=== PATIENT | male | born 1955 | race African-American/Black ===

== ENCOUNTER 2017-05-17 15:29 | Inpatient (IN) | payer OTHER ==
[2017-05-17] MEDS ORDERED: NS 1,000 ML IV SCH (16:45)
[2017-05-17] MEDS: HYDROmorphONE/DILAUDID 1 MG/ML INJ IVP PRN (17:24)
[2017-05-17] MEDS ORDERED: NS 1,000 ML IV ONE (17:36)
[2017-05-17] MEDS ORDERED: ERTAPENEM 1 GM in NS 100 ML IV SCH (18:00)
--- NOTE | 2017-05-17 18:15 | GHP ---
[f rep st] HISTORY AND PHYSICAL DATE OF ADMISSION: 05/17/2017 CHIEF COMPLAINT: Rectal pain. HISTORY OF PRESENT ILLNESS: This is a 62-year-old male with a history of CLL. His last treatment wa s about 2 years ago. His white blood cell count usually stays around 45,000. He has had 4 days of i ncreasing perirectal pain and swelling. He has had chills, but no fever. He has not had a bowel mov ement for about a week. He has pain on urination. His scrotum is swelling as well. He saw his onco logist today, who sent him here. He denies any chest pain or shortness of breath. REVIEW OF SYSTEMS: A 10-point review of systems was obtained. Other than what was stated, was negat liza. PAST MEDICAL HISTORY: 1. CLL, last treated 2014. He sees Dr. Gross. 2. Hypertension. MEDICATIONS: Reviewed. SOCIAL HISTORY: No smoking or alcohol. FAMILY HISTORY: Reviewed and noncontributory. PHYSICAL EXAM: VITAL SIGNS: Afebrile, blood pressure is 108/67, heart rate 97, oxygen saturation 91 % on room air. GENERAL: The patient is well developed, no apparent distress. HEENT: Nonicteric sc lerae. Extraocular movements intact. Moist mucous membranes. NECK: Supple. No thyromegaly. LUNG S: Good effort. Clear to auscultation bilaterally. CARDIOVASCULAR: Regular rate and rhythm. No m urmurs or gallops. ABDOMEN: Positive bowel sounds, soft, nontender, slightly distended. RECTAL: Pe rirectal area shows significant swelling, especially in the perineum. There is a little bit of drain age as well. Scrotum is also swollen. EXTREMITIES: No clubbing, cyanosis, or edema. SKIN: Withou t rash. Dry, intact. NEUROLOGIC: Moving all 4 extremities equally. PSYCH: Normal mood and affect . LABS: White blood cell count 69,000, where normally is 45,000. He does have neutrophils of 13,000 w ith absolute neutrophil count. Sodium is 137, potassium 2.7, BUN 21, creatinine 1.7, glucose 157. ASSESSMENT: This is a 62-year-old male presenting with perirectal abscess. 1. Perirectal abscess. I discussed the case with Surgery, and we will keep him n.p.o. I have start ed IV Invanz for antibiotics. He most likely will go to surgery. 2. Hypokalemia and acute renal failure. This is probably due to decreased p.o. intake, along with h ydrochlorothiazide. Will replace his potassium. Check a magnesium, give IV fluids and follow. 3. History of chronic lymphocytic leukemia. 4. History of hypertension. Hold hydrochlorothiazide. 5. /[id number]/MODL
[2017-05-17] MEDS ORDERED: BUPIVACAINE 0.5% 30 ML SDV ONE (19:11)
--- NOTE | 2017-05-17 19:24 | PDGENHP ---
History & Physical Chief Complaint: RECTAL PAIN History of Present Illness: 62-YEAR-OLD MALE WITH CLL ON NO CHEMOTHERAPY PRESENTS WITH 4 DAYS OF RECTAL PAIN IN HIS RIGHT BUTTOCK AND [place] [id number] BUT HE HAS CHRONICALLY ELEVATED FROM HIS CLL. HE CURRENTLY HAS NO FEVER BUT IS VERY TENDER IN HIS RIGHT PERIRECTAL AREA. RISKS AND OPTIONS BEEN FULLY DISCUSSED AND HE WILL PROBABLY NEED AN I AND D Pertinent Past, Social, Family History: PAST HISTORY: CLL/NO SURGERIES. REVIEW OF SYSTEMS NEGATIVE ON 10 POINT REVIEW AND HE SPECIFICALLY DOES NOT SMOKE. FAMILY HISTORY: NONCONTRIBUTORY. ALLERGIES: NONE. MEDICATIONS: NONE Relevant Physical Exam: GENERAL: HEALTHY APPEARING BUT UNCOMFORTABLE 62-YEAR- OLD MALE. CHEST CLEAR. COR REGULAR RHYTHM. ABDOMEN SOFT NONTENDER. EXTREMITIES ARE BENIGN WITH FULL PULSES FULL RANGE OF MOTION. RECTAL EXAM REVEALS A SWELLING TENDERNESS ERYTHEMA AND DRAINAGE FROM THE RIGHT PERIRECTAL AREA. NEURO EXAM IS PHYSIOLOGIC Cardiorespiratory Assessment: IMPRESSION: PERIRECTAL ABSCESS/RISKS AND OPTIONS FULLY DISCUSSED AND HE WISHED TO PROCEED WITH SURGERY. PLAN IS I AND D OF PERIRECTAL ABSCESS AND EXAM UNDER ANESTHESIA
--- NOTE | 2017-05-17 19:41 | PDANEPAE ---
ANE History of Present Illness here for I and D perirectal abscess ANE Past Medical History - Cardiovascular History Hx Hypertension: No Hx Arrhythmias: No Hx Chest Pain: No Hx Coronary Artery / Peripheral Vascular Disease: No Hx CHF / Valvular Disease: No Hx Palpitations: No - Pulmonary History Hx COPD: No Hx Asthma/Reactive Airway Disease: No Hx Recent Upper Respiratory Infection: No Hx Oxygen in Use at Home: No Hx Sleep Apnea: No - Endocrine History Hx Diabetes: No - Renal History Renal History Comment: arf - Cancer History Hx Cancer: Yes Cancer History Comment: CLL - Chronic Pain History Chronic Pain: No ANE Review of Systems Review of systems is: negative Review of Systems: - Exercise capacity Exercise capacity: >=4 METS ANE Patient History - Allergies Allergies/Adverse Reactions: (seasonal allergies) Allergy (Uncoded 05/17/17 16:32) - Home Medications Home medications: home medication list seen and reviewed Home Medications: Hydrochlorothiazide [HCTZ (*)] 25 mg PO DAILY 05/17/17 [Last Taken 05/16/17] Loratadine [Claritin 10 mg] 10 mg PO DAILY PRN 05/17/17 [Last Taken Unknown] Motrin (*) 800 mg PO DAILY PRN 05/17/17 [Last Taken 05/17/17] Potassium Chloride [Klor-Con M10] 10 meq PO DAILY 05/17/17 [Last Taken 05/16/17] - NPO status NPO Status: no food or drink >8 hours - Anes Hx Anes Hx: no prior problems - Smoking Hx Smoking Status: Unknown if ever smoked ANE Labs/Vital Signs - Vital Signs Height: 193.04 cm Weight: 117.934 kg ANE Physical Exam - Airway Neck exam: FROM Mallampati Score: Class 1 - Pulmonary Pulmonary: no respiratory distress - Cardiovascular Cardiovascular: regular rate and rhythym - ASA Status ASA Status: II ANE Anesthesia Plan Anesthesia Plan: GA w LMA
[2017-05-17] MEDS ORDERED: fentaNYL 100 MCG/2 ML INJ ONE (19:49)
[2017-05-17] MEDS ORDERED: PROPOFOL/EMULSION 500 MG/50 ML BOTTLE IV ONE (19:51)
[2017-05-17] MEDS ORDERED: HYDROmorphONE/DILAUDID 2 MG/ML INJ ONE (19:57)
[2017-05-17] MEDS ORDERED: ALBUTEROL 3 ML DEYVIAL IH PRN (20:20)
[2017-05-17] MEDS ORDERED: NS 500 ML IV PRN (20:20)
[2017-05-17] MEDS ORDERED: ONDANSETRON 4 MG/2 ML VIAL IVP PRN (20:20)
[2017-05-17] MEDS ORDERED: PROMETHAZINE HCL 25 MG/ML INJ IVP PRN (20:20)
[2017-05-17] MEDS ORDERED: fentaNYL 100 MCG/2 ML INJ IVP PRN (20:20)
[2017-05-17] MEDS ORDERED: NALOXONE HCL 0.4 MG/ML INJ IVP PRN ×2 (20:20→21:42)
[2017-05-17] MEDS ORDERED: HYDROmorphONE/DILAUDID 1 MG/ML INJ IVP PRN (20:20)
[2017-05-17] MEDS ORDERED: THROMBIN (BOVINE) 20,000 UNIT SPRAY TP ONE (20:42)
[2017-05-17] MEDS ORDERED: ceFAZolin 1 GM VIAL ONE (20:44)
--- NOTE | 2017-05-17 21:33 | SOAPPROG ---
SOAP Progress Note Assessment/Plan: Assessment: PT WITH BAD PERIRECTAL INFECTION, POSSIBLY INVOLVING SCROTUM RISKS AND OPTIONS FULLY DISCUSSED NONDIABETIC BUT WITH CML BUT NO CHEMO Plan:OR I &D 05/17/17 21:30 Objective: 05/16/17 05/17/17 05/18/17 05:59 05:59 05:59 Intake Total 1000 Balance 1000 ICD10 Worksheet Patient Problems: Problems Problem Status Onset Perirectal abscess Acute - ICD10 Problem Qualifiers (1) Perirectal abscess
--- NOTE | 2017-05-17 21:36 | POSTOPPROG ---
Post Op Note Date of Operation: 05/17/17 Surgeon: Ta Weems Anesthesiologist: CARRIE Anesthesia: GET(General Endotracheal) Pre-op Diagnosis: PERIRECTAL ABSCESS Post-op Diagnosis: FORNIERRE'S GANGRENE Indication: PAIN, INFECTION Procedure: EUA, RADICAL DEBRIDEMENT OF RT BUTTOCK AND SCROTUM WITH SKELOTONIZATION OF Findings: NECROTIZING INFECTION IN RT BUTTOCK EXTENDING INTO RT HEMISCROTUMTO THE PUB Inf/Abcess present in the surg proc area at time of surgery?: Yes Depth: Deep Incisional (Fascial) EBL: Minimal Complications: 0 Specimen(s): NECROTIC TISSUE OF PERINEUM
[2017-05-17] MEDS ORDERED: HYDROmorphONE/DILAUDID 6 MG/30 ML PCA IV PRN (21:42)
[2017-05-17] MEDS ORDERED: NON-FORMULARY NEW DRUG (Loratadine [Claritin 10 Mg] 10 MG) PO PRN (21:44)
[2017-05-17] MEDS ORDERED: CETIRIZINE 10 MG TAB PO PRN (21:53)
[2017-05-17] MEDS ORDERED: CLINDAMYCIN 600 MG/DEXTROSE 50 ML IV SCH (22:00)
[2017-05-17] MEDS: POTASSIUM Cl (KCl) 100 ML IV SCH (22:32)
[2017-05-17] MEDS: VANCOMYCIN 1.5 GM in D5W 250 ML IV SCH (23:25)
[2017-05-18] MEDS ORDERED: PIPERACILLIN/TAZO 3.375 GM/DEX 50 ML IV SCH
[2017-05-18] MEDS: PIPERACILLIN/TAZO 3.375 GM/DEX 50 ML IV SCH ×2 (00:59→06:18)
[2017-05-18] MEDS: POTASSIUM Cl (KCl) 100 ML IV SCH ×3 (01:54→05:14)
[2017-05-18] MEDS ORDERED: ALBUMIN 5% 1,000 ML IV ONE (03:00)
[2017-05-18 05:46] LABS: ADD MORPH? NO; ADD SCAN? YES; ATYPICAL LYMPHOCYTE FLAG 0 (0-99); FRAGMENT RBC FLAG 0 (0-99); HEMATOCRIT 35.3 % (40.0-51.0); HEMOGLOBIN 12.2 g/dL (13.7-17.5); LIPEMIA HEMOLYSIS FLAG 90 (0-99); MEAN CELL HEMOGLOBIN 35.6 pg (27.9-34.1); MEAN CELL HEMOGLOBIN CONCENTR. 34.6 g/dL (32.4-36.7); MEAN CELL VOLUME 102.9 fL (81.5-99.8); MEAN PLATELET VOLUME 11.4 fL (8.7-11.7); PLATELET CLUMPS FLAG 10 (0-99); PLATELET COUNT 106 10^3/uL (150-400); RED BLOOD CELL COUNT 3.43 10^6/uL (4.40-6.38); RED CELL DISTRIBUTION WIDTH 13.2 % (11.5-15.2)
[2017-05-18 05:48] LABS: LEFT SHIFT FLG 130 (0-99)
[2017-05-18 05:57] LABS: ANION GAP 9 mEq/L (8-16); CALCIUM 7.4 mg/dL (8.5-10.4); CARBON DIOXIDE 29 mEq/l (22-31); CHLORIDE 100 mEq/L (97-110); CREATININE 1.2 mg/dL (0.7-1.3); GLOMERULAR FILTRATION RATE > 60; GLUCOSE 152 mg/dL (70-100); MAGNESIUM 1.9 mg/dL (1.6-2.3); POTASSIUM 2.8 mEq/L (3.5-5.2); SODIUM 138 mEq/L (134-144)
[2017-05-18 06:07] LABS: ADD DIFF? YES
[2017-05-18 06:12] LABS: MACROCYTES 1+; PLATELET ESTIMATE DECREASED (ADEQ); TOXIC VACUOLIZATION PRESENT
[2017-05-18] MEDS ORDERED: PROTOCOL POTASSIUM 1 DOSE MISC PRN (07:50)
[2017-05-18] MEDS ORDERED: POTASSIUM CL 10 MEQ TAB PO ONE ×2 (07:51→21:57)
[2017-05-18] MEDS ORDERED: BUPIVACAINE 0.5% 30 ML SDV ONE ×2 (07:53→11:46)
[2017-05-18] MEDS ORDERED: HYDROCHLOROTHIAZIDE 25 MG TAB PO SCH (09:00)
--- NOTE | 2017-05-18 10:27 | PDANEPAE ---
ANE History of Present Illness Patient presents for I&D of a pj-rectal abscess ANE Past Medical History - Cardiovascular History Hx Hypertension: No Hx Arrhythmias: No Hx Chest Pain: No Hx Coronary Artery / Peripheral Vascular Disease: No Hx CHF / Valvular Disease: No Hx Palpitations: No - Pulmonary History Hx COPD: No Hx Asthma/Reactive Airway Disease: No Hx Recent Upper Respiratory Infection: No Hx Oxygen in Use at Home: No Hx Sleep Apnea: No - Endocrine History Hx Diabetes: No - Renal History Renal History Comment: arf - Cancer History Hx Cancer: Yes Cancer History Comment: CLL - Chronic Pain History Chronic Pain: No ANE Review of Systems Review of Systems: ANE Patient History - Allergies Allergies/Adverse Reactions: (seasonal allergies) Allergy (Uncoded 05/17/17 16:32) - Home Medications Home medications: home medication list seen and reviewed Home Medications: Hydrochlorothiazide [HCTZ (*)] 25 mg PO DAILY 05/17/17 [Last Taken 05/16/17] Loratadine [Claritin 10 mg] 10 mg PO DAILY PRN 05/17/17 [Last Taken Unknown] Motrin (*) 800 mg PO DAILY PRN 05/17/17 [Last Taken 05/17/17] Potassium Chloride [Klor-Con M10] 10 meq PO DAILY 05/17/17 [Last Taken 05/16/17] - NPO status NPO Status: no food or drink >8 hours - Anes Hx Anes Hx: no prior problems - Smoking Hx Smoking Status: Unknown if ever smoked ANE Labs/Vital Signs - Labs Result Diagrams: 05/18/17 05:00 05/18/17 05:00 - Vital Signs Blood Pressure: 86/71 Heart Rate: 80 Respiratory Rate: 17 O2 Sat (%): 96 Height: 193.04 cm Weight: 117.934 kg ANE Physical Exam - Airway Neck exam: FROM Mallampati Score: Class 1 Mouth exam: normal dental/mouth exam - Pulmonary Pulmonary: no respiratory distress - Cardiovascular Cardiovascular: regular rate and rhythym - ASA Status ASA Status: III ANE Anesthesia Plan Anesthesia Plan: GA w LMA (RBA discussed)
[2017-05-18] MEDS ORDERED: ALBUMIN 5% 250 ML BOTTLE IV ONE (10:31)
[2017-05-18] MEDS ORDERED: PROPOFOL 200 MG/20 ML VIAL ONE ×2 (10:32→11:35)
[2017-05-18] MEDS ORDERED: fentaNYL 100 MCG/2 ML INJ ONE ×2 (10:32→11:35)
[2017-05-18] MEDS ORDERED: LIDOCAINE 2% 5 ML SDV ONE (10:33)
[2017-05-18] MEDS ORDERED: POTASSIUM Cl (KCl) 10 MEQ in NS 50 ML IV ONE (10:45)
--- NOTE | 2017-05-18 10:53 | GCON ---
[f rep st] CONSULTATION INFECTIOUS DISEASE CONSULTATION DATE OF CONSULTATION: 05/18/2017 REFERRING PHYSICIAN: Joceline More MD REASON FOR CONSULTATION: Kandi gangrene. CHIEF COMPLAINT: Scrotal and right buttock pain. HISTORY OF PRESENT ILLNESS: This is a 62-year-old male with past medical history si gnificant for CLL, last treated [place] [address] Gross. He states that, about 5 days ago, he started to feel unwell suddenly with myalgias. He did not recall any fevers or shaking chills over the past 4-5 days, but progressively felt more unwell each day. On , he had pain involving the tailb one region but over the next successive days, he had increasing pain and swelling involving his right side of the scrotum and right buttock region. He was having some difficulty with urination over the last several days, and has not moved his bowels since 1 week now. He has felt like he needed to mov e it, but he just could not pass any stool. When he went in to see his oncologist yesterday, his [facility] te blood cell count was 69,000. He was sent to the ER. His temperature was 38.1. He was seen by Suzanne gerardo, who took him to the OR. Brief operative note was reviewed and operative findings suggested Fo urnier gangrene. He underwent a radical debridement of the right buttock and scrotum. Cultures were taken, and so far, polymicrobial Gram stain with gram-positive cocci in clusters, gram-positive cocc i in chains, gram-negative rods, and gram-positive rods seen. Cultures are pending. Blood cultures x2 sets are also pending. He was given Invanz prior to surgery but then placed on vancomycin and Zos yn thereafter. He states that his pain initially was 8/10 or 9/10 prior to surgery, and today is mor e of 1/10 or 2/10. He is currently n.p.o. for possible repeat washout this morning. Infectious Dise ase is now consulted for further evaluation and opinion regarding above. REVIEW OF SYSTEMS: GENERAL: Denied any fevers, shaking chills. No headaches. EYES: No change in vision. ENT: No sore throat, difficulty swallowing, ear pain, or ear drainage. CARDIOVASCULAR: De nies any chest pain or rapid heartbeat. RESPIRATORY: Denies any shortness of breath, cough, or sput um production. ABDOMEN: No nausea, vomiting, or pain. He has not moved his bowels in 1 week. PEG TOURINARY: He was having intermittent problems with urination, felt like he needed to urinate but wa s unable to actually pass any urine. When he did pass urine, he stated it was dark but without any b urning sensation, there was no blood in the urine as well, and he has not had any penile discharge. He also denies any penile sores or wounds. MUSCULOSKELETAL: Feels like he has body aches mostly in the lower extremities. Denies any joint pains or joint swelling. SKIN: Denies any open wounds or r ashes. Rest of 10-point review of systems essentially negative except for above. PAST MEDICAL HISTORY: Significant for CLL, last treated [place] [address] Gross; hypertension. PAST SURGICAL HISTORY: None. ALLERGIES: No known drug allergies. SOCIAL HISTORY: He smokes cigars about 4 times a month. He drinks alcohol socially. Denies any ill icit drugs or marijuana. 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 He lives with his and his daughter, who are w ell. He has not had any outside travel internationally recently. He does ride a motorcycle and last time he rode it for a prolonged period of time was back in February, when he went to [place]. Otherwi se, he has mostly been in his car driving around or sitting at his desk related to work. FAMILY HISTORY: Reviewed and found to be noncontributory. MEDICATIONS: As per SEP. PHYSICAL EXAMINATION: VITAL SIGNS: Temperature is 36.7, pulse is 80, respiratory rate is 17, blood pressure 86/71, saturations are 96% on 2 L O2 by the nasal cannula. GENERAL: Patient is resting com fortably in bed. No acute respiratory distress. He is in the intensive care unit. Awake alert, and oriented x3. HEENT. Head is normocephalic, atraumatic. Eyes: There is no conjunctival injection. No petechiae noted. Pupils are reactive to light bilaterally. Oropharynx is clear. There is no p osterior erythema or thrush. CARDIOVASCULAR: S1, S2. Regular rate, rhythm. No murmurs appreciated . RESPIRATORY: Clear to auscultate bilaterally. No rhonchi or rales appreciated. ABDOMEN: Positi ve bowel sounds in all 4 quadrants. Slightly distended. Nontender in the abdominal part. In the lo wer pelvis, or suprapubic region, he has some tenderness especially toward the right side. SCROTUM: Perineum region was not well examined as he has operative dressings in place. The limited examinati on showed that he has some induration, especially involving the right scrotum. It is tender with any slight manipulation of the . LOWER EXTREMITIES: No lower extremity edema. MUSCULOSKELET AL: No joint pain on palpation of the joints. SKIN: No other obvious other rashes or open wounds, other than stated above. LABORATORY DATA: White blood cell count is 32.9, platelets are 106, hemoglobin is 12.2, hematocrit 3 5.3, neutrophils 13, bands 14%. Toxic and Dohle bodies present. Chemistry: Sodium 138, potassium 2.8, chloride is 100, bicarb is 29, BUN is 19, creatinine is 1.2 (down from 1.7). LFTs on admission were within the normal range except for total bilirubin which was slightly elevated at 1.6. Microbiology: Blood cultures x2 sets are pending. Operative cultures are also pending. Gram stai n as stated in the HPI. ASSESSMENT: Kandi gangrene. PLAN: Patient status post extensive debridement yesterday by Surgery; appreciate their evaluation an d care. I would continue with broad-spectrum antimicrobials for now with vancomycin and Zosyn. I am going to increase Zosyn dosing to 4.5 q.6h until cultures are pending, and then can tailor back down if no pseudomonas is isolated. Will order a vancomycin trough for the morning prior to the 4th dose . Care was coordinated with the pharmacy team and nursing staff. The plan of care was discussed in detail with the patient, including the nature of the infection, treatment plans, and course of therap y. I thank you very much for providing this opportunity to care for your patient in consultation. /[id number]/MODL
[2017-05-18] MEDS ORDERED: LR 1,000 ML IV ONE (11:09)
[2017-05-18] MEDS ORDERED: CALCIUM CHLORIDE 1 GM/10 ML INJ ONE (11:25)
[2017-05-18] MEDS ORDERED: THROMBIN (BOVINE) 20,000 UNIT SPRAY TP ONE (11:46)
[2017-05-18] MEDS ORDERED: OXYCODONE/APAP 5/325 TAB PO PRN (12:03)
[2017-05-18] MEDS ORDERED: LR 500 ML IV PRN (12:03)
[2017-05-18] MEDS ORDERED: ONDANSETRON 4 MG/2 ML VIAL IVP PRN (12:03)
[2017-05-18] MEDS ORDERED: HYDROmorphONE/DILAUDID 1 MG/ML INJ IVP PRN (12:03)
[2017-05-18] MEDS ORDERED: NALOXONE HCL 0.4 MG/ML INJ IVP PRN (12:03)
[2017-05-18] MEDS ORDERED: fentaNYL 100 MCG/2 ML INJ IVP PRN (12:03)
[2017-05-18] MEDS ORDERED: ONDANSETRON 4 MG/2 ML VIAL ONE (12:15)
[2017-05-18] MEDS ORDERED: DEXAMETHASONE 4 MG/ML VIAL ONE (12:15)
[2017-05-18] MEDS ORDERED: PHENYLEPHRINE HCL 100 MCG/ML SYR ONE (12:15)
--- NOTE | 2017-05-18 12:26 | POSTOPPROG ---
Post Op Note Date of Operation: 05/18/17 Surgeon: Ta Weems Chairman President And Chief Executive Officer: Felicita Groves Anesthesiologist: Prashanth Urban Anesthesia: GET(General Endotracheal) Pre-op Diagnosis: perirectal abscess, Kandi's gangrene, CLL Post-op Diagnosis: same Indication: 62 Y M s/p I&D yesterday, brought back to OR today for assessment and I&D. Procedure: I&D of perirectal abscess and Kandi's gangrene, R spermatocelectomy Findings: some posterior necrosis, testicles viable Inf/Abcess present in the surg proc area at time of surgery?: Yes Depth: Deep Incisional (Fascial) EBL: 50-100 Complications: none Drains: Tatyana Specimen(s): spermatocele to pathology
--- NOTE | 2017-05-18 12:30 | SOAPPROG ---
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 POD#0&1. Initial infection and necrotic tissue was extensive--tracks towards scrotum and R testicle completely exposed. Tissue quite clean and viable on second look today in OR. Did require some debridement, mostly posteriorly near rectum. Incontinence could be an issue. Will need to observe. Plan to bring back to OR on for 3rd look, dressing change/possible partial closure. Wound is very close to rectum and rectal wall. Not ruling out the possibility of needing a diverting colostomy for healing at some point. Appreciate IM and ID input. 05/18/17 12:26 Objective: Vital Signs Temp Pulse Resp BP Pulse Ox 36.7 C 80 17 86/71 L 96 05/18/17 10:40 05/18/17 10:40 05/18/17 10:40 05/18/17 10:40 05/18/17 10:40 Microbiology 05/17/17 19:26 Gram Stain - Final Buttock - Tissue 05/17/17 20:18 Gram Stain - Final Other - Eswab Laboratory Results 05/18/17 05:00 05/18/17 05:00 05/17/17 05/18/17 05/19/17 05:59 05:59 05:59 Intake Total 1543 Output Total 8709 Balance 5495 ICD10 Worksheet Patient Problems: Problems Problem Status Onset Perirectal abscess Acute
[2017-05-18] MEDS ORDERED: diphenhydrAMINE 25 MG CAP PO SCH ×2 (12:45→14:00)
[2017-05-18] MEDS ORDERED: IMMUNE GLOBULIN 20 GM/200 ML VIAL IV SCH (12:45)
[2017-05-18] MEDS ORDERED: ACETAMINOPHEN 325 MG TAB PO SCH ×2 (12:45→14:00)
[2017-05-18] MEDS: VANCOMYCIN 1.5 GM in D5W 250 ML IV SCH ×2 (13:45→22:07)
[2017-05-18] MEDS: PIPERACILLIN/TAZO 4.5 GM/DEX 100 ML IV SCH ×2 (14:46→17:31)
[2017-05-18] MEDS ORDERED: IMMUNE GLOBULIN 10 GM/100 ML VIAL IV ONE (15:00)
[2017-05-18] MEDS ORDERED: IMMUNE GLOBULIN 20 GM/200 ML VIAL IV ONE ×2 (15:00)
--- NOTE | 2017-05-18 15:52 | ASMTCMCOM ---
CM Note CM Note Notes: Patient is POD # 0 + 1 I&D perirectal abscess. He has a history of CLL but is not receiving chemo at this time. No PT/OT ordered; patient lives indepedently with his . He is scheduled to back to the OR in two days for a dressing change and possible closure. He may need a diverting colostomy. Discharge needs TBD. CM will follow. Date Signed: 05/18/2017 03:52 PM Electronically Signed By:Rosalia Francisco RN
--- NOTE | 2017-05-18 15:55 | GCON ---
[f rep st] CONSULTATION PULMONARY/CRITICAL CARE CONSULTATION DATE OF CONSULTATION: 05/18/2017 REFERRING PHYSICIAN: Ta Weems MD REASON FOR REFERRAL: Evaluation and management of anemia, hypokalemia, and hypotension. HISTORY OF PRESENT ILLNESS: The patient is a 62-year-old male with a history of CLL, not on treatmen t for years, who was in his usual state of good health when about 5 days ago he started to feel unwel l with some myalgias as well as some soreness around his tailbone/buttocks. That increased and began to involve his scrotum. He started to have difficulty with urination and moving his bowels. He esperanza t to see his oncologist and was febrile. He referred to the emergency department, where he was evalu ated by Dr. Weems and taken urgently to the operating room, where he was found to have Kandi gangr alexander with extensive debridement of a large area of his buttocks and scrotum. This was done last night , and the patient was taken back to the operating room today, where Dr. Weems reports there was minim al amount of residual infection, with tissues looking quite viable overall. The plan is for repeat s urgery in 2-3 days to do a final wound closure. The patient reports that his pain control is good. He has no nausea or vomiting and starting to take some p.o. PAST MEDICAL HISTORY: 1. CLL, last treated in 2014. 2. Hypertension. MEDICATIONS: At the time of admission include hydrochlorothiazide, potassium, and loratadine. ALLERGIES: None. SOCIAL HISTORY: Patient drinks occasionally and smokes cigars occasionally. 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 FAMILY HISTORY: Unremarkable. REVIEW OF SYSTEMS: A 10-point review of systems adds nothing to the history of present illness. PHYSICAL EXAMINATION: GENERAL: The patient is awake, alert, in no acute distress. VITAL SIGNS: Bl ood pressure is 85/71 with a heart rate of 83. His temperature was 38.2 at mid day, and is now 37.4. His oxygen saturations are 98% on 2 L. HEENT: Normocephalic and atraumatic. No icterus. NECK: No JVD. Trachea is midline. CHEST: Clear to auscultation. CARDIAC: Regular rate and rhythm witho ut murmur. ABDOMEN: Soft, nontender. Bowel sounds are present. He has some suprapubic tenderness. He has a dressed wound around the groin and buttocks with a JAVED drain that is in place. EXTREMITIES : No clubbing, cyanosis, or edema. NEURO: The patient is awake and alert. He has good motor stren gth in all extremities. LABORATORY: Potassium is 2.8, glucose is 152. White blood count is 33.0, hemoglobin is 12.2. He olmedo s 14% bands. Platelet count was 106. Wound Gram stain is positive for 4+ gram-positive cocci, 3+ gr am-negative rods, and 1+ gram-positive rods. ASSESSMENT: 1. Kandi gangrene. This has been debrided twice in last 24 hours, with marked improvement in the appearance on the 2nd debridement. The patient is currently being treated with Zosyn and vancomycin . Cultures are pending. 2. Chronic lymphocytic leukemia. The patient has a chronically elevated white blood count. He has been seen by Dr. Johnson, who will give him intravenous immunoglobulin to try to help with his immun e response to the infection. 3. Hypokalemia. This is being corrected with intravenous potassium. 4. Hypertension. This is likely due to large volume fluid shifts from the patient's infection. His blood pressure is somewhat low, but stable. He has fairly good urine output. RECOMMENDATIONS: 1. Continue IV fluids. Boluses will be given as needed for hypotension and reduced urine output. 2. Replace potassium and follow. 3. Continue antibiotics as per ID. 4. IVIG as per Dr. Johnson. /[id number]/MODL
--- NOTE | 2017-05-18 17:08 | HOSPPROG ---
Hospitalist Progress Note Assessment/Plan: # perirectal abscess- status post excision today intraoperatively- patient with persistent pain however no systemic symptoms Telemetry(personally reviewed and interpreted) sinus rhythm - blood pressure stable postoperative - continue empiric antibiotics - continue pain meds - NPO after midnight for debridement in a.m. # CLL- WBC 69 -> 32 this am - oncology following Oxygen saturations 98% on 3 L - IVIG today - recheck in am # Leukocytosis - as above # Hypokalemia - repleting aggressively on protocol # proph - lovenox per surgery # diet - regular - the NPO after midnight # dispo - > 2MN as requires surgical intervention for perirectal abscess I have discussed case with Dr. Johnson - will give IVIG today and monitor counts inpatient Subjective: feels well no CP Objective: Vital Signs Temp Pulse Resp BP Pulse Ox 36.6 C 69 21 H 88/57 L 98 05/18/17 16:15 05/18/17 16:45 05/18/17 16:45 05/18/17 16:45 05/18/17 16:45 Microbiology 05/17/17 19:26 Gram Stain - Final Buttock - Tissue 05/17/17 20:18 Gram Stain - Final Other - Eswab Laboratory Results 05/18/17 05:00 05/18/17 05:00 05/17/17 05/18/17 05/19/17 05:59 05:59 05:59 Intake Total 6971 925 Output Total 1480 125 Balance 5491 800 - Physical Exam Constitutional: appears nourished Eyes: anicteric sclera Ears, Nose, Mouth, Throat: moist mucous membranes Cardiovascular: regular rate and rhythym Respiratory: no respiratory distress Gastrointestinal: normoactive bowel sounds Genitourinary: no bladder fullness Skin: warm Musculoskeletal: No asymmetric calves Neurologic: AAOx3 Psychiatric: interacting appropriately Lymph, Heme, Immunologic: no cervical LAD ICD10 Worksheet Patient Problems: Problems Problem Status Onset Perirectal abscess Acute
[2017-05-18] MEDS: D5W 1/2 NS W/ 20 KCl/L 1,000 ML IV SCH (17:27)
[2017-05-18 20:41] LABS: POTASSIUM 3.4 mEq/L (3.5-5.2)
[2017-05-19] MEDS: PIPERACILLIN/TAZO 4.5 GM/DEX 100 ML IV SCH ×4 (00:04→18:00)
[2017-05-19 06:25] LABS: ADD MORPH? NO; ATYPICAL LYMPHOCYTE FLAG 0 (0-99); FRAGMENT RBC FLAG 0 (0-99); LEFT SHIFT FLG 50 (0-99); LIPEMIA HEMOLYSIS FLAG 80 (0-99); MEAN CELL VOLUME 105.6 fL (81.5-99.8); RED CELL DISTRIBUTION WIDTH 13.2 % (11.5-15.2)
[2017-05-19] MEDS: HYDROmorphONE/DILAUDID 1 MG/ML INJ IVP PRN (06:32)
[2017-05-19 06:34] LABS: HEMATOCRIT 28.4 % (40.0-51.0); HEMOGLOBIN 9.3 g/dL (13.7-17.5); MEAN CELL HEMOGLOBIN 34.6 pg (27.9-34.1); MEAN CELL HEMOGLOBIN CONCENTR. 32.7 g/dL (32.4-36.7); MEAN PLATELET VOLUME 11.7 fL (8.7-11.7); PLATELET CLUMPS FLAG 20 (0-99); PLATELET COUNT 158 10^3/uL (150-400); RED BLOOD CELL COUNT 2.69 10^6/uL (4.40-6.38)
[2017-05-19 06:40] LABS: ADD DIFF? YES; ADD SCAN? NO
[2017-05-19 06:52] LABS: ALANINE AMINOTRANSFERASE 27 IU/L (21-72); ALBUMIN 2.3 g/dL (3.5-5.0); ALKALINE PHOSPHATASE 63 IU/L (38-126); ANION GAP 8 mEq/L (8-16); ASPARTATE AMINOTRANSFERASE 23 IU/L (17-59); BILIRUBIN,TOTAL 0.5 mg/dL (0.1-1.4); CALCIUM 8.3 mg/dL (8.5-10.4); CARBON DIOXIDE 29 mEq/l (22-31); CHLORIDE 99 mEq/L (97-110); CREATININE 1.1 mg/dL (0.7-1.3); GLOMERULAR FILTRATION RATE > 60; GLUCOSE 229 mg/dL (70-100); POTASSIUM 3.6 mEq/L (3.5-5.2); SODIUM 136 mEq/L (134-144); TOTAL PROTEIN 4.5 g/dL (6.3-8.2)
[2017-05-19 07:34] LABS: PLATELET ESTIMATE ADEQUATE (ADEQ)
[2017-05-19 07:38] LABS: MACROCYTES 2+
[2017-05-19 07:39] LABS: SMUDGE CELLS 1+; TOXIC GRANULATION PRESENT
[2017-05-19] MEDS ORDERED: POTASSIUM CL 10 MEQ TAB PO ONE ×2 (07:48→19:37)
--- NOTE | 2017-05-19 09:58 | GCON ---
[f rep st] CONSULTATION INPATIENT HEMATOLOGY CONSULTATION DATE OF CONSULTATION: 05/19/2017 REFERRING PHYSICIAN: Olive Carter MD OUTPATIENT ONCOLOGIST: Dr. Sanjiv Gross. REASON FOR CONSULTATION: Perirectal abscess in a patient with chronic lymphocytic leukemia. 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 He was treated in 2010 with FCR and remained in remission until 2014 when he r equired treatment with bendamustine and rituximab. This again induced a complete remission. Over past several months, his white blood cell count has been rising, though he has not had any new symp toms or manifestations of disease, and Dr. Gross has been watching him expectantly. Several days prior to admission, he developed fever, malaise, and rectal pain. He was seen in our cl inic and was found to have a perirectal abscess. He was admitted to the hospital and underwent emerg ent drainage and debridement as there was some gangrenous tissue in the perineum. He was taken back again yesterday to the operating room for additional debridement. He is on broad-spectrum antibiotic s. He says he is feeling much better, and his vital signs have been stable. He also received a dose of IVIG yesterday, 50 g, which is approximately 0.4 g/kg. He has not required IVIG before. Immunog lobulin levels were sent on admission and are currently pending. PAST MEDICAL HISTORY: 1. Chronic lymphocytic leukemia as described above. 2. Hypertension. 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 ALLERGIES: No known drug allergies. FAMILY HISTORY: Noncontributory. SOCIAL HISTORY: Nonsmoker, nondrinker. Lives with his . REVIEW OF SYSTEMS: Aside from pertinent positives in HPI, 14-point review of systems negative. PHYSICAL EXAMINATION: VITAL SIGNS: Temperature is 36.5, blood pressure 104/65, heart rate 64, oxyge n saturation 100% on 2 L. GENERAL: He was well-appearing and in no acute distress. HEENT: His scl erae were anicteric. Oropharynx clear. NECK: Supple without lymphadenopathy. LUNGS: Clear to aus cultation bilaterally. CARDIAC: Regular rate and rhythm. No murmurs, gallops, or rubs. ABDOMEN: Normoactive bowel sounds. Nontender. Nondistended. RECTAL: Examination was deferred. EXTREMITIES : 1+ edema. SKIN: No petechiae or purpura. NEUROLOGIC: He is alert and oriented x3. LABORATORY DATA: White count 61.6, hemoglobin 9.3, platelets 158. Differential was 17% neutrophils, 4% bands, 77% lymphocytes with an absolute lymphocyte count of 47,000. Sodium 136, potassium 3.6, c hloride 99, bicarb 29, BUN 20, creatinine 1.1. LFTs were normal. Albumin 2.3. IMPRESSION: This is a 62-year-old man with a history of chronic lymphocytic leukemia who presented w ith a perirectal abscess. This has been drained. He is on appropriate antibiotics. 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 I will defer to Dr. Gross whether he wishes to continue this in e outpatient setting. Patients are typically continued on at least 6-12 months of monthly [facility] to prevent further infections. His chronic lymphocytic leukemia does not require treatmen t now, but he may take that up with Dr. Gross in the future. We would likely defer any further the rapy until his infection is completely resolved given that any such therapy would likely be immunosup pressive as well. Thank you for this consultation. We will continue to follow Mr. [facility] with you [facility]. /[id number]/MODL
--- NOTE | 2017-05-19 10:07 | SOAPPROG ---
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 POD#1&2. To OR tomorrow for wound check, washout, possible further I&D, and possible partial closure. Wound vac likely not feasible due to location. Some concern regarding future fecal incontinence due to proximity of wounds to rectum and sphincter muscles. Need for temporary diverting colostomy not completely ruled out, but will try to manage wounds and heal without it for now. These concerns discussed with patient today. Continue tay catheter. S: Doing well. Pain is much better compared to admit. O: alert, nad oob in chair nontoxic appearing no wob abd soft wounds with adriana and serosanguinous drainage. not fully viewed as patient sitting in chair. Dr. Weems to [facility] tomorrow. 05/19/17 10:03 Objective: Vital Signs Temp Pulse Resp BP Pulse Ox 36.5 C 64 17 104/65 100 05/19/17 06:00 05/19/17 08:00 05/19/17 08:00 05/19/17 08:00 05/19/17 08:00 Microbiology 05/17/17 20:18 Gram Stain - Final Other - Eswab 05/17/17 19:26 Gram Stain - Final Buttock - Tissue Laboratory Results 05/19/17 06:15 05/19/17 06:15 05/18/17 05/19/17 05/20/17 05:59 05:59 05:59 Intake Total 7878 9610 Output Total 8214 8437 Balance 0396 4210 ICD10 Worksheet Patient Problems: Problems Problem Status Onset Perirectal abscess Acute
[2017-05-19 11:25] LABS: POTASSIUM 3.6 mEq/L (3.5-5.2)
--- NOTE | 2017-05-19 11:46 | PCMIDPN ---
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 GPCs in clusters seen on Gram stain but no Staph aureus has been isolated to date. Will continue vancomycin and Zosyn pending maturity of cultures. If no MRSA isolated, plan to discontinue vancomycin. If no Pseudomonas or Enterococcus isolated, may be able to modify antibiotic therapy for mixed coverage without anti pseudomonal or enterococcal activity such as ertapenem. Will continue at current vancomycin dose with trough of 10 since no MRSA isolated and this should be adequate for skin and soft tissue infection. Await immunoglobulin levels in the setting of CLL. Plans for repeat evaluation under anesthesia tomorrow by surgical service. 05/19/17 11:43 05/19/17 11:50 Subjective: Overall patient feels better with some residual pain in right buttock with sitting. Objective: Vital Signs Temp Pulse Resp BP Pulse Ox 36.5 C 74 16 115/50 L 93 05/19/17 10:20 05/19/17 10:20 05/19/17 10:20 05/19/17 10:20 05/19/17 10:20 Microbiology 05/17/17 19:26 Gram Stain - Final Buttock - Tissue 05/17/17 20:18 Gram Stain - Final Other - Eswab Laboratory Results 05/19/17 06:15 05/19/17 10:45 05/18/17 05/19/17 05/20/17 05:59 05:59 05:59 Intake Total 6971 4670 Output Total 1480 2625 Balance 5491 2045 Vancomycin # 2 Zosyn # 2 Operative cultures with 2+ GPCs in clusters, 2+ GPCs in chains, 4+ Gram- negative rods, and 1+ Gram-positive rods; 4+ E coli on culture to date Laboratory Tests 05/18/17 05/19/17 05:00 11:09 Vancomycin Trough 10.8 IgG Pending IgA Pending IgM Pending - Physical Exam General Appearance: alert, no apparent distress, non-toxic EENT: pharynx normal, No scleral icterus, No conjunctival petechiae Respiratory: lungs clear, No respiratory distress Cardiac/Chest: regular rate, rhythm, systolic murmur (2/6 throughout) Abdomen: non-tender, No distended Male Genitalia: other (Dressed postoperatively with scrotal tenderness to palpation; mild tenderness over upper right buttock) ICD10 Worksheet Patient Problems: Problems Problem Status Onset Perirectal abscess Acute
[2017-05-19] MEDS: VANCOMYCIN 1.5 GM in D5W 250 ML IV SCH ×2 (12:01→22:09)
[2017-05-19] MEDS: OXYCODONE/APAP 5/325 TAB PO PRN (14:07)
--- NOTE | 2017-05-19 15:12 | HOSPPROG ---
Hospitalist Progress Note Assessment/Plan: # Fourniparas's gangrene- status post excision intraoperatively 05/18- patient pain improved since OR yesterday- however still intense attempting to stand Telemetry (personally reviewed and interpreted) sinus rhythm while in ICU Wound Cx - Ecoli and Proteus - continue empiric antibiotics - continue pain meds - NPO after midnight for debridement in a.m. # CLL- WBC 69 -> 32 -> 65 this am - oncology following Oxygen saturations 93% on RA - IVIG yesterday - recheck in am # Leukocytosis - as above # Hypokalemia - repleting aggressively on protocol- 3.6 this am # proph - lovenox per surgery # diet - regular - the NPO after midnight # dispo - > 2MN as requires surgical intervention for perirectal abscess I have discussed case with RN - pt taking adequate PO today will hold IVF Subjective: pain intense when standing or ambulating Objective: Vital Signs Temp Pulse Resp BP Pulse Ox 36.5 C 74 16 115/50 L 93 05/19/17 10:20 05/19/17 10:20 05/19/17 10:20 05/19/17 10:20 05/19/17 10:20 Microbiology 05/17/17 20:18 Gram Stain - Final Other - Eswab 05/17/17 19:26 Gram Stain - Final Buttock - Tissue Laboratory Results 05/19/17 06:15 05/19/17 10:45 05/18/17 05/19/17 05/20/17 05:59 05:59 05:59 Intake Total 6971 4670 800 Output Total 1480 2625 Balance 5491 2045 800 - Physical Exam Constitutional: appears nourished Eyes: anicteric sclera Ears, Nose, Mouth, Throat: moist mucous membranes Cardiovascular: regular rate and rhythym Respiratory: no respiratory distress, no rales or rhonchi Gastrointestinal: normoactive bowel sounds Genitourinary: no bladder fullness Skin: warm Musculoskeletal: No asymmetric calves Neurologic: AAOx3 Psychiatric: interacting appropriately, not anxious Lymph, Heme, Immunologic: no cervical LAD ICD10 Worksheet Patient Problems: Problems Problem Status Onset Perirectal abscess Acute
--- NOTE | 2017-05-19 16:49 | PDINTPN ---
Florist Progress Note Assessment/Plan: Assessment: Kandi's Gangrene: Clinically doing very well. On Vanco/Zosyn. Hypokalemia: Improved with replacement Hypotension: IMproved CLL: S/P IVIG Plan: Continue antibiotics. Follow K+. Transfer to floor. 05/19/17 16:48 Subjective: Feels good, no pain, strength improved. Objective: Vital Signs Temp Pulse Resp BP Pulse Ox 36.7 C 78 16 114/64 91 L 05/19/17 15:17 05/19/17 15:17 05/19/17 15:17 05/19/17 15:17 05/19/17 15:17 Microbiology 05/17/17 19:26 Gram Stain - Final Buttock - Tissue 05/17/17 20:18 Gram Stain - Final Other - Eswab Laboratory Results 05/19/17 06:15 05/19/17 10:45 05/18/17 05/19/17 05/20/17 05:59 05:59 05:59 Intake Total 6971 4670 800 Output Total 1480 2625 Balance 5491 2045 800 Physical Exam - Physical Exam General Appearance: alert, no apparent distress EENT: normal ENT inspection Neck: normal inspection Respiratory: lungs clear, normal breath sounds Cardiac/Chest: regular rate, rhythm, No edema Abdomen: normal bowel sounds, non-tender, soft, other (dressing/drain lower abdomen) Skin: normal color, warm/dry Extremities: normal inspection Neuro/Psych: alert, normal mood/affect, oriented x 3 ICD10 Worksheet Patient Problems: Problems Problem Status Onset Perirectal abscess Acute
[2017-05-19 18:25] LABS: POTASSIUM 3.3 mEq/L (3.5-5.2)
[2017-05-19 19:00] LABS: IMMUNOGLOBULIN A 26 mg/dL (61 - 356); IMMUNOGLOBULIN G 333 mg/dL (767 - 1590); IMMUNOGLOBULIN M 21 mg/dL (37 - 286)
[2017-05-20] MEDS: D5W 1/2 NS W/ 20 KCl/L 1,000 ML IV SCH ×3 (00:29→23:08)
[2017-05-20] MEDS: PIPERACILLIN/TAZO 4.5 GM/DEX 100 ML IV SCH ×5 (00:29→23:09)
[2017-05-20 04:32] LABS: HEMATOCRIT 26.3 % (40.0-51.0); HEMOGLOBIN 8.5 g/dL (13.7-17.5); MEAN CELL HEMOGLOBIN 34.7 pg (27.9-34.1); MEAN CELL HEMOGLOBIN CONCENTR. 32.3 g/dL (32.4-36.7); MEAN CELL VOLUME 107.3 fL (81.5-99.8); RED BLOOD CELL COUNT 2.45 10^6/uL (4.40-6.38); RED CELL DISTRIBUTION WIDTH 13.4 % (11.5-15.2)
[2017-05-20 04:42] LABS: POTASSIUM 3.3 mEq/L (3.5-5.2)
[2017-05-20] MEDS ORDERED: POTASSIUM CL 10 MEQ TAB PO ONE ×2 (07:43→20:15)
[2017-05-20] MEDS: OXYCODONE/APAP 5/325 TAB PO PRN (08:30)
--- NOTE | 2017-05-20 09:48 | SOAPPROG ---
SOAP Progress Note Assessment/Plan: Assessment: 1. CLL, 11q-. Prior Rx with FCR and BR 2. Hypogammagloublinemia 3. Perirectal abscess Clinically improving. s/p 1 dose of IVIG 0.4 g/kg on 05/18. Plan: - continue post-op care - will likely continue IVIG q4 weeks as outpatient to prevent further infection - likely needs Rx of CLL - will defer to outpatient setting, once his wound has healed. 05/20/17 09:47 05/20/17 09:47 Subjective: feels better. dizzy when standing up. no BM yet. Objective: exam unchanged Vital Signs Temp Pulse Resp BP Pulse Ox 36.8 C 65 20 123/73 H 93 05/20/17 08:45 05/20/17 08:45 05/20/17 08:45 05/20/17 08:45 05/20/17 08:45 Microbiology 05/17/17 20:18 Gram Stain - Final Other - Eswab 05/17/17 19:26 Gram Stain - Final Buttock - Tissue Laboratory Results 05/20/17 04:12 05/20/17 04:12 05/19/17 05/20/17 05/21/17 05:59 05:59 05:59 Intake Total 0947 1740 Output Total 3781 1608 960 Balance 2049 637 -600 ICD10 Worksheet Patient Problems: Problems Problem Status Onset Perirectal abscess Acute
[2017-05-20] MEDS: VANCOMYCIN 1.5 GM in D5W 250 ML IV SCH (11:07)
[2017-05-20] MEDS ORDERED: BUPIVACAINE 0.5% 30 ML SDV ONE ×2 (11:54→14:29)
[2017-05-20] MEDS ORDERED: LR 1,000 ML IV ONE (13:33)
--- NOTE | 2017-05-20 14:35 | PDANEPAE ---
ANE History of Present Illness 62 YO MALE WITH Kandi's gangrene for I&D ANE Past Medical History - Cardiovascular History Hx Hypertension: Yes Hx Arrhythmias: No Hx Chest Pain: No Hx Coronary Artery / Peripheral Vascular Disease: No Hx CHF / Valvular Disease: No Hx Palpitations: No - Pulmonary History Hx COPD: No Hx Asthma/Reactive Airway Disease: No Hx Recent Upper Respiratory Infection: No Hx Oxygen in Use at Home: No Hx Sleep Apnea: No Sleep Apnea Screening Result - Last Documented: Positive - Endocrine History Hx Diabetes: No Hypothyroid: No - Renal History Renal History Comment: arf - Liver History Hx Hepatic Disorders: No - Cancer History Hx Cancer: Yes Cancer History Comment: CLL, s/p chemo in 2013. - GI History GERD: no - Chronic Pain History Chronic Pain: No ANE Review of Systems Review of systems is: negative Review of Systems: - Systems Constitutional: Reports: fever ANE Patient History - Allergies Allergies/Adverse Reactions: (seasonal allergies) Allergy (Uncoded 05/17/17 16:32) - Home Medications Home medications: home medication list seen and reviewed Home Medications: Hydrochlorothiazide [HCTZ (*)] 25 mg PO DAILY 05/17/17 [Last Taken 05/16/17] Loratadine [Claritin 10 mg] 10 mg PO DAILY PRN 05/17/17 [Last Taken Unknown] Motrin (*) 800 mg PO DAILY PRN 05/17/17 [Last Taken 05/17/17] Potassium Chloride [Klor-Con M10] 10 meq PO DAILY 05/17/17 [Last Taken 05/16/17] - NPO status NPO Since - Liquids (Date): 05/19/17 NPO Since - Liquids (Time): 00:00 NPO Since - Solids (Date): 05/19/17 NPO Since - Solids (Time): 13:00 - Anes Hx Anes Hx: no prior problems - Smoking Hx Smoking Status: Unknown if ever smoked Marijuana use: No - Family Anes Hx Family Anes Hx: neg - N/A ANE Labs/Vital Signs - Labs Result Diagrams: 05/20/17 04:12 05/20/17 04:12 - Vital Signs Blood Pressure: 121/67 Heart Rate: 59 Respiratory Rate: 16 O2 Sat (%): 97 Height: 193.04 cm Weight: 117.934 kg ANE Physical Exam - Airway Neck exam: FROM Mallampati Score: Class 2 Mouth exam: normal dental/mouth exam - Pulmonary Pulmonary: clear to auscultation - Cardiovascular Cardiovascular: regular rate and rhythym - ASA Status ASA Status: III ANE Anesthesia Plan Anesthesia Plan: GA w LMA
[2017-05-20] MEDS ORDERED: HYDROmorphONE/DILAUDID 2 MG/ML INJ ONE (14:46)
[2017-05-20] MEDS ORDERED: PROPOFOL 200 MG/20 ML VIAL ONE (14:46)
[2017-05-20] MEDS ORDERED: ALBUTEROL 3 ML DEYVIAL IH PRN (15:54)
[2017-05-20] MEDS ORDERED: NALOXONE HCL 0.4 MG/ML INJ IVP PRN (15:54)
[2017-05-20] MEDS ORDERED: HYDROmorphONE/DILAUDID 1 MG/ML INJ IVP PRN (15:54)
[2017-05-20] MEDS ORDERED: PROMETHAZINE HCL 25 MG/ML INJ IVP PRN (15:54)
[2017-05-20] MEDS ORDERED: OXYCODONE/APAP 5/325 TAB PO PRN (15:54)
[2017-05-20] MEDS ORDERED: LR 500 ML IV PRN (15:54)
--- NOTE | 2017-05-20 16:11 | ASMTCMCOM ---
CM Note CM Note Notes: Spoke with RAJWINDER Umanzor from [facility]. ([phone]) . She would like to be informed of dc plan. CM to follow as needs to be determined. Date Signed: 05/20/2017 04:11 PM Electronically Signed By:Fabiola Juarez RN
--- NOTE | 2017-05-20 16:19 | HOSPPROG ---
Hospitalist Progress Note Assessment/Plan: # Aguilarniparas's gangrene- status post excision intraoperatively 05/18- patient pain improved since OR yesterday- however still intense attempting to stand Telemetry (personally reviewed and interpreted) sinus rhythm while in ICU Wound Cx - Ecoli and Proteus - continue empiric antibiotics - continue pain meds - NPO for additional debridement today # CLL- WBC 69 -> 32 -> 54 this am - oncology following Oxygen saturations 93% on RA - IVIG given 05/18 - recheck in am # Leukocytosis - as above # Hypokalemia - repleting aggressively on protocol- 3.3 this am # proph - lovenox per surgery # diet - NPO after midnight # dispo - > 2MN as requires surgical intervention for perirectal abscess I have discussed case with RN - cont IVF while NPO Subjective: pain controlled while laying in bed Objective: Vital Signs Temp Pulse Resp BP Pulse Ox 36.6 C 59 L 16 121/67 H 97 05/20/17 13:18 05/20/17 14:35 05/20/17 14:35 05/20/17 14:35 05/20/17 14:35 Microbiology 05/17/17 19:26 Gram Stain - Final Buttock - Tissue 05/17/17 20:18 Gram Stain - Final Other - Eswab Laboratory Results 05/20/17 04:12 05/20/17 04:12 05/19/17 05/20/17 05/21/17 05:59 05:59 05:59 Intake Total 4670 2819 Output Total 2625 2150 600 Balance 2045 669 -600 - Physical Exam Constitutional: appears nourished Eyes: anicteric sclera Ears, Nose, Mouth, Throat: moist mucous membranes Cardiovascular: regular rate and rhythym Respiratory: no respiratory distress, no rales or rhonchi Gastrointestinal: normoactive bowel sounds Genitourinary: no bladder fullness Skin: warm Musculoskeletal: No asymmetric calves Neurologic: AAOx3 Psychiatric: interacting appropriately Lymph, Heme, Immunologic: no cervical LAD ICD10 Worksheet Patient Problems: Problems Problem Status Onset Perirectal abscess Acute
--- NOTE | 2017-05-20 17:52 | POSTOPPROG ---
Post Op Note Date of Operation: 05/20/17 Surgeon: Ta Weems Anesthesiologist: Mai Anesthesia: GET(General Endotracheal) Pre-op Diagnosis: Necrotizing perineal infection Post-op Diagnosis: Same plus rectal perforation Indication: Dressing change Procedure: Wound debridement and partial closure of perineum/exam under anesthesia and Findings: Posterior rectal perforation will above the dentate line/clean wound Inf/Abcess present in the surg proc area at time of surgery?: Yes Depth: Deep Incisional (Fascial) EBL: Minimal Complications: None Specimen(s): Necrotic skin
--- NOTE | 2017-05-20 18:57 | PCMIDPN ---
Assessment/Plan: Assessment/Plan: * Necrotizing perineal infection with underlying CLL status post debridement x2 : Repeat debridement earlier today with rectal perforation also noted. Culture showing polymicrobial enteric aurelio. No isolation of Staphylococcus aureus or resistant gram-positive aurelio. Therefore, will discontinue vancomycin. Continue Zosyn pending identification of additional gram-negative maggie although this may be able to be narrowed over next 24-48 hours (for example cefazolin plus Flagyl). * Hypogammaglobulinemia associated with underlying CLL: Status post IVIG replacement on 05/18/2017. 05/20/17 18:54 05/20/17 18:55 05/20/17 18:57 Subjective: Patient status post repeat debridement earlier today with finding of rectal perforation present. Partial perineal skin closure performed. Objective: Vital Signs Temp Pulse Resp BP Pulse Ox 36.9 C 69 18 108/65 98 05/20/17 16:50 05/20/17 18:39 05/20/17 18:39 05/20/17 18:39 05/20/17 18:39 Microbiology 05/17/17 19:26 Gram Stain - Final Buttock - Tissue 05/17/17 20:18 Gram Stain - Final Other - Eswab Laboratory Results 05/20/17 04:12 05/20/17 04:12 05/19/17 05/20/17 05/21/17 05:59 05:59 05:59 Intake Total 4670 2819 2082 Output Total 2625 2150 1020 Balance 2045 669 1062 Vancomycin # 3 Zosyn # 3 Operative cultures with growth of E coli, Proteus, and 3rd lactose fermenting gram-negative maggie Blood cultures x2 no growth Laboratory Tests 05/18/17 05/19/17 05:00 11:09 Vancomycin Trough 10.8 IgG 333 L IgA 26 L IgM 21 L - Physical Exam General Appearance: alert, no apparent distress, non-toxic EENT: No scleral icterus, No thrush, No conjunctival petechiae Cardiac/Chest: regular rate, rhythm Abdomen: non-tender, No distended Rectal: other (Dressed postoperatively) ICD10 Worksheet Patient Problems: Problems Problem Status Onset Perirectal abscess Acute
[2017-05-20 20:05] LABS: POTASSIUM 3.7 mEq/L (3.5-5.2)
[2017-05-21] MEDS: oxyCODONE IR 5 MG TAB PO PRN ×3 (02:50→15:55)
[2017-05-21 05:08] LABS: HEMATOCRIT 26.8 % (40.0-51.0); HEMOGLOBIN 8.8 g/dL (13.7-17.5); MEAN CELL HEMOGLOBIN 35.5 pg (27.9-34.1); MEAN CELL HEMOGLOBIN CONCENTR. 32.8 g/dL (32.4-36.7); MEAN CELL VOLUME 108.1 fL (81.5-99.8); RED BLOOD CELL COUNT 2.48 10^6/uL (4.40-6.38); RED CELL DISTRIBUTION WIDTH 13.7 % (11.5-15.2)
[2017-05-21] MEDS: PIPERACILLIN/TAZO 4.5 GM/DEX 100 ML IV SCH ×2 (05:08→12:16)
[2017-05-21 05:21] LABS: POTASSIUM 3.7 mEq/L (3.5-5.2)
[2017-05-21] MEDS ORDERED: POTASSIUM CL 10 MEQ TAB PO ONE (07:44)
[2017-05-21] MEDS: HYDROmorphone HCL/NS/PF 0.4 MG/2 ML SYR IVP PRN ×2 (11:10→11:19)
[2017-05-21] MEDS ORDERED: HYDROmorphone HCL/NS/PF 0.4 MG/2 ML SYR IVP PRN (11:25)
[2017-05-21] MEDS: HYDROmorphONE/DILAUDID 1 MG/ML INJ IVP PRN (11:33)
[2017-05-21] MEDS: LORazepam 2 MG/ML INJ IVP PRN (12:02)
--- NOTE | 2017-05-21 12:22 | PCMIDPN ---
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 Large open wound noted today with very little surrounding induration. WBC not interpretable with underlying CLL but last fever 05/18. E coli and proteus predominate pathogens but suspect anaerobes as well as infection likely originated pj-rectally. --dc zosyn no PsA or more resistant GNR ID'd --start ceftriaxone + flagyl --Dr Weems discussed potential need for temporary colostomy # Hypogammaglobulinemia associated with underlying CLL: Status post IVIG replacement on 05/18/2017 Meds Zosyn 4.5 gm IV q6, # 3 Subjective: patient with some pain undergoing dressing changes no side effect to antibiotics Objective: Vital Signs Temp Pulse Resp BP Pulse Ox 36.9 C 61 19 119/82 H 92 05/21/17 12:12 05/21/17 12:12 05/21/17 12:12 05/21/17 12:12 05/21/17 12:12 Microbiology 05/17/17 20:18 Gram Stain - Final Other - Eswab 05/17/17 19:26 Gram Stain - Final Buttock - Tissue Laboratory Results 05/21/17 04:36 05/21/17 04:36 05/20/17 05/21/17 05/22/17 05:59 05:59 05:59 Intake Total 2819 4022 Output Total 2150 3520 Balance 669 502 General: Pleasant male lying flat in bed no distress Resp: Breathing easy HEENT MMM : tay, large open wound R scrotum, testicle visible w/i wound, small amount necrotic debris but generally base of wound clean without purulence. R scrotal sac surprisingly soft with minimal induration - Time Spent With Patient Time Spent with Patient: greater than 25 minutes (care coordinated with Dr. Weems, Wound care team. Discussed antibiotic changes with patient's at bedside.) Time Spent with Patient: Greater than 25 minutes spent on this patients care, greater than 50% of time spent counseling, educating, and coordinating care regarding the above mentioned plan. ICD10 Worksheet Patient Problems: Problems Problem Status Onset Perirectal abscess Acute
[2017-05-21] MEDS: cefTRIAXone 2 GM in D5W 50 ML IV SCH (13:40)
--- NOTE | 2017-05-21 14:45 | WOCRNPDOC ---
WOCRN Advanced Assessment Note - Skin Integrity Problem, Advanced Assess Perianal Surgical Wound/Incision Dressing Type: ABD Pad, Packing, Other Other Dressing Type: mesh underwear Dressing Description: Intact, Shadowed Closure Description: Sutures Exudate Amount: Moderate Exudate Color: Reddish/Yellow Exudate Characteristic(s): Serosanguinous Integumentary Issue Intervention: Dressing Changed Pj Wound Tissue: Intact Pj Wound Swelling: Mild Wound Bed Color: [place], Red Wound Edges: Well Defined Site Odor: None Skin Integrity Problem Comment: Patient premedicated with PRN dilaudid and turned to his left side with assist from PATSY Manuel and BUSINESS AREA MANAGER Albert. Existing packing moistened with NS to reduce adherance to wound bed but patient still in significant pain with removal. Patient with extensive surgical debridement of perirectal abcess with opening tracking from pj-rectum to right scrotum, held together near the perineum with a small island of sutures. Per Dr. Weems' description, this wound is one large opening that was stitched in one location to keep it from gaping. As such, this wound was impossible to measure. Wounds flushed with NS and gauze. Patient given extra dose of dilauded in addition to ativan by PATSY Manuel before packing. The wound bed was packed as three distinct areas with 5cm cutimed sorbact. The first area of packing was the segment nearest the rectum. The wound bed was packed fully but not tightly. A tail of packing was left outside the wound bed. The segment of the incision anterior to the perineum was packed in similar fashion. Lastly, the patient was rolled to his back and the right scrotum was also packed in a similar manner. The entire area was covered in ABDs and mesh underwear were used to hold the ABDs in place. Patient tolerated the procedure but was clearly uncomfortable and will need medication prior to dressing changes going forward. Wound care will round again on Wednesday.
--- NOTE | 2017-05-21 15:24 | SOAPPROG ---
SOAP Progress Note Assessment/Plan: Assessment: 62-year-old male status post wound debridement, incision and drainage of perineal infection. Patient last taken to the operating room on 05/20. Patient has posterior rectal perforation above the dentate line. Tolerating clear liquid diet, pain well controlled throughout the day the significant pain upon dressing changes. Physical exam Alert Chest CTA bilaterally Deep peroneal wounds examined with wound care during dressing change, no signs of active infection, small amount of bloody discharge. Plan: Continue clear diet Continue dressing changes and wound care, next dressing change Wednesday with the wound will be continued to be packed Still may need further surgery, diverting colostomy 05/21/17 15:22 Objective: Vital Signs Temp Pulse Resp BP Pulse Ox 36.9 C 61 12 119/82 H 92 05/21/17 12:12 05/21/17 12:12 05/21/17 14:09 05/21/17 12:12 05/21/17 12:12 Microbiology 05/17/17 20:18 Gram Stain - Final Other - Eswab 05/17/17 19:26 Gram Stain - Final Buttock - Tissue Laboratory Results 05/21/17 04:36 05/21/17 04:36 05/20/17 05/21/17 05/22/17 05:59 05:59 05:59 Intake Total 2819 4022 50 Output Total 0840 3520 Balance 669 502 50 ICD10 Worksheet Patient Problems: Problems Problem Status Onset Perirectal abscess Acute
--- NOTE | 2017-05-21 18:30 | HOSPPROG ---
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, status post replacement therapy PLANS: -continue current antibiotics -continue current wound management -pain management -DVT prophylaxis as ordered SUBJECTIVE: States he still has fair bit of pain today particularly after his wound dressing change Otherwise no symptoms of fever, no nausea, no shortness of breath OBJECTIVE Vitals reviewed: Stable without fever Exam: alert oriented skin warm dry color ok resps not labored lungs clear BSs heart regular abd soft nondistended nontender, bowel sounds present limbs warm, no edema iv site ok Objective: Vital Signs Temp Pulse Resp BP Pulse Ox 36.7 C 59 L 16 132/79 H 95 05/21/17 16:00 05/21/17 16:00 05/21/17 16:00 05/21/17 16:00 05/21/17 16:00 Microbiology 05/17/17 20:18 Gram Stain - Final Other - Eswab 05/17/17 19:26 Gram Stain - Final Buttock - Tissue Laboratory Results 05/21/17 04:36 05/21/17 04:36 05/20/17 05/21/17 05/22/17 06:59 06:59 06:59 Intake Total 8579 4022 1450 Output Total 5845 2930 700 Balance 669 781 793 ICD10 Worksheet Patient Problems: Problems Problem Status Onset Perirectal abscess Acute
[2017-05-21 19:27] LABS: POTASSIUM 4.1 mEq/L (3.5-5.2)
[2017-05-22] MEDS: ACETAMINOPHEN 325 MG TAB PO PRN ×3 (04:59→22:40)
[2017-05-22] MEDS: oxyCODONE IR 5 MG TAB PO PRN ×3 (05:08→22:12)
[2017-05-22 05:36] LABS: ALANINE AMINOTRANSFERASE 35 IU/L (21-72); ALBUMIN 2.1 g/dL (3.5-5.0); ALKALINE PHOSPHATASE 60 IU/L (38-126); ANION GAP 9 mEq/L (8-16); ASPARTATE AMINOTRANSFERASE 22 IU/L (17-59); BILIRUBIN,TOTAL 0.5 mg/dL (0.1-1.4); CALCIUM 8.3 mg/dL (8.5-10.4); CARBON DIOXIDE 30 mEq/l (22-31); CHLORIDE 102 mEq/L (97-110); GLOMERULAR FILTRATION RATE > 60; GLUCOSE 152 mg/dL (70-100); POTASSIUM 3.3 mEq/L (3.5-5.2); SODIUM 141 mEq/L (134-144); TOTAL PROTEIN 4.7 g/dL (6.3-8.2)
[2017-05-22] MEDS ORDERED: POTASSIUM CL 10 MEQ TAB PO ONE ×2 (08:15→21:39)
--- NOTE | 2017-05-22 08:34 | SOAPPROG ---
SOAP Progress Note Assessment/Plan: Assessment: 1. Kandi's gangrene: Open wounds. on Ceftiaxone and metronidazole. He grew out e. coli and proteus. He wnats to get up today. 2. CLL: not requiring intervention 3. Hypogammaglobulinemia: secondary to the CLL: IVIG given may need to repeat soon given hypermetabolic state. repeat ig levels. Plan: 05/22/17 08:33 05/22/17 08:41 Subjective: Christopher is 62 yo CLL patient of mine admitted with Kandi's gangrene. He is improving but has pain due to the open wounds. He is improving. Objective: Vital Signs Temp Pulse Resp BP Pulse Ox 37.2 C 57 L 16 131/83 H 95 05/22/17 07:42 05/22/17 07:42 05/22/17 07:42 05/22/17 07:42 05/22/17 07:42 Microbiology 05/17/17 20:18 Gram Stain - Final Other - Eswab 05/17/17 19:26 Gram Stain - Final Buttock - Tissue Laboratory Results 05/21/17 04:36 05/22/17 04:48 05/21/17 05/22/17 05/23/17 05:59 05:59 05:59 Intake Total 4022 1450 Output Total 3520 1800 Balance 502 -350 Lungs clear CVS: regular Abdmen: benign. ICD10 Worksheet Patient Problems: Problems Problem Status Onset Perirectal abscess Acute
--- NOTE | 2017-05-22 08:44 | SOAPPROG ---
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 OR on 05/17, 05/18, 05/20. Bedside dressing change on 05/21. Has developed rectal perforation. Doing well considering large problem and wounds. Appreciate IM,ID, oncology input and care. Dressing change planned with wound care tomorrow. VTE ppx c lovenox. D/c tay. Discussed cathartics with Dr. Gandhi--hesitant to stimulate much. Will add colace today. Clear liquid diet. S: Says the pain meds he was given early this am helped a lot. O: alert, nad nontoxic appearing no wob abd soft plan to fully view wound tomorrow 05/22/17 08:39 Objective: Vital Signs Temp Pulse Resp BP Pulse Ox 37.2 C 57 L 16 131/83 H 95 05/22/17 07:42 05/22/17 07:42 05/22/17 07:42 05/22/17 07:42 05/22/17 07:42 Microbiology 05/17/17 20:18 Gram Stain - Final Other - Eswab 05/17/17 19:26 Gram Stain - Final Buttock - Tissue Laboratory Results 05/21/17 04:36 05/22/17 04:48 05/21/17 05/22/17 05/23/17 05:59 05:59 05:59 Intake Total 4022 1450 Output Total 3520 1800 Balance 502 -350 ICD10 Worksheet Patient Problems: Problems Problem Status Onset Perirectal abscess Acute
[2017-05-22] MEDS: cefTRIAXone 2 GM in D5W 50 ML IV SCH (08:52)
[2017-05-22] MEDS: DOCUSATE SODIUM 100 MG CAP PO SCH ×2 (08:52→20:17)
[2017-05-22] MEDS: ENOXAPARIN 40 MG/0.4 ML SYR SC SCH (08:52)
--- NOTE | 2017-05-22 10:09 | HOSPPROG ---
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 After that he is able to walk without much difficulty or discomfort Eating well no nausea No chills or sweats No dyspnea did have a bowel movement today which was not very painful OBJECTIVE Vitals reviewed: T max 38.7 this am otherwise stable Exam: alert oriented skin warm dry color ok resps not labored lungs clear BSs heart regular abd soft nondistended nontender, bowel sounds present limbs warm, no edema iv site ok Laboratory data: Potassium a little bit low today, otherwise chemistry stable Cultures with no new growth Objective: Vital Signs Temp Pulse Resp BP Pulse Ox 37.2 C 57 L 16 131/83 H 95 05/22/17 07:42 05/22/17 07:42 05/22/17 07:42 05/22/17 07:42 05/22/17 07:42 Microbiology 05/17/17 20:18 Gram Stain - Final Other - Eswab 05/17/17 19:26 Gram Stain - Final Buttock - Tissue Laboratory Results 05/21/17 04:36 05/22/17 04:48 05/21/17 05/22/17 05/23/17 06:59 06:59 06:59 Intake Total 4022 1450 Output Total 6481 1800 900 Balance 709 -773 -080 ICD10 Worksheet Patient Problems: Problems Problem Status Onset Perirectal abscess Acute
[2017-05-22] MEDS: HYDROmorphONE/DILAUDID 1 MG/ML INJ IVP PRN ×4 (11:39→17:57)
[2017-05-22] MEDS: LORazepam 2 MG/ML INJ IVP PRN ×2 (12:02→17:57)
--- NOTE | 2017-05-22 14:12 | PCMIDPN ---
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 E coli and proteus predominate pathogens but suspect anaerobes as well as infection likely originated pj-rectally. --continue ceftriaxone + flagyl --hopeful to be present for dressing change Wednesday # fever this a.m. with stable genital exam & 1 loose stool: continue to monitor # Hypogammaglobulinemia associated with underlying CLL: Status post IVIG replacement on 05/18/2017 antibiotics, # 4 Ceftriaxone 2 g IV daily # 2 Metronidazole 500 mg IV Q 8 # 1 Microbiology 05/17 blood cultures (2) NGTD 05/17 surgical cultures: 2 species of E coli and Proteus (RJ to ceftriaxone < 1 for both organisms) Subjective: patient is a little sleep s/p dressing re-do pj-rectally after BM Objective: Vital Signs Temp Pulse Resp BP Pulse Ox 36.9 C 58 L 18 138/82 H 99 05/22/17 13:40 05/22/17 13:40 05/22/17 13:40 05/22/17 13:40 05/22/17 13:40 Microbiology 05/17/17 20:18 Gram Stain - Final Other - Eswab 05/17/17 19:26 Gram Stain - Final Buttock - Tissue Laboratory Results 05/21/17 04:36 05/22/17 04:48 05/21/17 05/22/17 05/23/17 05:59 05:59 05:59 Intake Total 4022 1450 Output Total 3520 1800 900 Balance 502 -350 -900 - Physical Exam General Appearance: alert, no apparent distress Respiratory: lungs clear, No accessory muscle use Cardiac/Chest: regular rate, rhythm Male Genitalia: scrotal edema (mild), other (packing in place right jen-scrotum , minimal surrounding enduration) Skin: No rash Neuro/Psych: alert (a little sleep s/p pain med regiment for dressing change), normal mood/affect, oriented x 3 ICD10 Worksheet Patient Problems: Problems Problem Status Onset Perirectal abscess Acute
[2017-05-22 19:39] LABS: POTASSIUM 3.3 mEq/L (3.5-5.2)
[2017-05-23 05:40] LABS: ADD MORPH? NO; ATYPICAL LYMPHOCYTE FLAG 0 (0-99); FRAGMENT RBC FLAG 0 (0-99); HEMATOCRIT 28.9 % (40.0-51.0); HEMOGLOBIN 9.7 g/dL (13.7-17.5); LEFT SHIFT FLG 10 (0-99); LIPEMIA HEMOLYSIS FLAG 80 (0-99); MEAN CELL HEMOGLOBIN 35.5 pg (27.9-34.1); MEAN CELL HEMOGLOBIN CONCENTR. 33.6 g/dL (32.4-36.7); MEAN CELL VOLUME 105.9 fL (81.5-99.8); MEAN PLATELET VOLUME 11.2 fL (8.7-11.7); PLATELET CLUMPS FLAG 0 (0-99); PLATELET COUNT 143 10^3/uL (150-400); RED BLOOD CELL COUNT 2.73 10^6/uL (4.40-6.38); RED CELL DISTRIBUTION WIDTH 13.3 % (11.5-15.2)
[2017-05-23 05:51] LABS: ADD DIFF? YES; ADD SCAN? NO; ANION GAP 7 mEq/L (8-16); CALCIUM 8.6 mg/dL (8.5-10.4); CARBON DIOXIDE 30 mEq/l (22-31); CHLORIDE 104 mEq/L (97-110); CREATININE 0.9 mg/dL (0.7-1.3); GLOMERULAR FILTRATION RATE > 60; GLUCOSE 129 mg/dL (70-100); POTASSIUM 3.5 mEq/L (3.5-5.2); SODIUM 141 mEq/L (134-144)
[2017-05-23] MEDS: HYDROmorphONE/DILAUDID 1 MG/ML INJ IVP PRN ×4 (06:05→21:56)
[2017-05-23 06:53] LABS: MACROCYTES 1+; PLATELET ESTIMATE DECREASED (ADEQ); POLYCHROMASIA 1+
--- NOTE | 2017-05-23 07:05 | SOAPPROG ---
SOAP Progress Note Assessment/Plan: Assessment: 1. Kandi's gangrene: Open wounds. on Ceftiaxone and metronidazole. He grew out e. coli and proteus. He got up and walked ok. He is doing ok. It'll be a long road to recovery. If there is fistula from the rectum will he need to have a diverting colostomy? 2. CLL: not requiring intervention 3. Hypogammaglobulinemia: Secondary to the CLL: IVIG given may need to repeat soon given hypermetabolic state. Repeat ig levels are pending. We'll continue this as an OP Plan: 05/22/17 08:33 05/22/17 08:41 05/23/17 08:27 05/23/17 08:29 Subjective: Christopher is 62 yo CLL patient of mine admitted with Kandi's gangrene. He is improving but has pain due to the open wounds. He is improving but he has a long way to go Objective: Vital Signs Temp Pulse Resp BP Pulse Ox 37.3 C 56 L 16 135/75 H 98 05/23/17 03:36 05/23/17 03:36 05/23/17 03:36 05/23/17 03:36 05/23/17 03:36 Microbiology 05/17/17 19:26 Gram Stain - Final Buttock - Tissue 05/17/17 20:18 Gram Stain - Final Other - Eswab Laboratory Results 05/23/17 05:30 05/23/17 05:30 05/22/17 05/23/17 05/24/17 05:59 05:59 05:59 Intake Total 1450 0 Output Total 1800 2550 Balance -350 -2550 ICD10 Worksheet Patient Problems: Problems Problem Status Onset Perirectal abscess Acute
[2017-05-23] MEDS ORDERED: POTASSIUM CL 10 MEQ TAB PO ONE ×2 (07:57→20:05)
--- NOTE | 2017-05-23 08:50 | SOAPPROG ---
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 OR on 05/17, 05/18, 05/20. Has developed rectal perforation. +BM x 2 yesterday. Query incompetent anal sphincter/fecal incontinence. Discussed diverting colostomy with patient, ID, and oncology. Will d/w Dr. Weems as well. Added onto surgery schedule for tomorrow, 05/24, but will need to d/w Dr. Weems. NPO p midnight and hold lovenox to reserve ability to go to OR. S: BM x 2. After first BM he wasn't aware he was passing stool. O: alert, nad nontoxic appearing no wob abd soft wound: 05/23/17 08:58 Objective: Vital Signs Temp Pulse Resp BP Pulse Ox 37.3 C 56 L 16 135/75 H 98 05/23/17 03:36 05/23/17 03:36 05/23/17 03:36 05/23/17 03:36 05/23/17 03:36 Microbiology 05/17/17 19:26 Gram Stain - Final Buttock - Tissue 05/17/17 20:18 Gram Stain - Final Other - Eswab Laboratory Results 05/23/17 05:30 05/23/17 05:30 05/22/17 05/23/17 05/24/17 05:59 05:59 05:59 Intake Total 1450 0 Output Total 1800 2550 Balance -350 -2550 ICD10 Worksheet Patient Problems: Problems Problem Status Onset Perirectal abscess Acute
--- NOTE | 2017-05-23 09:03 | PCMIDPN ---
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 E coli and proteus predominate pathogens but suspect anaerobes as well as infection likely originated pj-rectally. Exam today shows some significant ongoing induration perirectally with obvious fecal contamination of the wound. --continue ceftriaxone + flagyl --likely return to the OR tomorrow for further debridement and diverting colostomy # fever 05/22 4am, just low-grade fever at 37.9 since; fevers may reflect ongoing need for debridement # Hypogammaglobulinemia associated with underlying CLL: Status post IVIG replacement on 05/18/2017 antibiotics, # 5 Ceftriaxone 2 g IV daily # 3 Metronidazole 500 mg IV Q 8 #2 Microbiology 05/17 blood cultures (2) NGTD 05/17 surgical cultures: 2 species of E coli and Proteus (RJ to ceftriaxone < 1 for all organisms) 05/23/17 15:26 Subjective: Patient reports that he is doing fair. 2 loose stools yesterday Objective: Vital Signs Temp Pulse Resp BP Pulse Ox 37.3 C 56 L 16 135/75 H 98 05/23/17 03:36 05/23/17 03:36 05/23/17 03:36 05/23/17 03:36 05/23/17 03:36 Microbiology 05/17/17 19:26 Gram Stain - Final Buttock - Tissue 05/17/17 20:18 Gram Stain - Final Other - Eswab Laboratory Results 05/23/17 05:30 05/23/17 05:30 05/22/17 05/23/17 05/24/17 05:59 05:59 05:59 Intake Total 1450 0 Output Total 1800 2550 Balance -350 -2550 - Physical Exam General Appearance: alert, apparent distress (mild due to pain) EENT: No scleral icterus Respiratory: No accessory muscle use Neck: No supple Male Genitalia: tay, other (Right hemiscrotum with large wound with some necrotic material left lateral wound, some mild induration persists, no obvious purulence) Rectal: other (Large open wound right medial buttock tracking to the perineum, laterally induration. Wound was soiled with stool initially.) Skin: No rash Neuro/Psych: alert, normal mood/affect, oriented x 3 - Time Spent With Patient Time Spent with Patient: greater than 35 minutes (Care was coordinated with wound care team and surgical team. Reviewed with patient need for further debridement and diverting colostomy for wound healing.) Time Spent with Patient: Greater than 35 minutes spent on this patients care, greater than 50% of time spent counseling, educating, and coordinating care regarding the above mentioned plan. ICD10 Worksheet Patient Problems: Problems Problem Status Onset Perirectal abscess Acute
[2017-05-23] MEDS: LORazepam 2 MG/ML INJ IVP PRN ×2 (09:12→16:17)
[2017-05-23] MEDS: cefTRIAXone 2 GM in D5W 50 ML IV SCH (09:40)
[2017-05-23] MEDS: ENOXAPARIN 40 MG/0.4 ML SYR SC SCH (09:42)
[2017-05-23] MEDS: DOCUSATE SODIUM 100 MG CAP PO SCH ×2 (09:53→22:04)
--- NOTE | 2017-05-23 10:20 | WOCRNPDOC ---
WOCRN Advanced Assessment Note - Skin Integrity Problem, Advanced Assess Perianal Surgical Wound/Incision Dressing Type: ABD Pad, Yamila Dressing Description: Soiled Exudate Amount: Minimal Exudate Color: Brown, Reddish/Yellow Exudate Characteristic(s): Fecal, Serosanguinous Integumentary Issue Intervention: Dressing Applied Katia Wound Tissue: Swollen, Indurated Katia Wound Swelling: Moderate Wound Bed Color: Red, Yellow Wound Bed Constitution: Red/[place] - Non Granular Tissue, Adhered Slough Skin Integrity Problem Comment: Assessed wound this morning w/ Dr. Jacob and ARNOLD Perez at the bedside. Extensive perirectal wound that tracks from R intergluteal cleft up to R scrotum, w/ narrow sutured island holding the wound partially closed on R intergluteal cleft. Wound on scrotum unpacked first; adhered slough on surface, no necrosis evident deeper in wound and no purulence observed. Periwound tissues are indurated and swollen, w/ some appreciable warmth. This wound was flushed w/ NS, then re-packed w/ NS and Yamila. Patient then turned on his L side to assess wound opening in R intergluteal cleft. Loose , mucous-filled stool observed on outer aspect of the existing dressing, but no stool apparent on gauze removed from deeper aspect of wound. Wound flushed w/ copious NS, no purulence or necrosis evident. Periwound tissue appears more indurated over this aspect of the wound, and warmth is more appreciable here than over the scrotum. Wound re-packed w/ NS and Yamila, and both sites covered w / ABDs and stretch briefs. No attempt to pack wound continuously through; instead anterior and posterior aspects were packed separately. associate store director Dawn present and assisting, given instructions about how to re-pack and cleanse wound should patient stool again. Per Felicita Groves, patient will possibly go to OR tomorrow for diverting colostomy and wash-out of wound. Wound care will check back in after procedure to determine ongoing wound/ostomy needs.
[2017-05-23] MEDS: ACETAMINOPHEN 325 MG TAB PO PRN (16:05)
--- NOTE | 2017-05-23 17:26 | HOSPPROG ---
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, with rectal perforation present posteriorly above the dentate line -there has been some fever last 2 days and at dressing change today there is apparently fecal soilage in the wound bed probably due to the rectal perforation ; for this reason he is being assessed for probable diverting colostomy which would probably be done tomorrow -CLL with expected associated leukocytosis and anemia -hypogammaglobulinemia related to his CLL, status post replacement therapy PLANS: -continue current antibiotics -continue current wound management -probable diverting colostomy tomorrow or Wednesday -pain management -DVT prophylaxis as ordered I reviewed the patient's situation with him in detail. He had a number of questions about his wound, the proposed surgery that is being reviewed, and the healing after his surgery. I reviewed all this with him in detail again and answered his questions to his satisfaction at this time. SUBJECTIVE: He is satisfied with pain control so far Eating well no nausea No chills or sweats No dyspnea did have a bowel movement today which was not very painful OBJECTIVE Vitals reviewed: T max37.9 this am otherwise stable Exam: alert oriented skin warm dry color ok resps not labored lungs clear BSs heart regular abd soft nondistended nontender, bowel sounds present limbs warm, no edema iv site ok Objective: Vital Signs Temp Pulse Resp BP Pulse Ox 39.0 C H 71 18 145/70 H 97 05/23/17 15:55 05/23/17 15:55 05/23/17 15:55 05/23/17 15:55 05/23/17 15:55 Microbiology 05/17/17 19:26 Gram Stain - Final Buttock - Tissue 05/17/17 20:18 Gram Stain - Final Other - Eswab Laboratory Results 05/23/17 05:30 05/23/17 05:30 05/22/17 05/23/17 05/24/17 06:59 06:59 06:59 Intake Total 1450 0 Output Total 1800 2550 450 Balance -350 -7500 450 ICD10 Worksheet Patient Problems: Problems Problem Status Onset Perirectal abscess Acute
[2017-05-23 17:44] LABS: POTASSIUM 3.2 mEq/L (3.5-5.2)
[2017-05-24] MEDS: HYDROmorphONE/DILAUDID 1 MG/ML INJ IVP PRN ×5 (04:27→23:44)
[2017-05-24] MEDS: LORazepam 2 MG/ML INJ IVP PRN ×2 (04:27→23:43)
[2017-05-24 05:56] LABS: % IMMATURE GRANULYOCYTES 0.3 % (0.0-1.1); ABSOLUTE IMMATURE GRANULOCYTES 0.16 10^3/uL (0.00-0.10); ABSOLUTE NRBC COUNT 0.02 10^3/uL (0-0.01); ADD DIFF? NO; ADD MORPH? NO; ADD SCAN? YES; ATYPICAL LYMPHOCYTE FLAG 0 (0-99); FRAGMENT RBC FLAG 0 (0-99); HEMATOCRIT 28.3 % (40.0-51.0); HEMOGLOBIN 9.1 g/dL (13.7-17.5); LEFT SHIFT FLG 10 (0-99); LIPEMIA HEMOLYSIS FLAG 80 (0-99); MEAN CELL HEMOGLOBIN 34.5 pg (27.9-34.1); MEAN CELL HEMOGLOBIN CONCENTR. 32.2 g/dL (32.4-36.7); MEAN CELL VOLUME 107.2 fL (81.5-99.8); MEAN PLATELET VOLUME 11.7 fL (8.7-11.7); PLATELET CLUMPS FLAG 0 (0-99); PLATELET COUNT 156 10^3/uL (150-400); RED BLOOD CELL COUNT 2.64 10^6/uL (4.40-6.38); RED CELL DISTRIBUTION WIDTH 13.4 % (11.5-15.2)
[2017-05-24 06:06] LABS: POTASSIUM 3.6 mEq/L (3.5-5.2)
[2017-05-24 06:38] LABS: SCAN POSITIVE
[2017-05-24 06:45] LABS: MACROCYTES 1+; PLATELET ESTIMATE ADEQUATE (ADEQ); SMUDGE CELLS 2+
[2017-05-24] MEDS ORDERED: POTASSIUM CL 10 MEQ TAB PO ONE ×3 (07:12→23:00)
[2017-05-24] MEDS: cefTRIAXone 2 GM in D5W 50 ML IV SCH (08:25)
[2017-05-24] MEDS: DOCUSATE SODIUM 100 MG CAP PO SCH ×2 (08:26→22:16)
--- NOTE | 2017-05-24 09:06 | PCMIDPN ---
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 E coli and proteus predominate pathogens but suspect anaerobes as well as infection likely originated pj-rectally. Dressings were not removed today. Right hemiscrotum exam is stable. Continued fever likely reflects need for further debridement. --continue ceftriaxone + flagyl, no antibiotic changes --likely return to the OR today for further debridement and diverting colostomy # continued fever: See above # Hypogammaglobulinemia associated with underlying CLL: Status post IVIG replacement on 05/18/2017 antibiotics, # 6 Ceftriaxone 2 g IV daily # 4 Metronidazole 500 mg IV Q 8 #3 Microbiology 05/17 blood cultures (2) NGTD 05/17 surgical cultures: 2 species of E coli and Proteus (RJ to ceftriaxone < 1 for all organisms) Subjective: Scrotal and perineal pain stable today. Pain patient slept well last night. No BMs. Objective: Vital Signs Temp Pulse Resp BP Pulse Ox 37.1 C 63 16 132/82 H 97 05/24/17 08:07 05/24/17 08:07 05/24/17 08:07 05/24/17 08:07 05/24/17 08:07 Laboratory Results 05/24/17 05:28 05/24/17 05:28 05/23/17 05/24/17 05/25/17 05:59 05:59 05:59 Intake Total 0 2950 Output Total 2550 1725 Balance -2550 1225 - Physical Exam General Appearance: alert, no apparent distress EENT: No scleral icterus Respiratory: No accessory muscle use Extremities: No pedal edema Male Genitalia: other (Right jen scrotal with packing in place. Mild to moderate Induration of the scrotum extending to the immediate suprapubic region , stable) Skin: No rash Neuro/Psych: alert, normal mood/affect, oriented x 3 ICD10 Worksheet Patient Problems: Problems Problem Status Onset Perirectal abscess Acute
--- NOTE | 2017-05-24 11:19 | HOSPPROG ---
Hospitalist Progress Note Assessment/Plan: Mr Farley is a 62 y/o male w a history of CLL. He presented to the ER with rectal pain. Today is my first encounter with the patient, chart reviewed. Reviewed his care with Dr Atkinson *Necrotizing perineal infections (Kandi's gangrene)with underlying CLL s/p debridement x 2 OR today for debridement and diverting colostomy Ceftriaxone #4 and Metronidazole #3 likely perirectal is the source *fever BC no growth *CLL with leukocytosis and anemia *Hypogammaglobulinemia associated with underlying CLL: Status post IVIG replacement on 05/18/2017 *DVT prophylaxis: held due to surgery today *Plan : or today/ will ask wound care to see him in the next few days to help him w the colostomy Subjective: White isn't c/o any pain. Objective: Vital Signs Temp Pulse Resp BP Pulse Ox 37.1 C 63 16 132/82 H 97 05/24/17 08:07 05/24/17 08:07 05/24/17 08:07 05/24/17 08:07 05/24/17 08:07 Laboratory Results 05/24/17 05:28 05/24/17 05:28 05/23/17 05/24/17 05/25/17 05:59 05:59 05:59 Intake Total 0 2950 Output Total 2550 1725 Balance -2550 1225 - Physical Exam Constitutional: no apparent distress, appears nourished Eyes: PERRL Ears, Nose, Mouth, Throat: hearing normal Cardiovascular: regular rate and rhythym Respiratory: no respiratory distress Gastrointestinal: normoactive bowel sounds Skin: warm Musculoskeletal: no muscle tenderness Neurologic: AAOx3 Psychiatric: interacting appropriately, other (somewhat withdrawn/ sig other says he is concerned about colostomy) ICD10 Worksheet Patient Problems: Problems Problem Status Onset Perirectal abscess Acute
--- NOTE | 2017-05-24 11:22 | SOAPPROG ---
SOAP Progress Note Assessment/Plan: Assessment: 1. Kandi's gangrene: Open wounds. on Ceftiaxone and metronidazole. He grew out e. coli and proteus. He is having pain mostly when transitioning from laying down to sitting or standing. He will be going to the OR this afternoon at about 1PM. 2. CLL: not requiring intervention 3. Hypogammaglobulinemia: Secondary to the CLL: IVIG given may need to repeat soon given hypermetabolic state. Repeat ig levels are pending. He may need to be redosed later this week. Plan: To OR today ID input appreciated Will check Ig levels and redose when appropriate Subjective: Pain with position transitions. Objective: Vital Signs Temp Pulse Resp BP Pulse Ox 37.1 C 63 16 132/82 H 97 05/24/17 08:07 05/24/17 08:07 05/24/17 08:07 05/24/17 08:07 05/24/17 08:07 Laboratory Results 05/24/17 05:28 05/24/17 05:28 05/22/17 05/23/17 05/24/17 23:59 23:59 23:59 Intake Total 0 2500 450 Output Total 3300 1750 325 Balance -3300 750 125 Physical Exam - Physical Exam General Appearance: alert, mild distress Respiratory: lungs clear Cardiac/Chest: regular rate, rhythm Abdomen: normal bowel sounds, soft Extremities: No swelling Neuro/Psych: oriented x 3 ICD10 Worksheet Patient Problems: Problems Problem Status Onset Perirectal abscess Acute
[2017-05-24] MEDS ORDERED: BUPIVACAINE 0.5% 30 ML SDV ONE (12:59)
[2017-05-24] MEDS ORDERED: POLYMYXIN B SULFATE 500,000 UNIT/10 ML SYR IRR ONE (12:59)
[2017-05-24] MEDS ORDERED: LR 1,000 ML IV ONE (13:04)
--- NOTE | 2017-05-24 13:27 | PDANEPAE ---
ANE History of Present Illness 62 year old male for colostomy. ANE Past Medical History - Cardiovascular History Hx Hypertension: Yes Hx Arrhythmias: No Hx Chest Pain: No Hx Coronary Artery / Peripheral Vascular Disease: No Hx CHF / Valvular Disease: No Hx Palpitations: No - Pulmonary History Hx COPD: No Hx Asthma/Reactive Airway Disease: No Hx Recent Upper Respiratory Infection: No Hx Oxygen in Use at Home: No Hx Sleep Apnea: No Sleep Apnea Screening Result - Last Documented: Positive - Endocrine History Hx Diabetes: No Hypothyroid: No - Renal History Renal History Comment: arf - Liver History Hx Hepatic Disorders: No - Cancer History Hx Cancer: Yes Cancer History Comment: CLL, s/p chemo in 2013. - GI History GERD: no - Chronic Pain History Chronic Pain: No ANE Review of Systems Review of systems is: negative Review of Systems: - Exercise capacity Exercise capacity: >=4 METS ANE Patient History - Allergies Allergies/Adverse Reactions: (seasonal allergies) Allergy (Uncoded 05/17/17 16:32) - Home Medications Home medications: home medication list seen and reviewed Home Medications: Hydrochlorothiazide [HCTZ (*)] 25 mg PO DAILY 05/17/17 [Last Taken 05/16/17] Loratadine [Claritin 10 mg] 10 mg PO DAILY PRN 05/17/17 [Last Taken Unknown] Motrin (*) 800 mg PO DAILY PRN 05/17/17 [Last Taken 05/17/17] Potassium Chloride [Klor-Con M10] 10 meq PO DAILY 05/17/17 [Last Taken 05/16/17] - NPO status NPO Status: no food or drink >8 hours NPO Since - Liquids (Date): 05/24/17 NPO Since - Liquids (Time): 01:00 NPO Since - Solids (Date): 05/24/17 NPO Since - Solids (Time): 13:00 - Anes Hx Anes Hx: no prior problems - Smoking Hx Smoking Status: Never smoked Marijuana use: No - Alcohol Use Alcohol Use: None - Family Anes Hx Family Anes Hx: neg - N/A ANE Labs/Vital Signs - Labs Result Diagrams: 05/24/17 05:28 05/24/17 05:28 - Vital Signs Vital Signs: reviewed preoperatively; see RN documention for details Blood Pressure: 132/82 Heart Rate: 63 Respiratory Rate: 16 O2 Sat (%): 97 Height: 193.04 cm Weight: 117.934 kg ANE Physical Exam - Airway Neck exam: FROM Mallampati Score: Class 2 Mouth exam: normal dental/mouth exam - Pulmonary Pulmonary: no respiratory distress - Cardiovascular Cardiovascular: regular rate and rhythym - ASA Status ASA Status: III ANE Anesthesia Plan Anesthesia Plan: general endotracheal anesthesia Total IV Anesthesia: No
[2017-05-24] MEDS ORDERED: MIDAZOLAM 2 MG/2 ML VIAL IVP ONE (13:33)
[2017-05-24] MEDS ORDERED: PROPOFOL/EMULSION 500 MG/50 ML BOTTLE IV ONE (13:47)
[2017-05-24] MEDS ORDERED: LIDOCAINE 2% 5 ML SDV ONE (13:50)
[2017-05-24] MEDS ORDERED: ROCURONIUM 50 MG/5 ML VIAL ONE ×3 (13:50→15:33)
[2017-05-24] MEDS ORDERED: fentaNYL 100 MCG/2 ML INJ ONE ×2 (13:55→15:44)
[2017-05-24] MEDS ORDERED: LR 500 ML IV PRN (15:30)
[2017-05-24] MEDS ORDERED: NALOXONE HCL 0.4 MG/ML INJ IVP PRN (15:30)
[2017-05-24] MEDS ORDERED: HYDROmorphONE/DILAUDID 1 MG/ML INJ IVP PRN (15:30)
[2017-05-24] MEDS ORDERED: fentaNYL 100 MCG/2 ML INJ IVP PRN (15:30)
[2017-05-24] MEDS ORDERED: ONDANSETRON 4 MG/2 ML VIAL IVP PRN (15:30)
[2017-05-24] MEDS ORDERED: SUGAMMADEX SODIUM 200 MG/2 ML VIAL IVP ONE ×2 (15:48→16:35)
[2017-05-24] MEDS ORDERED: ONDANSETRON 4 MG/2 ML VIAL ONE (15:48)
[2017-05-24 18:40] LABS: POTASSIUM 3.7 mEq/L (3.5-5.2)
--- NOTE | 2017-05-24 19:40 | POSTOPPROG ---
Post Op Note Date of Operation: 05/24/17 Surgeon: Ta Weems Anesthesiologist: Fabrizio Anesthesia: GET(General Endotracheal) Pre-op Diagnosis: Perirectal abscess Post-op Diagnosis: Sign Indication: Wound care Procedure: End sigmoid colostomy with David's pouch/I and D and debridement of pj Findings: Good granulation tissue in the perineal wound but an undrained a pocket the Inf/Abcess present in the surg proc area at time of surgery?: Yes Depth: Deep Incisional (Fascial) EBL: Minimal Complications: None
--- NOTE | 2017-05-24 21:24 | POSTANESTH ---
Post Anesthetic Evaluation Cardiovascular Status: Normal, Stable, Similar to Pre-Op Cond Respiratory Status: Normal, Stable, Similar to Pre-op Cond. Level of Consciousness/Mental Status: Can Participate in Eval, Alert and Oriented Pain Control: Adequate, Prn Tx Ordered Nausea/Vomiting Control: Adequate, Prn Tx Ordered Complications Possibly Related to Anesthesia: None Noted
[2017-05-24] MEDS: TEMAZEPAM 15 MG CAP PO PRN (22:16)
[2017-05-24] MEDS: oxyCODONE IR 5 MG TAB PO PRN (22:17)
[2017-05-24] MEDS: ACETAMINOPHEN 325 MG TAB PO PRN (23:40)
[2017-05-25] MEDS: oxyCODONE IR 5 MG TAB PO PRN ×2 (05:14→19:55)
[2017-05-25 05:20] LABS: ADD MORPH? NO; ATYPICAL LYMPHOCYTE FLAG 0 (0-99); FRAGMENT RBC FLAG 0 (0-99); HEMATOCRIT 31.4 % (40.0-51.0); LEFT SHIFT FLG 10 (0-99); LIPEMIA HEMOLYSIS FLAG 80 (0-99); MEAN CELL HEMOGLOBIN 35.2 pg (27.9-34.1); MEAN CELL HEMOGLOBIN CONCENTR. 31.8 g/dL (32.4-36.7); MEAN CELL VOLUME 110.6 fL (81.5-99.8); MEAN PLATELET VOLUME 11.3 fL (8.7-11.7); PLATELET CLUMPS FLAG 10 (0-99); PLATELET COUNT 175 10^3/uL (150-400); RED BLOOD CELL COUNT 2.84 10^6/uL (4.40-6.38); RED CELL DISTRIBUTION WIDTH 13.3 % (11.5-15.2)
[2017-05-25 05:27] LABS: ADD DIFF? YES; ADD SCAN? NO
[2017-05-25 05:36] LABS: ALANINE AMINOTRANSFERASE 30 IU/L (21-72); ALBUMIN 2.5 g/dL (3.5-5.0); ALKALINE PHOSPHATASE 58 IU/L (38-126); ANION GAP 10 mEq/L (8-16); ASPARTATE AMINOTRANSFERASE 25 IU/L (17-59); BILIRUBIN,TOTAL 0.5 mg/dL (0.1-1.4); CALCIUM 8.6 mg/dL (8.5-10.4); CARBON DIOXIDE 29 mEq/l (22-31); CHLORIDE 106 mEq/L (97-110); CREATININE 1.2 mg/dL (0.7-1.3); GLOMERULAR FILTRATION RATE > 60; GLUCOSE 125 mg/dL (70-100); POTASSIUM 4.1 mEq/L (3.5-5.2); SODIUM 145 mEq/L (134-144); TOTAL PROTEIN 4.6 g/dL (6.3-8.2)
[2017-05-25 06:24] LABS: MACROCYTES 1+; PLATELET ESTIMATE ADEQUATE (ADEQ); POLYCHROMASIA 1+
[2017-05-25 06:25] LABS: SMUDGE CELLS 1+
[2017-05-25] MEDS: cefTRIAXone 2 GM in D5W 50 ML IV SCH (10:10)
[2017-05-25] MEDS: DOCUSATE SODIUM 100 MG CAP PO SCH ×2 (10:10→19:54)
[2017-05-25] MEDS: HYDROmorphONE/DILAUDID 1 MG/ML INJ IVP PRN (10:24)
[2017-05-25] MEDS: LORazepam 2 MG/ML INJ IVP PRN (10:25)
--- NOTE | 2017-05-25 11:22 | WOCRNPDOC ---
WOCRN Advanced Assessment Note - Skin Integrity Problem, Advanced Assess Scrotum Surgical Wound/Incision Dressing Type: Abdominal Pads, Yamila Dressing Description: Intact, Shadowed Exudate Amount: Minimal Exudate Characteristic(s): Serosanguinous Integumentary Issue Intervention: Dressing Changed Wound Bed Constitution: Smooth Tissue, Tunneling (12 oclock 6 cm, 6 oclock 8 cm ) Site Measurement - Head-to-Toe Length X Width X Depth (cm): 6.2x2.2x8 Skin Integrity Problem Comment: Wound that extends through entire scrotum to perinium. Flushed with ns. Area tender for dressing change, however with 2 mg of Dilaudid and 1 mg of Ativan on board the patient was dropping his sats and falling asleep within a minute of stopping removing the packing. Area was repacked with kerlix moistened with ns and ABD. Plan to pack with Hydrofera blue tomorrow to attempt to change dressing less frequently. Ekta GARNER, Felicita Rome RN, Felicita BARRETT and Dr. Manrique all in room for dressing change and care. Oxygen increased to 4 L to maintain SpO2 in the 90's. Perianal Surgical Wound/Incision Dressing Type: ABD Pad, Yamila Dressing Description: Intact, Shadowed Exudate Amount: Moderate Exudate Characteristic(s): Sanguinous Integumentary Issue Intervention: Dressing Changed Wound Bed Constitution: Smooth Tissue, Tunneling, Undermining Wound Edges: Attached Skin Integrity Problem Comment: Very difficult wound to visualize due to patient 's inability to assist with body positioning as he was highly medicated. Estimate length to be 14 cm. There are several pockets that run from wound egdges into various different parts, both at 9 and 3 oclock. 9 oclock pocket is approximatly 8 cm deep. Wound with testes exposed. Flushed with ns. Area tender for dressing change, however with 2 mg of Dilaudid and 1 mg of Ativan on board the patient was dropping his sats and falling asleep within a minute of stopping removing the packing. Area was repacked with kerlix moistened with ns and ABD. Plan to pack with Hydrofera blue tomorrow. Ekta GARNER, Felicita Rome RN, Felicita BARRETT and Dr. Manrique all in room for dressing change and care. Oxygen increased to 4 L to maintain SpO2 in the 90's.
--- NOTE | 2017-05-25 11:22 | HOSPPROG ---
Hospitalist Progress Note Assessment/Plan: Mr Farley is a 62 y/o male w a history of CLL. He presented to the ER with rectal pain. 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 Objective: Vital Signs Temp Pulse Resp BP Pulse Ox 36.9 C 70 16 113/65 99 05/25/17 07:33 05/25/17 07:33 05/25/17 07:33 05/25/17 07:33 05/25/17 07:33 Microbiology 05/17/17 19:26 Gram Stain - Final Buttock - Tissue Anaerobic Culture - Final Escherichia Coli Proteus Mirabilis 05/17/17 20:18 Gram Stain - Final Other - Eswab Anaerobic Culture - Final Escherichia Coli Proteus Mirabilis Escherichia Coli#2 Laboratory Results 05/25/17 05:00 05/25/17 05:00 05/24/17 05/25/17 05/26/17 05:59 05:59 05:59 Intake Total 2950 1750 750 Output Total 1725 2800 925 Balance 1225 -1050 -175 - Physical Exam Constitutional: no apparent distress Eyes: PERRL Ears, Nose, Mouth, Throat: hearing normal Cardiovascular: regular rate and rhythym Respiratory: no respiratory distress Gastrointestinal: normoactive bowel sounds, other (colostomy site pink, no stool , minimal bloody drainage) Skin: warm Neurologic: AAOx3 Psychiatric: interacting appropriately, other (somewhat withdrawn) ICD10 Worksheet Patient Problems: Problems Problem Status Onset Perirectal abscess Acute
--- NOTE | 2017-05-25 12:24 | SOAPPROG ---
SOAP Progress Note Assessment/Plan: Assessment: 1. Kandi's gangrene: Open wounds. on Ceftiaxone and metronidazole. He grew out e. coli and proteus. His pain is better today. He is resting comfortably. Surgery with Dr. Ta Weems on 24 MAY 2017 for additional debridement and diverting colostomy formation. 2. CLL: not requiring intervention 3. Hypogammaglobulinemia: Secondary to the CLL: IVIG given may need to repeat soon given hypermetabolic state. Repeat ig levels are pending. He may need to be redosed later this week. Plan: Post op care per Dr. Weems Appreciate ID input Pending Ig levels and redose when appropriate Subjective: More comfortable today. Objective: Vital Signs Temp Pulse Resp BP Pulse Ox 36.9 C 70 16 113/65 99 05/25/17 07:33 05/25/17 07:33 05/25/17 07:33 05/25/17 07:33 05/25/17 07:33 Microbiology 05/17/17 19:26 Gram Stain - Final Buttock - Tissue Anaerobic Culture - Final Escherichia Coli Proteus Mirabilis 05/17/17 20:18 Gram Stain - Final Other - Eswab Anaerobic Culture - Final Escherichia Coli Proteus Mirabilis Escherichia Coli#2 Laboratory Results 05/25/17 05:00 05/25/17 05:00 05/23/17 05/24/17 05/25/17 23:59 23:59 23:59 Intake Total 2500 1550 1400 Output Total 1750 2225 1825 Balance 166 -471 -995 Physical Exam - Physical Exam General Appearance: other (napping but easily rousable. asking appropriate questions.) Respiratory: lungs clear Cardiac/Chest: regular rate, rhythm Abdomen: other (I can hear a few bowel sounds) ICD10 Worksheet Patient Problems: Problems Problem Status Onset Perirectal abscess Acute
--- NOTE | 2017-05-25 12:25 | PCMIDPN ---
Assessment/Plan: Assessment/Plan: 1. Polymicrobial necrotizing perineal/scrotal infection : -Patient with underlying CLL - s/p debridement x 4 and diverting colostomy - Currently on Ceftriaxone and Flagyl - Wounds examined in coordinations with wound care team, surgery 2. Hypogammaglobulinemia: -s/p IVIG Meds Ceftriaxone 2g daily-05/21/17 Flagyl 500mg q8- 05/21/17 s/p vanco, zosyn Subjective: afebrile. pain with dressing today.denies sob, cough, abd pain. Objective: Vital Signs Temp Pulse Resp BP Pulse Ox 36.9 C 70 16 113/65 99 05/25/17 07:33 05/25/17 07:33 05/25/17 07:33 05/25/17 07:33 05/25/17 07:33 Microbiology 05/17/17 19:26 Gram Stain - Final Buttock - Tissue Anaerobic Culture - Final Escherichia Coli Proteus Mirabilis 05/17/17 20:18 Gram Stain - Final Other - Eswab Anaerobic Culture - Final Escherichia Coli Proteus Mirabilis Escherichia Coli#2 Laboratory Results 05/25/17 05:00 05/25/17 05:00 05/24/17 05/25/17 05/26/17 05:59 05:59 05:59 Intake Total 2950 1750 750 Output Total 1725 2800 925 Balance 1225 -1050 -175 - Physical Exam General Appearance: alert, no apparent distress Respiratory: lungs clear Cardiac/Chest: regular rate, rhythm Extremities: No swelling Abdomen: normal bowel sounds, non-tender, soft, No distended Male Genitalia: other ICD10 Worksheet Patient Problems: Problems Problem Status Onset Perirectal abscess Acute
[2017-05-25] MEDS ORDERED: ENOXAPARIN 40 MG/0.4 ML SYR SC ONE (15:00)
[2017-05-25 16:44] LABS: IMMUNOGLOBULIN A 30 mg/dL (61 - 356); IMMUNOGLOBULIN G 700 mg/dL (767 - 1590); IMMUNOGLOBULIN M 35 mg/dL (37 - 286)
--- NOTE | 2017-05-25 16:50 | SOAPPROG ---
SOAP Progress Note Assessment/Plan: Assessment/Plan: 62 Y M c CLL s/p I&D or perirectal abscess with Kandi's gangrene and rectal perforation. OR on 05/17, 05/18, 05/20, 05/24 for debridement. Also diverting colostomy on 05/24. Seen earlier today with wound care and ID. Wounds were clean. Ostomy was pink. Discussed using HFB at next dressing change--may be better tolerated. Also, Dr. Weems considering eventual wound vac placement in the OR at some point, but this could be very technically challenging due to location and rectal perforation. S: Comfortable this morning. Dressing change was painful despite premedication. Still, pt nodding off and dropping sats in between difficult portions of dressing change so wouldn't recommend increased dosages. O: alert, nad nontoxic appearing no wob abd soft wound: serosanguinous drainage. no odor. surrounding tissue softer. 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 +early granulation. 05/25/17 16:46 Objective: Vital Signs Temp Pulse Resp BP Pulse Ox 36.9 C 70 16 113/65 99 05/25/17 07:33 05/25/17 07:33 05/25/17 07:33 05/25/17 07:33 05/25/17 07:33 Microbiology 05/17/17 19:26 Gram Stain - Final Buttock - Tissue Anaerobic Culture - Final Escherichia Coli Proteus Mirabilis 05/17/17 20:18 Gram Stain - Final Other - Eswab Anaerobic Culture - Final Escherichia Coli Proteus Mirabilis Escherichia Coli#2 Laboratory Results 05/25/17 05:00 05/25/17 05:00 05/24/17 05/25/17 05/26/17 05:59 05:59 05:59 Intake Total 2950 1750 750 Output Total 1723 3200 92 Balance 2437 -6410 -966 ICD10 Worksheet Patient Problems: Problems Problem Status Onset Perirectal abscess Acute
--- NOTE | 2017-05-25 17:12 | ASMTCMCOM ---
CM Note CM Note Notes: Patient to surgery today. Because of patients wounds he made to go to an LTAC. Its perhaps too early yet to know if he will quality for SNF. Case management will follow. Date Signed: 05/25/2017 05:11 PM Electronically Signed By:NILESH Sullivan
--- NOTE | 2017-05-25 17:13 | ASMTCASEMG ---
Date Signed: 05/25/2017 05:12 PM Electronically Signed By:NILESH Sullivan
[2017-05-25 19:05] LABS: POTASSIUM 3.4 mEq/L (3.5-5.2)
--- NOTE | 2017-05-25 20:38 | GOP ---
[f rep st] OPERATIVE REPORT DATE OF OPERATION: 05/24/2017 SURGEON: Ta Weems MD PREOPERATIVE DIAGNOSIS: Kandi gangrene in possible posterior rectal perforation. POSTOPERATIVE DIAGNOSIS: Kandi gangrene in possible posterior rectal perforation. PROCEDURE PERFORMED: Diverting end colostomy with David's pouch. FINDINGS: Patient was found have a mobile sigmoid colon, which easily could be brought up to the surface. DESCRIPTION OF PROCEDURE: The patient taken to the operating room where he received satisfactory general endotracheal anesthesia by Dr. Dinh. He was placed in supine position, prepped and draped in the usual sterile fashion. An oblique left lower quadrant incision was made and carried through the subcutaneous tissue. The fascia was incised. The rectus muscle was split in the direction of their fibers. The posterior sheath was incised. Peritoneum was entered. The sigmoid colon was then identified, freed up and a loop was brought up into the wound. The proximal colon was then divided with a OFE stapler. Mesentery was partially split with 3-0 Vicryl ties. The distal end was marked with some 3-0 Prolene sutures, and was then returned into the abdomen just below the fascial level. The proximal end was sutured to the fascia with interrupted 3-0 Vicryl sutures, circumferentially. The skin incision was turned into an oval with excising some additional skin. The ostomy was then opened and matured with 4-0 chromic sutures securing it back to the skin edges. Hemostasis was assured. The ostomy appeared to be quite patent and smooth with no twists or kinks. Appliance was applied. He tolerated the procedure well. The wound was infiltrated with 0.5% Marcaine. There were no complications, taken to the recovery room in good condition. /[id number]/MODL MTDD
--- NOTE | 2017-05-25 20:43 | GOP ---
[f rep st] OPERATIVE REPORT DATE OF OPERATION: 05/24/2017 SURGEON: Ta Weems MD PREOPERATIVE DIAGNOSIS: Kandi gangrene. POSTOPERATIVE DIAGNOSIS: Kandi gangrene, plus perirectal abscess. PROCEDURE PERFORMED: Wound exploration, debridement, an I and D of perirectal abscess. FINDINGS: Patient was found to have good granulation tissue through the main portions of the previous open wound. There was some necrotic tissue at the base of the penis, which was debrided. There was a pocket in the perirectal space containing purulent material which was opened up. DESCRIPTION OF PROCEDURE: The patient was taken to the operating room. Under general endotracheal anesthesia by Dr. Dinh, he was placed in the low stirrup position, prepped and draped in usual sterile fashion. The previous old packing was removed. The wound was then prepped and draped and copiously irrigated with neomycin, bacitracin solution. Any necrotic areas visualized were then sharply debrided back to good bleeding healing tissue. Lower in the wound near the perirectal space, dissection extended down. Abscess pocket was encountered containing a pocket of purulent material. This was drained and then copiously irrigated. The wound at that point was then infiltrated with 0.5 % Marcaine and then packed with 3 inch Yamila soaked in Betadine. There were no complications. He tolerated the procedure well. He was taken to the recovery room in good condition. /[id number]/MODL MTDD
[2017-05-25] MEDS: ACETAMINOPHEN 325 MG TAB PO PRN (21:00)
[2017-05-25] MEDS ORDERED: POTASSIUM CL 10 MEQ TAB PO ONE (21:07)
[2017-05-26] MEDS: ONDANSETRON 4 MG/2 ML VIAL IVP PRN (05:27)
[2017-05-26 05:35] LABS: ADD MORPH? NO; ATYPICAL LYMPHOCYTE FLAG 0 (0-99); FRAGMENT RBC FLAG 0 (0-99); HEMATOCRIT 28.8 % (40.0-51.0); HEMOGLOBIN 8.9 g/dL (13.7-17.5); LEFT SHIFT FLG 20 (0-99); LIPEMIA HEMOLYSIS FLAG 80 (0-99); MEAN CELL HEMOGLOBIN 33.6 pg (27.9-34.1); MEAN CELL HEMOGLOBIN CONCENTR. 30.9 g/dL (32.4-36.7); MEAN CELL VOLUME 108.7 fL (81.5-99.8); MEAN PLATELET VOLUME 11.7 fL (8.7-11.7); PLATELET CLUMPS FLAG 20 (0-99); PLATELET COUNT 206 10^3/uL (150-400); RED BLOOD CELL COUNT 2.65 10^6/uL (4.40-6.38); RED CELL DISTRIBUTION WIDTH 13.7 % (11.5-15.2)
[2017-05-26 05:46] LABS: ADD DIFF? YES
[2017-05-26 05:47] LABS: ADD SCAN? NO
[2017-05-26 05:55] LABS: ANION GAP 9 mEq/L (8-16); CALCIUM 8.7 mg/dL (8.5-10.4); CARBON DIOXIDE 31 mEq/l (22-31); CHLORIDE 106 mEq/L (97-110); CREATININE 1.1 mg/dL (0.7-1.3); GLOMERULAR FILTRATION RATE > 60; GLUCOSE 142 mg/dL (70-100); POTASSIUM 3.6 mEq/L (3.5-5.2); SODIUM 146 mEq/L (134-144)
[2017-05-26] MEDS: ONDANSETRON DISINTEGRATING 4 MG TAB PO PRN (06:20)
[2017-05-26 06:51] LABS: PLATELET ESTIMATE ADEQUATE (ADEQ); SMUDGE CELLS 1+
[2017-05-26 06:52] LABS: MACROCYTES 1+
[2017-05-26 06:53] LABS: POLYCHROMASIA 1+
[2017-05-26] MEDS ORDERED: oxyCODONE IR 5 MG TAB PO PRN (07:37)
[2017-05-26] MEDS ORDERED: HYDROmorphONE/DILAUDID 6 MG/30 ML PCA IV PRN (07:37)
[2017-05-26] MEDS ORDERED: POTASSIUM CL 10 MEQ TAB PO ONE (07:55)
[2017-05-26] MEDS: DOCUSATE SODIUM 100 MG CAP PO SCH ×2 (08:38→20:18)
[2017-05-26] MEDS: ENOXAPARIN 40 MG/0.4 ML SYR SC SCH (08:38)
[2017-05-26] MEDS: cefTRIAXone 2 GM in D5W 50 ML IV SCH (08:38)
--- NOTE | 2017-05-26 10:13 | PCMIDPN ---
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 Currently covering with ceftriaxone and Flagyl. Report from wound Care indicates that the wound is slowly healing. Patient has an operating diverting colostomy. Patient states that he is doing somewhat better. He looks a bit diaphoretic however in the bed today. Plan: 1. Continue both ceftriaxone and Flagyl. 2. Continue wound care. 3. Follow clinical course. 05/26/17 18:13 05/26/17 18:14 Subjective: Patient is resting in his hospital bed. He is mildly diaphoretic. Denies any other subjective fevers or chills. He is just about to get up for some physical therapy. Objective: Ceftriaxone # 6 Flagyl # 5 Vital Signs Temp Pulse Resp BP Pulse Ox 36.9 C 80 18 138/84 H 89 L 05/26/17 07:58 05/26/17 07:58 05/26/17 07:58 05/26/17 07:58 05/26/17 07:58 Laboratory Results 05/26/17 05:07 05/26/17 05:07 05/25/17 05/26/17 05/27/17 05:59 05:59 05:59 Intake Total 1750 4185 Output Total 2800 4125 30 Balance -1050 60 -30 - Physical Exam General Appearance: WD/WN, alert, no apparent distress, toxic (Mildly) Respiratory: lungs clear, normal breath sounds Cardiac/Chest: regular rate, rhythm, No tachycardia Skin: normal color, warm/dry, No rash Neuro/Psych: alert, normal mood/affect, oriented x 3 ICD10 Worksheet Patient Problems: Problems Problem Status Onset Perirectal abscess Acute
[2017-05-26] MEDS: LORazepam 2 MG/ML INJ IVP PRN (10:36)
[2017-05-26] MEDS: HYDROmorphONE/DILAUDID 1 MG/ML INJ IVP PRN (10:36)
--- NOTE | 2017-05-26 11:56 | WOCRNPDOC ---
WOCRN Advanced Assessment Note - Skin Integrity Problem, Advanced Assess Perianal Surgical Wound/Incision Dressing Type: Abdominal Pads, Kerlix Dressing Description: Intact, Shadowed Exudate Amount: Moderate Exudate Characteristic(s): Serosanguinous Integumentary Issue Intervention: Dressing Changed Katia Wound Tissue: Painful/Tender Wound Bed Constitution: Granulation Tissue, Smooth Tissue, Tunneling, Undermining Wound Edges: Attached Site Odor: Slight, Musky Skin Integrity Problem Comment: Removed packing and was able to position patient better for wound care (in lithotomy). Removed kerlix and then flushed with ns. Placed one piece of hydrofera blue classic cut into a spiral and moistened with ns into large tunnel at 12 oclock (that connects with scrotum) and then a second full piece folded over into the remainder of the wound. These were secured by Hy Tape and covered with ABD. Mar RN in room, Frandy SENIOR CUSTOMER SERVICE REPRESENTATIVE, Delia SENIOR CUSTOMER SERVICE REPRESENTATIVE, Felicita RN, Felicita RUIZ all in room for care. Scrotum Surgical Wound/Incision Dressing Type: Kerlix Dressing Description: Intact, Shadowed Exudate Amount: Minimal Exudate Characteristic(s): Serosanguinous Katia Wound Tissue: Swollen Wound Bed Constitution: Smooth Tissue, Tunneling, Undermining Skin Integrity Problem Comment: Removed kerlix and then flushed with ns. Large tunnel at 12 oclock packed lightly with basia Ag+ and 1/4 inch algidex packing. Will attempt to place 1/2 of a hydrofera blue tunneling dressing into tract tomorrow. Placed one piece of hydrofera blue classic moistened cut into a spiral and moistened with ns into the wound. It was secured by Hy Tape and covered with ABD. Underwear was reapplied.
--- NOTE | 2017-05-26 14:21 | SOAPPROG ---
SOAP Progress Note Assessment/Plan: Assessment: 1. Kandi's gangrene: Open wounds. on Ceftiaxone and metronidazole. He grew out e. coli and proteus. His pain is better today. He is resting comfortably. Surgery with Dr. Ta Weems on 24 MAY 2017 for additional debridement and diverting colostomy formation. 2. CLL: not requiring intervention 3. Hypogammaglobulinemia: Secondary to the CLL: IgG from 24 MAY 2017 was adequate at 700. I'll recheck on 31 MAY 2017 Plan: Post op care per Dr. Weems Appreciate ID input Check IgG on 31 MAY 2017 Subjective: No new complaints Objective: Vital Signs Temp Pulse Resp BP Pulse Ox 36.5 C 75 18 114/76 97 05/26/17 12:35 05/26/17 12:35 05/26/17 12:35 05/26/17 12:35 05/26/17 12:35 Laboratory Results 05/26/17 05:07 05/26/17 05:07 05/24/17 05/25/17 05/26/17 23:59 23:59 23:59 Intake Total 1550 2835 2500 Output Total 2225 4025 1380 Balance -675 -1190 1120 Physical Exam - Physical Exam General Appearance: alert Neuro/Psych: oriented x 3 ICD10 Worksheet Patient Problems: Problems Problem Status Onset Perirectal abscess Acute
--- NOTE | 2017-05-26 15:13 | HOSPPROG ---
Hospitalist Progress Note Assessment/Plan: Mr Farley is a 62 y/o male w a history of CLL. He presented to the ER with rectal pain. 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 Script given to for a hospital bed. Subjective: White is c/o being bloated. pain is well managed w [facility] [employer]. Objective: Vital Signs Temp Pulse Resp BP Pulse Ox 36.5 C 82 19 122/74 H 97 05/26/17 14:50 05/26/17 14:50 05/26/17 14:50 05/26/17 14:50 05/26/17 14:50 Laboratory Results 05/26/17 05:07 05/26/17 05:07 05/25/17 05/26/17 05/27/17 05:59 05:59 05:59 Intake Total 1750 4185 500 Output Total 2800 4125 380 Balance -1050 60 120 - Physical Exam Constitutional: uncomfortable Eyes: PERRL Ears, Nose, Mouth, Throat: hearing normal Cardiovascular: regular rate and rhythym Respiratory: no respiratory distress Gastrointestinal: normoactive bowel sounds, distension, other (colostomy with loose stool) Skin: warm Musculoskeletal: generalized weakness Neurologic: AAOx3 Psychiatric: interacting appropriately ICD10 Worksheet Patient Problems: Problems Problem Status Onset Perirectal abscess Acute
--- NOTE | 2017-05-26 16:00 | ASMTCMCOM ---
CM Note CM Note Notes: Pt is POD #1. DC needs not clear yet. Discussed w/RN and reviewed chart. Pt has involved wound care which requires several people at this time. OT recommending HHC vs SNF, awaiting PT recommendation. Met w/pt who said he lives at home w/ and daughter. CM w/f and plan for dc needs as they become more clear; will certainly need wound care follow up whether at home or in facility. Date Signed: 05/26/2017 03:59 PM Electronically Signed By:Rosy Box RN
[2017-05-26] MEDS ORDERED: BACLOFEN 10 MG TAB PO PRN (16:41)
[2017-05-26] MEDS ORDERED: METOCLOPRAMIDE 10 MG/2 ML VIAL IVP ONE (16:46)
[2017-05-27 05:34] LABS: ADD MORPH? NO; ADD SCAN? YES; ATYPICAL LYMPHOCYTE FLAG 0 (0-99); FRAGMENT RBC FLAG 0 (0-99); HEMATOCRIT 25.8 % (40.0-51.0); HEMOGLOBIN 7.9 g/dL (13.7-17.5); LEFT SHIFT FLG 10 (0-99); LIPEMIA HEMOLYSIS FLAG 80 (0-99); MEAN CELL HEMOGLOBIN 33.6 pg (27.9-34.1); MEAN CELL HEMOGLOBIN CONCENTR. 30.6 g/dL (32.4-36.7); MEAN CELL VOLUME 109.8 fL (81.5-99.8); MEAN PLATELET VOLUME 11.8 fL (8.7-11.7); PLATELET CLUMPS FLAG 30 (0-99); PLATELET COUNT 221 10^3/uL (150-400); RED BLOOD CELL COUNT 2.35 10^6/uL (4.40-6.38); RED CELL DISTRIBUTION WIDTH 13.9 % (11.5-15.2)
[2017-05-27 05:40] LABS: POTASSIUM 3.6 mEq/L (3.5-5.2)
[2017-05-27 06:06] LABS: ADD DIFF? YES; SCAN POSITIVE
[2017-05-27 07:15] LABS: PLATELET ESTIMATE ADEQUATE (ADEQ)
[2017-05-27 07:16] LABS: SMUDGE CELLS 1+
[2017-05-27 07:18] LABS: MACROCYTES 1+; POLYCHROMASIA 1+
[2017-05-27] MEDS ORDERED: POTASSIUM CL 10 MEQ TAB PO ONE ×2 (08:22→21:19)
[2017-05-27] MEDS: DOCUSATE SODIUM 100 MG CAP PO SCH ×2 (09:27→20:19)
[2017-05-27] MEDS: cefTRIAXone 2 GM in D5W 50 ML IV SCH (09:29)
[2017-05-27] MEDS: ENOXAPARIN 40 MG/0.4 ML SYR SC SCH (09:37)
[2017-05-27] MEDS: HYDROmorphONE/DILAUDID 1 MG/ML INJ IVP PRN ×2 (09:42→10:16)
--- NOTE | 2017-05-27 11:41 | WOCRNPDOC ---
[facility] Advanced Assessment Note - Skin Integrity Problem, Advanced Assess Scrotum Surgical Wound/Incision Dressing Type: ABD Pad, Hydrofera Blue, Packing (1/4 inch algidex in tunnel at 12 oclock) Dressing Description: Intact, Shadowed Exudate Amount: Scant Exudate Characteristic(s): Serosanguinous Integumentary Issue Intervention: Dressing Changed Katia Wound Tissue: Swollen Katia Wound Swelling: Moderate Wound Bed Color: [place], White Wound Bed Constitution: Smooth Tissue Wound Edges: Attached Site Odor: None Skin Integrity Problem Comment: Patient premedicated with 2 mg Dilaudid and he tolerated the entire scrotal dressing change adequately. Removed packing from 12 oclock tunnel and noted that much of HFB that was touching wound bed had changed to white, so it too was removed. Flushed area with ns and then repacked 12 oclock wound with 1/2 of a hydrofera blue tunnleing dressing cut lengthwise. This was placed into wound dry and then moistened from the outside. The remainder of the dressing was a hydrofera blue classic cut into a spiral and then packed into wound after it was moistened with ns. Tomorrow if patient does not go to the OR for a vac placement, patient may benefit from 0.5 mg of Ativan. 1 mg of Ativan may no longer be necessary. Wound care will round again tomorrow. - Colostomy Assessment, Advanced Left Lower Abdomen Colostomy Stoma Colostomy Appliance Intact: No (possibly leaking at 3 oclock) Colostomy Appliance Currently in Use: Two Piece Flat, 2 3/4 (is a little small ) Stoma Color: Red Stoma Turgor: Moist Stoma Shape: Oval Stoma Height: Protruding Mucocutaneus Junction: Intact Colostomy Effluent: Fecal, Pasty Colostomy Details: End, David's Pouch Peristomal Skin: Intact Colostomy Comment/Treatment Details: Initial education began with ostomy change at bedside. Patient reluctant to look at stoma. Wound RN talked him through the pouch change and how to close and open a pouch. 2 3/4 appliance from supply room is slightly too small and larger 3 inch one piece appliances from [employer] will be sent down. Day one ostomy education material will be initated today. Patient will also be started on [employer] secure start program. Also [facility] order will be initiated.
--- NOTE | 2017-05-27 14:26 | HOSPPROG ---
Hospitalist Progress Note Assessment/Plan: # Kandi's gangrene- status post OR x 3 now with diverting colostomy with Hartmans pouch- patient pain with ambulation improved Wound Cx - Ecoli and Proteus - cont cetriaxone day #7 and metronidazole day# 6 - continue prn pain meds # CLL- WBC 61 this am - pt with hypogammaglobulinemia - IVIG given 05/18- last level 700 Oxygen saturations 93% on RA - recheck immunoglobulins 05/31 - recheck CBC in am # Leukocytosis - as above # Hypokalemia - repleting aggressively on protocol- 3.6 this am # proph - lovenox # diet - tolerating PO # dispo - > 2MN as requires ongoing care for Kandi I have discussed case with RN - will wean oxygen as suspect decreased sats 2/2 abd pain Subjective: pain iproved - denies SOB Objective: Vital Signs Temp Pulse Resp BP Pulse Ox 36.7 C 76 20 111/74 95 05/27/17 12:00 05/27/17 12:00 05/27/17 12:00 05/27/17 12:00 05/27/17 12:00 Laboratory Results 05/27/17 05:10 05/27/17 05:10 05/26/17 05/27/17 05/28/17 05:59 05:59 05:59 Intake Total 4185 3280.8 Output Total 4125 2630 Balance 60 650.8 - Physical Exam Constitutional: appears nourished Eyes: anicteric sclera Ears, Nose, Mouth, Throat: moist mucous membranes Cardiovascular: regular rate and rhythym Respiratory: no respiratory distress, no rales or rhonchi Gastrointestinal: normoactive bowel sounds, soft, non-tender abdomen Genitourinary: no bladder fullness Skin: warm Musculoskeletal: No asymmetric calves Neurologic: AAOx3 Psychiatric: interacting appropriately, not anxious Lymph, Heme, Immunologic: no cervical LAD ICD10 Worksheet Patient Problems: Problems Problem Status Onset Perirectal abscess Acute
--- NOTE | 2017-05-27 15:39 | ASMTCMCOM ---
CM Note CM Note Notes: Pt will likely remain inpt for at least one more week. Tentative plan is to get stem cell transplant after DC. It is u nclear if pt will keep PICC line at DC. C/M will follow for DC needs. Date Signed: 05/27/2017 03:39 PM Electronically Signed By:Kristy Adair LCSW
[2017-05-27] MEDS: OXYCODONE/APAP 5/325 TAB PO PRN (15:40)
--- NOTE | 2017-05-27 15:41 | ASMTCMCOM ---
CM Note CM Note Notes: Please ignore previous note. It was wriiten on wrong patient. It should be for pt [id number]. Date Signed: 05/27/2017 03:40 PM Electronically Signed By:Kristy Adair LCSW
--- NOTE | 2017-05-27 17:28 | PCMIDPN ---
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 Currently covering with ceftriaxone and Flagyl. He feels better today. Plan to continue this antibiotic course for 2-4 weeks total. Plan: 1. Continue both ceftriaxone and Flagyl. 2. Continue wound care. 3. Follow clinical course. Subjective: Patient is resting in his chair in the hospital room. He states that he feels much better today. Had a wound changed earlier which went well. No fevers or chills. Objective: Ceftriaxone # 7 Flagyl # 6 Vital Signs Temp Pulse Resp BP Pulse Ox 36.8 C 62 16 104/72 94 05/27/17 16:00 05/27/17 16:00 05/27/17 16:00 05/27/17 16:00 05/27/17 16:00 Laboratory Results 05/27/17 05:10 05/27/17 05:10 05/26/17 05/27/17 05/28/17 05:59 05:59 05:59 Intake Total 4185 3280.8 Output Total 4125 2630 Balance 60 650.8 - Physical Exam General Appearance: WD/WN, alert, no apparent distress, non-toxic Respiratory: lungs clear, No respiratory distress Cardiac/Chest: regular rate, rhythm, No tachycardia Skin: normal color, warm/dry, No rash Neuro/Psych: alert, normal mood/affect, oriented x 3 ICD10 Worksheet Patient Problems: Problems Problem Status Onset Perirectal abscess Acute
[2017-05-27 21:11] LABS: POTASSIUM 3.7 mEq/L (3.5-5.2)
[2017-05-28 05:19] LABS: HEMATOCRIT 24.7 % (40.0-51.0); HEMOGLOBIN 7.5 g/dL (13.7-17.5); MEAN CELL HEMOGLOBIN 32.9 pg (27.9-34.1); MEAN CELL HEMOGLOBIN CONCENTR. 30.4 g/dL (32.4-36.7); MEAN CELL VOLUME 108.3 fL (81.5-99.8); RED BLOOD CELL COUNT 2.28 10^6/uL (4.40-6.38); RED CELL DISTRIBUTION WIDTH 13.9 % (11.5-15.2)
[2017-05-28] MEDS ORDERED: HYDROmorphONE/DILAUDID 1 MG/ML INJ IVP PRN (08:40)
[2017-05-28] MEDS: DOCUSATE SODIUM 100 MG CAP PO SCH ×2 (08:55→21:41)
[2017-05-28] MEDS: ENOXAPARIN 40 MG/0.4 ML SYR SC SCH (08:56)
[2017-05-28] MEDS: cefTRIAXone 2 GM in D5W 50 ML IV SCH (08:56)
--- NOTE | 2017-05-28 09:04 | SOAPPROG ---
SOAP Progress Note Assessment/Plan: Assessment: 62-year-old male status post multiple wound debridements, diverting colostomy for Forunier's gangrene, incision and drainage of perineal infection. Tolerating diet, pain well control improving but still significant pain upon dressing changes. Physical exam Alert, in chair, tearful regarding overall situation abdomen nondistended, ostomy functioning, very soft to palpation, nontender Plan: To OR early next week for further debridement, partial closure and possible VAC placement continue wound care saw pt with Dr Weems 05/21/17 15:22 05/28/17 09:01 Objective: Vital Signs Temp Pulse Resp BP Pulse Ox 37.1 C 67 16 122/65 H 90 L 05/28/17 08:00 05/28/17 08:00 05/28/17 08:00 05/28/17 08:00 05/28/17 08:00 Laboratory Results 05/28/17 04:39 05/27/17 20:35 05/27/17 05/28/17 05/29/17 05:59 05:59 05:59 Intake Total 3280.8 1844 Output Total 2630 1900 Balance 650.8 -56 ICD10 Worksheet Patient Problems: Problems Problem Status Onset Perirectal abscess Acute
[2017-05-28] MEDS: LORazepam 2 MG/ML INJ IVP PRN (09:07)
--- NOTE | 2017-05-28 09:08 | SOAPPROG ---
SOAP Progress Note Assessment/Plan: Assessment: PT WITH BAD PERIRECTAL INFECTION, POSSIBLY INVOLVING SCROTUM RISKS AND OPTIONS FULLY DISCUSSED NONDIABETIC BUT WITH CML BUT NO CHEMO Plan:OR I &D 05/17/17 21:30 05/28/17 09:06 AFEBRILE/ WOUND CLEANING UP/ OSTOMY OK/ PLAN OR NEXT WEEK FOR FURTHER DEBRIDEMENT NAD/ OR POSSIBLE CLOSURE Objective: Vital Signs Temp Pulse Resp BP Pulse Ox 37.1 C 67 16 122/65 H 90 L 05/28/17 08:00 05/28/17 08:00 05/28/17 08:00 05/28/17 08:00 05/28/17 08:00 Laboratory Results 05/28/17 04:39 05/27/17 20:35 05/27/17 05/28/17 05/29/17 05:59 05:59 05:59 Intake Total 3280.8 1844 Output Total 2630 1900 Balance 650.8 -56 ICD10 Worksheet Patient Problems: Problems Problem Status Onset Perirectal abscess Acute - ICD10 Problem Qualifiers (1) Perirectal abscess
--- NOTE | 2017-05-28 09:28 | PCMIDPN ---
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 E coli and proteus predominate pathogens but suspect anaerobes as well as infection likely originated pj-rectally. Significant improvement in appearance of the right hemiscrotum wound and gluteal/perirectal wound. Almost complete resolution of induration. No purulence, healthy-appearing tissue. Only with low-grade fevers. WBC not interpretable due to CLL --continue ceftriaxone + flagyl, no antibiotic changes --discuss with surgery 1 small area distal scrotum of skin breakdown with questionable fluctuance # Hypogammaglobulinemia associated with underlying CLL: Status post IVIG replacement on 05/18/2017 - repeat IgG 700 antibiotics, # 10 Ceftriaxone 2 g IV daily # 8 Metronidazole 500 mg IV Q 8 #7 Microbiology 05/17 blood cultures (2) NGTD 05/17 surgical cultures: 2 species of E coli and Proteus (RJ to ceftriaxone < 1 for all organisms) Subjective: No specific events overnight. Ostomy is working well Objective: Vital Signs Temp Pulse Resp BP Pulse Ox 37.1 C 67 16 122/65 H 90 L 05/28/17 08:00 05/28/17 08:00 05/28/17 08:00 05/28/17 08:00 05/28/17 08:00 Laboratory Results 05/28/17 04:39 05/27/17 20:35 05/27/17 05/28/17 05/29/17 05:59 05:59 05:59 Intake Total 3280.8 1844 Output Total 2630 1900 Balance 650.8 -56 T-max 37.8 degrees 05/25/2027 - Physical Exam General Appearance: alert, other (Mild distress due to discomfort of dressing change) EENT: No scleral icterus Respiratory: No accessory muscle use Male Genitalia: other (Right hemiscrotum wound with granulation tissue, grossly appear smaller than my exam 4 days ago; large gluteal/perirectal wound with healthy appearing tissue.) Skin: No rash Neuro/Psych: alert, normal mood/affect, oriented x 3 ICD10 Worksheet Patient Problems: Problems Problem Status Onset Perirectal abscess Acute
--- NOTE | 2017-05-28 09:39 | HOSPPROG ---
Hospitalist Progress Note Assessment/Plan: DIAGNOSES: -Fornier's gangrene status post multiple debridements, with some rectal perforation noted, now s/p diverting colostomy -CLL with expected associated leukocytosis and anemia -hypogammaglobulinemia related to his CLL, status post replacement therapy PLANS: -continue current antibiotics -continue current wound management -wound care nurse will review the wound findings with Dr. Weems; the new or smaller wound on the scrotum will not be covered by the dressing so will be visible to Dr. Weems when he comes by -continue routine management of colostomy -pain management -DVT prophylaxis as ordered He continues to make slow but good progress. I expect that we are going to have to possibly explore the small wound on the scrotum described below but will review this with Dr. Weems. Otherwise no changes in treatment are necessary at this time. I have reviewed the case in detail with Dr. Elida Jacob and will review with Dr. Ta Weems today SUBJECTIVE: He is satisfied with pain control so far needing higher doses of pain medicine during dressing changes Eating liquid diet well no nausea No chills or sweats Has hip girdle/pelvic weakness but strength otherwise good, trouble getting up to his feet but once he is on his feet can walk well OBJECTIVE Vitals reviewed: No fever since May 23, otherwise stable vitals Exam: alert oriented skin warm dry color ok resps not labored lungs clear BSs heart regular abd soft nondistended nontender, bowel sounds present limbs warm, no edema I examined wounds today with the wound care nurse. The main scrotal wound and the gluteal wounds both are in very good condition with granulation and without necrosis or significant drainage. There is no odor. There is a recently developed smaller wound on the inferior midline aspect of the scrotum. This has a small area of slightly soft yellowish tissue, with a slight sensation of purulence but no drainage, minimal tenderness, no erythema, and no significant surrounding edema compared to the other local tissues. According to the wound care nurse to sounds like this looks like it may be progressed a little bit from the last dressing change. iv site ok Objective: Vital Signs Temp Pulse Resp BP Pulse Ox 37.1 C 67 16 122/65 H 90 L 05/28/17 08:00 05/28/17 08:00 05/28/17 08:00 05/28/17 08:00 05/28/17 08:00 Laboratory Results 05/28/17 04:39 05/27/17 20:35 05/27/17 05/28/17 05/29/17 06:59 06:59 06:59 Intake Total 3280.8 1844 Output Total 2630 1900 Balance 650.8 -56 - Time Spent With Patient Time Spent with Patient: greater than 35 minutes Time Spent with Patient: Greater than 35 minutes spent on this patients care, greater than 50% of time spent counseling, educating, and coordinating care regarding the above mentioned plan. ICD10 Worksheet Patient Problems: Problems Problem Status Onset Perirectal abscess Acute
--- NOTE | 2017-05-28 14:10 | WOCRNPDOC ---
WOCRN Advanced Assessment Note - Skin Integrity Problem, Advanced Assess Perianal Surgical Wound/Incision Dressing Type: ABD Pad, Hydrofera Blue (classic ) Dressing Description: Intact Exudate Amount: Minimal Exudate Color: Reddish/Yellow Exudate Characteristic(s): Serosanguinous Integumentary Issue Intervention: Dressing Changed Katia Wound Tissue: Swollen (mild), Intact Katia Wound Swelling: Mild Wound Bed Constitution: Granulation Tissue, Red/[place] - Non Granular Tissue Site Odor: None Skin Integrity Problem Comment: Wound improving, granulation tissue noted in aspects I could visualize, no apparent necrosis or purulence. Mild periwound induration. Plan is for nursing to change dressing again on Wednesday 05/30. Hydrofera Blue dressing is working well; wound re-packed using Hydrofera Blue classic, moistened w/ NS, and cut into spiral shape for easier packing. Wound care will continue to follow, rounding on patient again on Thursday 05/31. Scrotum Surgical Wound/Incision Dressing Type: ABD Pad, Hydrofera Blue (tunnel and classic) Dressing Description: Intact Exudate Amount: Minimal Exudate Color: Reddish/Yellow Exudate Characteristic(s): Serosanguinous Integumentary Issue Intervention: Dressing Changed Katia Wound Tissue: Intact Katia Wound Swelling: Mild Wound Bed Color: Red Wound Bed Constitution: Granulation Tissue, Red/[place] - Non Granular Tissue, Tunneling (4cm at 12 o'clock) Skin Integrity Problem Comment: Wound significantly improved since previous assessment. Granulation tissue noted at wound opening, no purulence or necrosis observed. There remains a tunnel at 12 o'clock, which was re-packed w/ Hydrofera Blue tunnel dressing (cut in half lengthwise). There is a discrete, sloughy area distal to this wound on the anterior aspect of the R scrotum that is slightly fluctuant. Unsure if this is continuous w/ the wound above; I was unable to probe down to this area, and am concerned this could be a separate/ newer wound. Notified Sreedhar Fish surgical PA of this finding. Periwound swelling is significantly decreased, and induration is these tissues is resolving. Next dressing change will be Wednesday 05/30.
[2017-05-28] MEDS: ACETAMINOPHEN 325 MG TAB PO PRN (16:22)
[2017-05-28] MEDS ORDERED: POTASSIUM CL 10 MEQ TAB PO ONE (20:35)
[2017-05-28] MEDS: TEMAZEPAM 15 MG CAP PO PRN (21:44)
[2017-05-29] MEDS: ONDANSETRON 4 MG/2 ML VIAL IVP PRN (03:31)
[2017-05-29] MEDS: cefTRIAXone 2 GM in D5W 50 ML IV SCH (09:07)
[2017-05-29] MEDS: ONDANSETRON DISINTEGRATING 4 MG TAB PO PRN (09:07)
[2017-05-29] MEDS: ACETAMINOPHEN 325 MG TAB PO PRN (09:11)
[2017-05-29] MEDS: ENOXAPARIN 40 MG/0.4 ML SYR SC SCH (09:13)
[2017-05-29] MEDS: DOCUSATE SODIUM 100 MG CAP PO SCH ×2 (09:34→20:45)
--- NOTE | 2017-05-29 10:15 | HOSPPROG ---
Hospitalist Progress Note Assessment/Plan: DIAGNOSES: -Fornier's gangrene status post multiple debridements, with some rectal perforation noted, now s/p diverting colostomy -CLL with expected associated leukocytosis and anemia -hypogammaglobulinemia related to his CLL, status post replacement therapy -headache and nausea last night, resolved He did have a slight fever overnight last night but no typical symptoms with that and afebrile since. This may potentially have been a cause for his headache and nausea last evening. Otherwise he appears to be doing reasonably well today with little change PLANS: -continue current antibiotics; follow closely for any other signs of fever -continue current wound management -continue routine management of colostomy -pain management -DVT prophylaxis as ordered SUBJECTIVE: No abdominal pain, no problems with ostomy, good ostomy output Still minimal pain when not moving at his wound sites Last night had a headache with nausea, otherwise eating liquid diet well no nausea No chills or sweats No overall change in his strength or mobility OBJECTIVE Vitals reviewed: Temperature 38.5 yesterday afternoon, afebrile since then no other changes vital signs Exam: alert oriented skin warm dry color ok resps not labored lungs clear BSs heart regular abd soft nondistended nontender, bowel sounds present Ostomy site looks good, appliances appropriately attached and functioning, normal output limbs warm, no edema iv site ok Objective: Vital Signs Temp Pulse Resp BP Pulse Ox 37.4 C 83 18 126/74 H 91 L 05/29/17 07:41 05/29/17 07:41 05/29/17 07:41 05/29/17 07:41 05/29/17 07:41 Laboratory Results 05/28/17 04:39 05/28/17 18:55 05/28/17 05/29/17 05/30/17 06:59 06:59 06:59 Intake Total 1844 1192.6 350 Output Total 7397 4732 525 Balance -56 -1232.4 -175 ICD10 Worksheet Patient Problems: Problems Problem Status Onset Perirectal abscess Acute
--- NOTE | 2017-05-29 11:23 | SOAPPROG ---
SOAP Progress Note Assessment/Plan: Assessment: 1. Kandi's gangrene: Open wounds. on Ceftiaxone and metronidazole. He grew out e. coli and proteus. He is resting comfortably, did have an episode of emesis last night, low grade fever. Surgery with Dr. Ta Weems on 24 MAY 2017 for additional debridement and diverting colostomy formation. 2. CLL: not requiring intervention 3. Hypogammaglobulinemia: Secondary to the CLL: IgG from 24 MAY 2017 was adequate at 700. Recheck on 31 MAY 2017 Plan: Post op care per Dr. Weems Appreciate ID input Check IgG on 31 MAY 2017 05/29/17 11:21 Subjective: Feels ok this am Objective: Vital Signs Temp Pulse Resp BP Pulse Ox 99.5 F 76 18 129/79 H 93 05/29/17 10:20 05/29/17 10:20 05/29/17 10:20 05/29/17 10:20 05/29/17 10:20 Laboratory Results 05/28/17 04:39 05/28/17 18:55 05/28/17 05/29/17 05/30/17 05:59 05:59 05:59 Intake Total 1844 1192.6 350 Output Total 1900 2325 525 Balance -56 -1232.4 -175 ICD10 Worksheet Patient Problems: Problems Problem Status Onset Perirectal abscess Acute
--- NOTE | 2017-05-29 11:32 | SOAPPROG ---
SOAP Progress Note Assessment/Plan: Assessment/Plan: - wounds look good, no new worrisome findings - abdomen is soft, stoma functioning well. Had some issues with food last night but has tolerated breakfast today - Plan for takeback to OR this coming week for at least partial closure 05/29/17 11:31 Subjective: Had some pain overnight Objective: Vital Signs Temp Pulse Resp BP Pulse Ox 37.5 C 76 18 129/79 H 93 05/29/17 10:20 05/29/17 10:20 05/29/17 10:20 05/29/17 10:20 05/29/17 10:20 Laboratory Results 05/28/17 04:39 05/28/17 18:55 05/28/17 05/29/17 05/30/17 05:59 05:59 05:59 Intake Total 1844 1192.6 350 Output Total 5077 6028 525 Balance -56 -1232.4 -175 ICD10 Worksheet Patient Problems: Problems Problem Status Onset Perirectal abscess Acute
--- NOTE | 2017-05-29 13:36 | ASMTCMCOM ---
CM Note CM Note Notes: Pt having multiple episodes of vomitting today per RN and is not able to discuss DC plan. Pt will need wound care at DC. It is unclear how extensive his care simone be and if he will require a SNF at first. C/M will continue to follow. Date Signed: 05/29/2017 01:35 PM Electronically Signed By:Kristy Adair LCSW
[2017-05-29] MEDS ORDERED: PROMETHAZINE HCL 25 MG/ML INJ IVP PRN (14:00)
[2017-05-29 16:06] LABS: POTASSIUM 3.1 mEq/L (3.5-5.2)
[2017-05-29] MEDS: POTASSIUM Cl (KCl) 100 ML IV SCH ×3 (19:21→23:02)
[2017-05-30] MEDS: POTASSIUM Cl (KCl) 100 ML IV SCH (01:36)
[2017-05-30 05:34] LABS: ABSOLUTE NRBC COUNT 0.02 10^3/uL (0-0.01); ADD MORPH? NO; ATYPICAL LYMPHOCYTE FLAG 0 (0-99); FRAGMENT RBC FLAG 0 (0-99); HEMATOCRIT 25.2 % (40.0-51.0); LEFT SHIFT FLG 10 (0-99); LIPEMIA HEMOLYSIS FLAG 80 (0-99); MEAN CELL HEMOGLOBIN CONCENTR. 31.7 g/dL (32.4-36.7); MEAN CELL VOLUME 107.2 fL (81.5-99.8); PLATELET CLUMPS FLAG 10 (0-99); PLATELET COUNT 240 10^3/uL (150-400); RED BLOOD CELL COUNT 2.35 10^6/uL (4.40-6.38); RED CELL DISTRIBUTION WIDTH 13.6 % (11.5-15.2)
[2017-05-30 05:42] LABS: ADD DIFF? YES; ADD SCAN? NO
[2017-05-30 05:57] LABS: ANION GAP 7 mEq/L (8-16); CALCIUM 8.2 mg/dL (8.5-10.4); CARBON DIOXIDE 28 mEq/l (22-31); CHLORIDE 105 mEq/L (97-110); CREATININE 0.9 mg/dL (0.7-1.3); GLOMERULAR FILTRATION RATE > 60; GLUCOSE 134 mg/dL (70-100); POTASSIUM 3.1 mEq/L (3.5-5.2); SODIUM 140 mEq/L (134-144)
[2017-05-30 07:22] LABS: PLATELET ESTIMATE ADEQUATE (ADEQ)
[2017-05-30 07:23] LABS: MACROCYTES 1+; POLYCHROMASIA 1+; SMUDGE CELLS 2+
[2017-05-30] MEDS ORDERED: POTASSIUM Cl (KCl) 100 ML IV SCH ×2 (07:30→20:00)
[2017-05-30] MEDS: cefTRIAXone 2 GM in D5W 50 ML IV SCH (08:17)
[2017-05-30] MEDS: ENOXAPARIN 40 MG/0.4 ML SYR SC SCH (08:18)
[2017-05-30] MEDS: DOCUSATE SODIUM 100 MG CAP PO SCH ×2 (08:48→20:25)
[2017-05-30] MEDS: POTASSIUM Cl (KCl) 10 MEQ in NS 100 ML IV SCH ×4 (08:58→17:11)
--- NOTE | 2017-05-30 12:04 | HOSPPROG ---
Hospitalist Progress Note Assessment/Plan: DIAGNOSES: -Fornier's gangrene status post multiple debridements, with some rectal perforation noted, now s/p diverting colostomy -CLL with expected associated leukocytosis and anemia -hypogammaglobulinemia related to his CLL, status post replacement therapy -headache and nausea last night, resolved PLANS: -continue current antibiotics; follow closely for any other signs of fever -continue current wound management -continue routine management of colostomy -pain management -DVT prophylaxis as ordered -I asked pt and nurse to at least begin some teaching/familiarizing with ostomy/ appliance care SUBJECTIVE: No abdominal pain, no problems with ostomy, good ostomy output Still minimal pain when not moving at his wound sites Much better overnight and today so far with no nausea and better p.o. intake No chills or sweats Finds a little bit easier to get up and around now OBJECTIVE Vitals reviewed: No fever for 2 days now, otherwise stable Exam: alert oriented skin warm dry color ok resps not labored lungs clear BSs heart regular abd soft nondistended nontender, bowel sounds present Ostomy site looks good, appliances appropriately attached and functioning, normal output limbs warm, no edema iv site ok Objective: Vital Signs Temp Pulse Resp BP Pulse Ox 37.0 C 66 16 132/70 H 96 05/30/17 10:00 05/30/17 10:00 05/30/17 10:00 05/30/17 10:00 05/30/17 10:00 Laboratory Results 05/30/17 04:54 05/30/17 04:54 05/29/17 05/30/17 05/31/17 06:59 06:59 06:59 Intake Total 1192.6 3205.6 Output Total 8786 2799 Balance -1232.4 565.6 ICD10 Worksheet Patient Problems: Problems Problem Status Onset Perirectal abscess Acute
--- NOTE | 2017-05-30 15:55 | SOAPPROG ---
SOAP Progress Note Assessment/Plan: Assessment/Plan: - tolerating clears, hasnt vomited since. - wants to cont clears through the night, ok with me - abdomen is soft, stoma is functioning appropriately. 05/29/17 11:31 05/30/17 15:55 Subjective: No nausea since backing down to clears Objective: Vital Signs Temp Pulse Resp BP Pulse Ox 37.0 C 67 16 141/79 H 97 05/30/17 10:00 05/30/17 13:57 05/30/17 13:57 05/30/17 13:57 05/30/17 13:57 Laboratory Results 05/30/17 04:54 05/30/17 04:54 05/29/17 05/30/17 05/31/17 05:59 05:59 05:59 Intake Total 1192.6 3205.6 Output Total 2425 2640 950 Balance -1232.4 565.6 -950 ICD10 Worksheet Patient Problems: Problems Problem Status Onset Perirectal abscess Acute
[2017-05-30] MEDS: ACETAMINOPHEN 325 MG TAB PO PRN (16:39)
[2017-05-30 18:47] LABS: POTASSIUM 3.2 mEq/L (3.5-5.2)
--- NOTE | 2017-05-30 19:20 | PCMIDPN ---
Assessment/Plan: Assessment/Plan: 1. Polymicrobial necrotizing perineal/scrotal infection : -Patient with underlying CLL - s/p debridement x 4 and diverting colostomy - Currently on Ceftriaxone and Flagyl - check blood cx now given spiking temps. - for wound exploration possibly tomorrow with dressing change. - discussed plan of care at length with patient,family - care coordinated with Rn. 2. Hypogammaglobulinemia: -s/p IVIG Meds Ceftriaxone 2g daily-05/21/17 Flagyl 500mg q8- 05/21/17 s/p vanco, zosyn Subjective: spiking temps today. tender around wound but not more than previous days. dressing changed two days ago. denies sob, having some mild abd pain. colostomy noted. no other complaints Objective: Vital Signs Temp Pulse Resp BP Pulse Ox 37.9 C 64 16 151/75 H 98 05/30/17 18:24 05/30/17 18:00 05/30/17 18:00 05/30/17 18:00 05/30/17 18:00 Laboratory Results 05/30/17 04:54 05/30/17 18:30 05/29/17 05/30/17 05/31/17 05:59 05:59 05:59 Intake Total 1192.6 3205.6 1635 Output Total 2425 2640 1700 Balance -1232.4 565.6 -65 - Physical Exam General Appearance: alert, no apparent distress Respiratory: lungs clear Cardiac/Chest: regular rate, rhythm Extremities: No swelling Abdomen: normal bowel sounds, non-tender, soft, other (colostomy), No distended Male Genitalia: other (hydrafera blue noted on scrotum , perirectal region. indurated tender. ) - Time Spent With Patient Time Spent with Patient: greater than 35 minutes Time Spent with Patient: Greater than 35 minutes spent on this patients care, greater than 50% of time spent counseling, educating, and coordinating care regarding the above mentioned plan. ICD10 Worksheet Patient Problems: Problems Problem Status Onset Perirectal abscess Acute
[2017-05-30] MEDS: POTASSIUM Cl (KCl) 50 ML IV SCH (20:24)
[2017-05-31] MEDS: POTASSIUM Cl (KCl) 50 ML IV SCH ×3 (00:24→04:28)
--- NOTE | 2017-05-31 05:44 | GOP ---
[f rep st] OPERATIVE REPORT DATE OF OPERATION: 05/17/2017 SURGEON: Ta Weems MD PREOPERATIVE DIAGNOSIS: Perirectal abscess. POSTOPERATIVE DIAGNOSIS: Kandi gangrene. PROCEDURE PERFORMED: Incision and drainage of perirectal abscess with radical debridement of perinea l infection and skeletonization of the right testicle. FINDINGS: The patient was found to have extensive necrotizing infection of the right side of the per ineum extending all the way up through the scrotum to the base of the penis. No definite rectal fist gabi could be identified. DESCRIPTION OF PROCEDURE: The patient was taken to the operating room where he received satisfactory general endotracheal anesthesia. He was placed in the lithotomy position, prepped and draped in usu al sterile fashion. Incision was made in the fluctuant area in the right buttock. This was after an aspiration was done revealing purulent fluid. Incision encountered severe necrotizing infection. S kin and subcu were radically debrided sharply, all the way up from the perirectal area, up into the s crotum. As much skin as possible was salvaged, but all the subcutaneous tissue was excised down to t he fascial level. The right testicle was freed up and skeletonized, preserving the cord structures a nd the testicle, which appeared to be still viable. The wound was then partially closed with some in terrupted 3-0 Prolene sutures to cover the testicle, but the remaining areas were packed with Betadin e-soaked gauze. He tolerated the procedure well, was taken to the recovery room in satisfactory cond ition. There were no complications. /[id number]/MODL
[2017-05-31] MEDS ORDERED: BUPIVACAINE 0.5% 30 ML SDV ONE (07:43)
[2017-05-31 07:47] LABS: ABSOLUTE NRBC COUNT 0.02 10^3/uL (0-0.01); ADD MORPH? NO; ATYPICAL LYMPHOCYTE FLAG 0 (0-99); FRAGMENT RBC FLAG 0 (0-99); HEMATOCRIT 24.2 % (40.0-51.0); HEMOGLOBIN 7.7 g/dL (13.7-17.5); LEFT SHIFT FLG 10 (0-99); LIPEMIA HEMOLYSIS FLAG 80 (0-99); MEAN CELL HEMOGLOBIN 33.3 pg (27.9-34.1); MEAN CELL HEMOGLOBIN CONCENTR. 31.8 g/dL (32.4-36.7); MEAN CELL VOLUME 104.8 fL (81.5-99.8); MEAN PLATELET VOLUME 11.9 fL (8.7-11.7); PLATELET CLUMPS FLAG 0 (0-99); PLATELET COUNT 222 10^3/uL (150-400); RED BLOOD CELL COUNT 2.31 10^6/uL (4.40-6.38); RED CELL DISTRIBUTION WIDTH 13.8 % (11.5-15.2)
[2017-05-31 07:56] LABS: ADD DIFF? YES; ADD SCAN? NO
[2017-05-31 08:04] LABS: ANION GAP 8 mEq/L (8-16); CALCIUM 8.2 mg/dL (8.5-10.4); CARBON DIOXIDE 28 mEq/l (22-31); CHLORIDE 104 mEq/L (97-110); CREATININE 0.9 mg/dL (0.7-1.3); GLOMERULAR FILTRATION RATE > 60; GLUCOSE 109 mg/dL (70-100); POTASSIUM 3.6 mEq/L (3.5-5.2); SODIUM 140 mEq/L (134-144)
[2017-05-31] MEDS ORDERED: MIDAZOLAM 2 MG/2 ML VIAL ONE (08:48)
--- NOTE | 2017-05-31 08:48 | PDANEPAE ---
ANE History of Present Illness Perirectal abscess ANE Past Medical History - Cardiovascular History Hx Hypertension: Yes Hx Arrhythmias: No Hx Chest Pain: No Hx Coronary Artery / Peripheral Vascular Disease: No Hx CHF / Valvular Disease: No Hx Palpitations: No - Pulmonary History Hx COPD: No Hx Asthma/Reactive Airway Disease: No Hx Recent Upper Respiratory Infection: No Hx Oxygen in Use at Home: No Hx Sleep Apnea: No Sleep Apnea Screening Result - Last Documented: Positive - Endocrine History Hx Diabetes: No Hypothyroid: No Hyperthyroid: No Obesity: no - Renal History Renal History Comment: arf - Liver History Hx Hepatic Disorders: No - Cancer History Hx Cancer: Yes Cancer History Comment: CLL, s/p chemo in 2013. - GI History GERD: no Hx Gastrointestinal Disorders: No - Chronic Pain History Chronic Pain: No ANE Review of Systems Review of Systems: - Exercise capacity METS (RN): 4 METS ANE Patient History - Allergies Allergies/Adverse Reactions: (seasonal allergies) Allergy (Uncoded 05/17/17 16:32) - Home Medications Home Medications: Hydrochlorothiazide [HCTZ (*)] 25 mg PO DAILY 05/17/17 [Last Taken 05/16/17] Loratadine [Claritin 10 mg] 10 mg PO DAILY PRN 05/17/17 [Last Taken Unknown] Motrin (*) 800 mg PO DAILY PRN 05/17/17 [Last Taken 05/17/17] Potassium Chloride [Klor-Con M10] 10 meq PO DAILY 05/17/17 [Last Taken 05/16/17] - NPO status NPO Since - Liquids (Date): 05/30/17 NPO Since - Liquids (Time): 00:01 NPO Since - Solids (Date): 05/30/17 NPO Since - Solids (Time): 00:01 - Anes Hx Anes Hx: no prior problems - Smoking Hx Smoking Status: Never smoked Marijuana use: No - Alcohol Use Alcohol Use: None - Family Anes Hx Family Anes Hx: none ANE Labs/Vital Signs - Labs Result Diagrams: 05/31/17 07:25 05/31/17 07:25 - Vital Signs Blood Pressure: 147/80 Heart Rate: 65 Respiratory Rate: 16 O2 Sat (%): 92 Height: 193.04 cm Weight: 117.934 kg ANE Physical Exam - Airway Neck exam: FROM Mallampati Score: Class 1 Mouth exam: normal dental/mouth exam - Pulmonary Pulmonary: no respiratory distress, no rales or rhonchi - Cardiovascular Cardiovascular: regular rate and rhythym, no murmur, rub, or gallop - ASA Status ASA Status: III ANE Anesthesia Plan Anesthesia Plan: GA w LMA
[2017-05-31 08:58] LABS: MACROCYTES 1+; PLATELET ESTIMATE ADEQUATE (ADEQ); POLYCHROMASIA 1+; SMUDGE CELLS 2+
[2017-05-31] MEDS ORDERED: fentaNYL 100 MCG/2 ML INJ ONE ×2 (09:09)
[2017-05-31] MEDS ORDERED: PROPOFOL/EMULSION 500 MG/50 ML BOTTLE IV ONE (09:09)
[2017-05-31] MEDS ORDERED: PROPOFOL 200 MG/20 ML VIAL ONE (09:09)
[2017-05-31] MEDS ORDERED: epHEDrine SULFATE 10 MG/ML SYR ONE (09:19)
--- NOTE | 2017-05-31 09:19 | SOAPPROG ---
SOAP Progress Note Assessment/Plan: Assessment: PT WITH BAD PERIRECTAL INFECTION, POSSIBLY INVOLVING SCROTUM RISKS AND OPTIONS FULLY DISCUSSED NONDIABETIC BUT WITH CML BUT NO CHEMO Plan:OR I &D 05/17/17 21:30 05/28/17 09:06 AFEBRILE/ WOUND CLEANING UP/ OSTOMY OK/ PLAN OR NEXT WEEK FOR FURTHER DEBRIDEMENT NAD/ OR POSSIBLE CLOSURE 05/31/17 09:18 AFEBRILE/ PAIN CONTROL GOOD/ PLAN IS DRESSING CHANGE IN OR/ POSSIBLE PARTIAL CLOSURE AND/OR WOUND VAC RISKS AND OPTIONS FULLY DISCUSSED Objective: Vital Signs Temp Pulse Resp BP Pulse Ox 36.7 C 65 16 147/80 H 92 05/31/17 08:01 05/31/17 08:47 05/31/17 08:47 05/31/17 08:47 05/31/17 08:47 Laboratory Results 05/31/17 07:25 05/31/17 07:25 05/30/17 05/31/17 06/01/17 05:59 05:59 05:59 Intake Total 3205.6 2984 Output Total 2640 2775 Balance 565.6 209 ICD10 Worksheet Patient Problems: Problems Problem Status Onset Perirectal abscess Acute - ICD10 Problem Qualifiers (1) Perirectal abscess
[2017-05-31] MEDS: cefTRIAXone 2 GM in D5W 50 ML IV SCH (09:21)
[2017-05-31] MEDS ORDERED: METOCLOPRAMIDE 10 MG/2 ML VIAL ONE (09:28)
[2017-05-31] MEDS ORDERED: POTASSIUM Cl (KCl) 100 ML IV SCH (09:30)
[2017-05-31] MEDS ORDERED: THROMBIN (BOVINE) 5,000 UNIT VIAL TP ONE (09:44)
[2017-05-31] MEDS ORDERED: MIDAZOLAM 2 MG/2 ML VIAL IVP ONE (09:52)
[2017-05-31] MEDS ORDERED: LIDOCAINE 2% 5 ML SDV ONE (09:59)
[2017-05-31] MEDS ORDERED: ONDANSETRON 4 MG/2 ML VIAL ONE ×2 (10:00)
[2017-05-31] MEDS ORDERED: fentaNYL 100 MCG/2 ML INJ IVP PRN (10:01)
[2017-05-31] MEDS ORDERED: HYDROmorphONE/DILAUDID 1 MG/ML INJ IVP PRN (10:01)
[2017-05-31] MEDS ORDERED: OXYCODONE/APAP 5/325 TAB PO PRN (10:01)
[2017-05-31] MEDS ORDERED: HYDROCODONE/APAP 5/325 TAB PO PRN (10:01)
[2017-05-31] MEDS ORDERED: NALOXONE HCL 0.4 MG/ML INJ IVP PRN (10:01)
[2017-05-31] MEDS ORDERED: ONDANSETRON 4 MG/2 ML VIAL IVP PRN (10:01)
--- NOTE | 2017-05-31 10:07 | POSTOPPROG ---
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
[2017-05-31] MEDS: POTASSIUM Cl (KCl) 10 MEQ in NS 100 ML IV SCH ×4 (11:04→16:23)
[2017-05-31] MEDS: DOCUSATE SODIUM 100 MG CAP PO SCH ×2 (11:08→21:56)
[2017-05-31] MEDS: ENOXAPARIN 40 MG/0.4 ML SYR SC SCH (12:39)
--- NOTE | 2017-05-31 13:11 | SOAPPROG ---
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 Dr. Ta Weems on 31 MAY 2017 for additional debridement. Post op care per Dr. Weems. Followed by ID. 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 Probably retreat at least next week. Recheck today is pending Subjective: Little sleepy but denies any acute problems. Objective: Vital Signs Temp Pulse Resp BP Pulse Ox 37.2 C 80 16 124/72 H 97 05/31/17 12:00 05/31/17 12:00 05/31/17 12:00 05/31/17 12:00 05/31/17 12:00 Laboratory Results 05/31/17 07:25 05/31/17 07:25 05/30/17 05/31/17 06/01/17 05:59 05:59 05:59 Intake Total 3205.6 2984 Output Total 2640 2775 Balance 565.6 209 Physical Exam - Physical Exam General Appearance: no apparent distress Respiratory: lungs clear Cardiac/Chest: regular rate, rhythm ICD10 Worksheet Patient Problems: Problems Problem Status Onset Perirectal abscess Acute
--- NOTE | 2017-05-31 13:21 | GOP ---
[f rep st] OPERATIVE REPORT DATE OF OPERATION: 05/31/2017 SURGEON: Ta Weems MD [facility] DIRECTOR: SRINIVAS Blanco ANESTHESIOLOGIST: Dr. Gomez. PREOPERATIVE DIAGNOSIS: Kandi's gangrene. POSTOPERATIVE DIAGNOSIS: Kandi's gangrene. PROCEDURE PERFORMED: Wound exploration, debridement and delayed primary closure. FINDINGS: The patient was found to have no retained abscess pockets and no major areas of necrotic s kin tissue. Small area in the base of the scrotum was excised but appeared to have adequate blood oro pply to the edges. The wound was granulating quite well. DESCRIPTION OF PROCEDURE: The patient was taken to the operating room, where he received satisfactor y general endotracheal anesthesia by Dr. Gomez, placed in the lithotomy position, prepped and draped in usual sterile fashion. The wound was explored. Any small areas of necrosis were debrided away, there was minimal necrotic tissue and no evidence of any communication to the anus, and no undrained pockets. The wound was irrigated and then closed for most places with interrupted 2-0 Prolene suture s. A [place] drain was brought out from the very bottom of the incision, up through the middle of th e scrotum. A 2nd [place] drain was brought out through the top of the scrotum and the bottom of the scrotum. These was also secured with Prolene sutures. The wound was infiltrated with 0.5% Marcaine and covered with some topical thrombin and dressed. He tolerated procedure quite well. Blood loss w as negligible. No complications. /[id number]/MODL
--- NOTE | 2017-05-31 13:21 | GOP ---
[f rep st] OPERATIVE REPORT PATIENT NAME: RORY ORNELAS DATE OF : DATE OF OPERATION: 05/18/2017 SURGEON: Ta Weems MD RESERVATIONS SPECIALIST: ARNOLD Blanco ANESTHESIA: Prashanth Urban MD PREOPERATIVE DIAGNOSIS: 1. Perirectal abscess. 2. Kandi's gangrene. 3. Chronic lymphocytic leukemia. POSTOPERATIVE DIAGNOSIS: 1. Perirectal abscess. 2. Kandi's gangrene. 3. Chronic lymphocytic leukemia. PROCEDURE PERFORMED: 1. Wound exploration with debridement. 2. Right spermatocelectomy. FINDINGS: Patient was found to have a viable testicle, had a 1.5 cm spermatocele, which appeared to be twisting, and was easily removed. He had some posterior necrosis, which was further debrided. ESTIMATED BLOOD LOSS: Less than 50 cc. DESCRIPTION OF PROCEDURE: Patient was taken to the operating room where he received satisfactory general endotracheal anesthesia by Dr. Mcintyre. He was placed in lithotomy position, prepped and draped in usual sterile fashion. All packing was removed. Wound was explored. Necrotic tissue was sharply debrided where it existed. Wound was copiously irrigated with pulse lavage. The testicle appeared to be viable. A small spermatocele in the cord was dissected free and removed. This appeared to be trying to infarct once exposed. This was sent to Pathology. Hemostasis was assured. After debridement irrigation, skin was partially closed with some interrupted 3-0 Prolene sutures to cover the testicle. The remainder of the wound was packed with Betadine gauze and infiltrated with 0.5% Marcaine. It was also sprayed with some topical thrombin. He tolerated the procedure well. COMPLICATIONS: No complications. /[id number]/MODL MTDD
--- NOTE | 2017-05-31 13:26 | GOP ---
[f rep st] OPERATIVE REPORT DATE OF OPERATION: 05/20/2017 SURGEON: Ta Weems MD PREOPERATIVE DIAGNOSIS: Necrotizing perineal infection. POSTOPERATIVE DIAGNOSIS: Necrotizing perineal infection, possible rectal perforation. PROCEDURE PERFORMED: Wound debridement, partial closure of the perineum with exam under anesthesia, and anoscopy. FINDINGS: much improved perineal necrosis but questional posterior rectal wall perforation ESTIMATED BLOOD LOSS: Less than 20 cc. DESCRIPTION OF PROCEDURE: The patient was taken to the operating room, where he received satisfactory general endotracheal anesthesia by Dr. Mai. He was placed in the lithotomy position, prepped and draped in usual sterile fashion. The wound was opened, yet again was irrigated with a pulse lavage and any necrotic areas were debrided. The perineum was further examined and a rectal exam was done after irrigating the rectum with an on-table enema. There appeared to be a thinned out, possibly necrotic posterior rectal perforation which could be partially visualized with the anoscope and was palpable on exam, although there was no definite [id number] tunnel demonstrated. The wound again was further debrided and irrigated, and then a portion of the wound was closed with a running 3-0 Prolene suture to cover the testicle. There was now an opening at the top of the scrotum, at the base of the penis, and a portion of the perineal wound was still open below. The wound was packed with Betadine gauze above and below. The wound was infiltrated with 0.5% Marcaine and dressed. He tolerated the procedure well, was taken to the recovery room in good condition. COMPLICATIONS: There were no complications. /[id number]/MODL MTDD
--- NOTE | 2017-05-31 14:41 | PCMIDPN ---
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 Currently covering with ceftriaxone and Flagyl. Went back to the operating room this morning. Minimal debridement needed. Single fever yesterday has not repeated yet. Blood cultures are no growth to date. Unclear etiology. Plan: 1. Continue both ceftriaxone and Flagyl. 2. Continue wound care. 3. Follow clinical course. 05/31/17 17:38 Subjective: Patient is resting in his hospital bed after returning from the operating room. Has no complaints. Objective: Ceftriaxone # 11 Flagyl # 10 Vital Signs Temp Pulse Resp BP Pulse Ox 37.7 C 73 16 136/86 H 99 05/31/17 13:58 05/31/17 13:58 05/31/17 13:58 05/31/17 13:58 05/31/17 13:58 Laboratory Results 05/31/17 07:25 05/31/17 07:25 05/30/17 05/31/17 06/01/17 05:59 05:59 05:59 Intake Total 3205.6 2984 Output Total 2640 2775 Balance 565.6 209 - Physical Exam General Appearance: WD/WN, alert, no apparent distress, non-toxic Respiratory: lungs clear, normal breath sounds, No respiratory distress Cardiac/Chest: regular rate, rhythm, No tachycardia Skin: normal color, warm/dry, No rash Neuro/Psych: alert, normal mood/affect, oriented x 3 ICD10 Worksheet Patient Problems: Problems Problem Status Onset Perirectal abscess Acute
--- NOTE | 2017-05-31 15:31 | ASMTCMCOM ---
CM Note CM Note Notes: Patient went to OR today for I&D and delayed primary closure of perirectal abscess. No wound vac was placed. Per ID note, patient will need 2-4 weeks of IV antibiotics. Referrals sent to [facility] for home infusion should patient want it (he was too groggy to talk to me today). Patient has not been able to work with PT/OT the last few days, so those recommendations are on hold. Case management will follow for discharge planning. Date Signed: 05/31/2017 03:30 PM Electronically Signed By:Rosalia Francisco RN
--- NOTE | 2017-05-31 16:21 | HOSPPROG ---
Hospitalist Progress Note Assessment/Plan: DIAGNOSES: -Fornier's gangrene status post multiple debridements, with some rectal perforation noted, now s/p diverting colostomy -fever each afternoon 3 of the last 4 days, uncertain etiology; question if this could possibly be due to his leukemia, no specific sign of any ongoing infection, cultures pending -CLL with expected associated leukocytosis and anemia -hypogammaglobulinemia related to his CLL, status post replacement therapy -headache and nausea last night, resolved PLANS: -continue current antibiotics; -I review his temperatures with doctors Ling and Adrian -continue current wound management -continue routine management of colostomy -pain management -DVT prophylaxis as ordered -I asked pt and nurse to at least begin some teaching/familiarizing with ostomy/ appliance care SUBJECTIVE: Assess the patient after his surgery today new he does not have any increase in pain today from yesterday No nausea or vomiting, has started to eat after surgery No respiratory symptoms No chills or sweats He did go to the OR today and had delayed primary closure of his buttocks and perineal wounds and small area of debridement of the wound in the scrotum which look good [address] OBJECTIVE Vitals reviewed: He has now had brief but significant fever at approximately 40 afternoon through the last 4 days. This in spite of his wounds looking very good and no other specific symptoms to suggest infection. Vitals are stable otherwise Exam: alert oriented skin warm dry color ok resps not labored lungs clear BSs heart regular abd soft nondistended nontender, bowel sounds present Ostomy site looks good with normal output limbs warm, no edema iv site ok Laboratory data: Further decrease in total white blood cell count, no neutropenia Stable chemistry panel Blood cultures from May 30 currently pending Objective: Vital Signs Temp Pulse Resp BP Pulse Ox 39.2 C H 82 18 143/64 H 96 05/31/17 16:00 05/31/17 16:00 05/31/17 16:00 05/31/17 16:00 05/31/17 16:00 Laboratory Results 05/31/17 07:25 05/31/17 07:25 05/30/17 05/31/17 06/01/17 06:59 06:59 06:59 Intake Total 3205.6 2984 Output Total 2640 2775 Balance 565.6 209 ICD10 Worksheet Patient Problems: Problems Problem Status Onset Perirectal abscess Acute
[2017-05-31] MEDS: ACETAMINOPHEN 325 MG TAB PO PRN ×2 (16:23→21:52)
[2017-05-31 19:15] LABS: COLOR YELLOW; LEUKOCYTE ESTERASE,URINE 1+ (NEGATIVE); NITRITE,URINE NEGATIVE (NEGATIVE)
[2017-05-31 19:19] LABS: MUCUS TRACE /lpf (NONE-1+)
[2017-05-31 19:52] LABS: POTASSIUM 3.3 mEq/L (3.5-5.2)
[2017-05-31] MEDS: POTASSIUM Cl (KCl) 10 MEQ in D5W 100 ML IV SCH (23:00)
[2017-06-01] MEDS: POTASSIUM Cl (KCl) 10 MEQ in D5W 100 ML IV SCH ×10 (00:31→22:20)
[2017-06-01 05:53] LABS: ADD MORPH? NO; ATYPICAL LYMPHOCYTE FLAG 20 (0-99); FRAGMENT RBC FLAG 0 (0-99); HEMATOCRIT 23.8 % (40.0-51.0); HEMOGLOBIN 7.5 g/dL (13.7-17.5); LEFT SHIFT FLG 10 (0-99); LIPEMIA HEMOLYSIS FLAG 80 (0-99); MEAN CELL HEMOGLOBIN CONCENTR. 31.5 g/dL (32.4-36.7); MEAN CELL VOLUME 104.8 fL (81.5-99.8); MEAN PLATELET VOLUME 11.7 fL (8.7-11.7); PLATELET CLUMPS FLAG 10 (0-99); PLATELET COUNT 179 10^3/uL (150-400); RED BLOOD CELL COUNT 2.27 10^6/uL (4.40-6.38); RED CELL DISTRIBUTION WIDTH 13.7 % (11.5-15.2)
[2017-06-01 05:58] LABS: ADD DIFF? YES
[2017-06-01 05:59] LABS: ADD SCAN? NO
[2017-06-01 06:05] LABS: ANION GAP 7 mEq/L (8-16); CALCIUM 7.7 mg/dL (8.5-10.4); CARBON DIOXIDE 27 mEq/l (22-31); CHLORIDE 104 mEq/L (97-110); GLOMERULAR FILTRATION RATE > 60; GLUCOSE 103 mg/dL (70-100); POTASSIUM 3.5 mEq/L (3.5-5.2); SODIUM 138 mEq/L (134-144)
[2017-06-01 07:33] LABS: HYPOCHROMIA 2+; MICROCYTES 1+; PLATELET ESTIMATE ADEQUATE (ADEQ)
[2017-06-01] MEDS: DOCUSATE SODIUM 100 MG CAP PO SCH ×2 (08:01→22:05)
[2017-06-01] MEDS: ENOXAPARIN 40 MG/0.4 ML SYR SC SCH (08:01)
[2017-06-01] MEDS: cefTRIAXone 2 GM in D5W 50 ML IV SCH (08:02)
--- NOTE | 2017-06-01 08:19 | SOAPPROG ---
SOAP Progress Note Assessment/Plan: Assessment/Plan: 62 Y M c CLL s/p I&D or perirectal abscess with Kandi's gangrene and rectal perforation. OR on 05/17, 05/18, 05/20, 05/24 for debridement. Also diverting colostomy on 05/24. Delayed primary closure with adriana drains 05/31. Low grade fever yesterday and this am, 100.3. Encouraged OOB, deep breathing, IS. Continue to monitor wounds--wounds were very clean at surgery with excellent granulation. Optimistic about healing but still cautious regarding potential infection. Dispo: pending. If no fevers and arrangements made could try to d/c this week before Thanksgiving with outpatient f/u. O: alert, nad nontoxic appearing no wob abd soft, ostomy pink wound: serosanguinous drainage, suture line intact 06/01/17 08:15 Objective: Vital Signs Temp Pulse Resp BP Pulse Ox 37.7 C 71 17 135/73 H 97 06/01/17 07:56 06/01/17 07:56 06/01/17 07:56 06/01/17 07:56 06/01/17 07:56 Laboratory Results 06/01/17 05:11 06/01/17 05:11 05/31/17 06/01/17 06/02/17 05:59 05:59 05:59 Intake Total 2987 1900 550 Output Total 5880 2615 Balance 209 -9953 151 ICD10 Worksheet Patient Problems: Problems Problem Status Onset Perirectal abscess Acute
[2017-06-01] MEDS ORDERED: POTASSIUM Cl (KCl) 100 ML IV SCH (10:00)
--- NOTE | 2017-06-01 10:56 | SOAPPROG ---
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 Dr. Ta Weems did additional debridement 05/31. Post op care per Dr. Weems. Followed by ID. * CLL: not requiring intervention and counts stable. 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 Probably retreat at minimum next week. Recheck today is pending; will replace if very low. * Recurrent fever: source unclear. Per sensitivities, the organisms should be well covered. Unlikely related to lymphoma. Possible that infection is not being thoroughly treated if IgG is low again. No obvious signs of clot. ? atelectasis ?drug fever. Discussed with Imed and ID. Subjective: No acute complaints. Denies cough or sob. Has never had fever with his lymphoma in the past. Objective: Vital Signs Temp Pulse Resp BP Pulse Ox 37.3 C 69 18 141/78 H 94 06/01/17 10:25 06/01/17 10:25 06/01/17 10:25 06/01/17 10:25 06/01/17 10:25 Laboratory Results 06/01/17 05:11 06/01/17 05:11 05/31/17 06/01/17 06/02/17 05:59 05:59 05:59 Intake Total 2984 1900 550 Output Total 3464 3025 Balance 209 -1125 550 Physical Exam - Physical Exam General Appearance: no apparent distress Respiratory: lungs clear Cardiac/Chest: regular rate, rhythm ICD10 Worksheet Patient Problems: Problems Problem Status Onset Perirectal abscess Acute
--- NOTE | 2017-06-01 12:05 | ASMTCMCOM ---
CM Note CM Note Notes: I spoke with patient about possible discharge needs. He hopes to discharge home with homecare, which I think is reasonable. He will need an RN for IV antibiotics and wound care, as well as a PT for home safety and strengthening. Veena from [facility] here to see patient and explain benefits. They have accepted him for home infusion services. Veena will also call his to follow up. She will arrange home care agency when patient is ready to discharge. CM will follow. Date Signed: 06/01/2017 12:05 PM Electronically Signed By:Rosalia Francisco RN
--- NOTE | 2017-06-01 12:22 | PCMIDPN ---
Assessment/Plan: # Necrotizing perineal infection with underlying CLL status multiple post debridements: Suspect perirectal source of infection. E coli and proteus predominate pathogens but suspect anaerobes as well as infection likely originated pj-rectally. surgery yesterday showed adequate debridement. Overall clinical improvement. --continue ceftriaxone + Flagyl, no antibiotic changes --discuss timing of discharge with surgical team, place PICC # Fever, last 2 days occurred at 1600. CXR reviewed with some B base haziness - no cough, O2 requirements stable. Doubt PNA. T39 a bit higher than typically attributable to atelectasis, but RN notes that fever trended down with deeper inspiratory efforts. Seems perineal infection has adequate debridement, making that less likely etiology. Could consider drug fever. C diff would be another consideration but no change in ostomy output --add on LFTs and check urine eosinophils # Hypogammaglobulinemia associated with underlying CLL: Status post IVIG replacement on 05/18/2017 - repeat IgG 700; checking level today antibiotics, # 14 Ceftriaxone 2 g IV daily # 12 Metronidazole 500 mg IV Q 8 #11 Microbiology 05/17 blood cultures (2) NGTD 05/17 surgical cultures: 2 species of E coli and Proteus (RJ to ceftriaxone < 1 for all organisms) Subjective: Pain and energy both improving. No change in the character of ostomy output Objective: Vital Signs Temp Pulse Resp BP Pulse Ox 37.3 C 69 18 141/78 H 94 06/01/17 10:25 06/01/17 10:25 06/01/17 10:25 06/01/17 10:25 06/01/17 10:25 Laboratory Results 06/01/17 05:11 06/01/17 05:11 05/31/17 06/01/17 06/02/17 05:59 05:59 05:59 Intake Total 2984 1900 550 Output Total 2775 3025 950 Balance 209 1125 -400 - Physical Exam General Appearance: alert, no apparent distress Respiratory: other (Decreased breath sounds in the bases), No accessory muscle use Neck: supple Cardiac/Chest: regular rate, rhythm Extremities: No pedal edema Abdomen: non-tender, soft Male Genitalia: testicular tenderness, tay, scrotal edema (Right hemiscrotum, [place] drain in place) Skin: No rash Neuro/Psych: alert, normal mood/affect, oriented x 3 - Time Spent With Patient Time Spent with Patient: greater than 25 minutes Time Spent with Patient: Greater than 25 minutes spent on this patients care, greater than 50% of time spent counseling, educating, and coordinating care regarding the above mentioned plan. ICD10 Worksheet Patient Problems: Problems Problem Status Onset Perirectal abscess Acute
--- NOTE | 2017-06-01 12:23 | WOCRNPDOC ---
WOCRN Advanced Assessment Note - Colostomy Assessment, Advanced Left Lower Abdomen Colostomy Stoma Colostomy Appliance Intact: Yes Colostomy Appliance Currently in Use: One Piece Flat (Coloplast, oval), Cut to Fit Stoma Color: Red Stoma Turgor: Moist, Shiny Stoma Shape: Oval Stoma Height: Protruding Slightly Mucocutaneus Junction: Intact Colostomy Effluent: Fecal, Liquid Colostomy Details: Loop Colostomy Comment/Treatment Details: Full appliance change and teaching w/ Alf this afternoon. Stoma is large (41mm top to bottom, 57mm side to side), oval-shaped, beginning to retract and is alomost flush w/ skin from 3-5 o' clock. Possible that patient will need some convexity going forward to help stoma protrude into pouch. Peristomal skin is intact w/ no denudement observed. Patient did not participate in pouch change today, but his assisted and asked specifc questions regarding care. Will need ongoing reinforcement and teaching. african history professor will meet with patient and again of at 11:00 for additional teaching and appliance change.
[2017-06-01] MEDS ORDERED: ALTEPLASE 2 MG VIAL IVP PRN (12:55)
[2017-06-01] MEDS: metroNIDAZOLE 500 MG TAB PO SCH ×2 (13:16→23:26)
[2017-06-01] MEDS: ACETAMINOPHEN 325 MG TAB PO PRN (13:16)
[2017-06-01 15:01] LABS: ALBUMIN 2.1 g/dL (3.5-5.0); BILIRUBIN,TOTAL 0.2 mg/dL (0.1-1.4); BILIRUBIN-CONJUGATED 0.1 mg/dL (0.0-0.5); BILIRUBIN-UNCONJUGATED 0.1 mg/dL (0.0-1.1); TOTAL PROTEIN 3.9 g/dL (6.3-8.2)
--- NOTE | 2017-06-01 16:39 | HOSPPROG ---
Hospitalist Progress Note Assessment/Plan: DIAGNOSES: -Fornier's gangrene status post multiple debridements, with some rectal perforation noted, now s/p diverting colostomy -fever each afternoon 3 of the last 4 days, uncertain etiology; question if this could possibly be due to his leukemia, no specific sign of any ongoing infection, cultures pending -CLL with expected associated leukocytosis and anemia -hypogammaglobulinemia related to his CLL, status post replacement therapy -headache and nausea last night, resolved PLANS: -continue current antibiotics -I reviewed his temperatures with doctors Ling and Cecil; appreciate Dr. Jacob input and will continue to follow cultures and temperatures, watch for any signs of any cause of fever -continue current wound management -continue routine management of colostomy -pain management -DVT prophylaxis as ordered SUBJECTIVE: Pain a bit better today overall No nausea or vomiting, has started to eat after surgery No respiratory symptoms No chills or sweats OBJECTIVE Vitals reviewed: Fever again yesterday afternoon and mild increase in temperature this morning, otherwise vitals normal Exam: alert oriented skin warm dry color ok resps not labored lungs clear BSs heart regular abd soft nondistended nontender, bowel sounds present Ostomy site looks good with normal output limbs warm, no edema iv site ok Laboratory data: All cell counts stable Blood cultures from May 30 currently no growth to date Objective: Vital Signs Temp Pulse Resp BP Pulse Ox 37.0 C 66 17 132/78 H 99 06/01/17 14:55 06/01/17 14:55 06/01/17 14:55 06/01/17 14:55 06/01/17 14:55 Laboratory Results 06/01/17 05:11 06/01/17 05:11 05/31/17 06/01/17 06/02/17 06:59 06:59 06:59 Intake Total 2985 0130 Output Total 3309 9668 436 Balance 253 -772 -525 ICD10 Worksheet Patient Problems: Problems Problem Status Onset Perirectal abscess Acute
[2017-06-01 18:49] LABS: EOSINOPHIL STAIN LOT NUMBER 519210; EOSMR EOSINOPHILS NO EOS SEEN (NO EOS SEEN); EOSMR EPITHELIAL CELLS NO EPITH CELLS SEEN; EOSMR PMNS FEW PMN CELLS; EOSMR RBCS FEW RBCS
[2017-06-01 19:15] LABS: POTASSIUM 3.3 mEq/L (3.5-5.2)
[2017-06-02] MEDS: metroNIDAZOLE 500 MG TAB PO SCH ×3 (05:51→21:04)
[2017-06-02 06:10] LABS: ANION GAP 5 mEq/L (8-16); CALCIUM 7.8 mg/dL (8.5-10.4); CARBON DIOXIDE 29 mEq/l (22-31); CHLORIDE 106 mEq/L (97-110); CREATININE 0.9 mg/dL (0.7-1.3); GLOMERULAR FILTRATION RATE > 60; GLUCOSE 100 mg/dL (70-100); POTASSIUM 3.4 mEq/L (3.5-5.2); SODIUM 140 mEq/L (134-144)
[2017-06-02] MEDS ORDERED: POTASSIUM Cl (KCl) 100 ML IV SCH ×2 (07:09→19:45)
[2017-06-02] MEDS: ENOXAPARIN 40 MG/0.4 ML SYR SC SCH (07:46)
[2017-06-02] MEDS: DOCUSATE SODIUM 100 MG CAP PO SCH ×2 (07:46→21:04)
--- NOTE | 2017-06-02 08:11 | PDIAF ---
- Diagnosis Diagnosis: Kandi's gangrene Code Status: Full Code - Medication Management Discharge Medications: Medications to Continue on Transfer Hydrochlorothiazide [HCTZ (*)] 25 mg PO DAILY 05/17/17 [Last Taken 05/16/17] Loratadine [Claritin 10 mg] 10 mg PO DAILY PRN 05/17/17 [Last Taken Unknown] Motrin (*) 800 mg PO DAILY PRN 05/17/17 [Last Taken 05/17/17] Potassium Chloride [Klor-Con M10] 10 meq PO DAILY 05/17/17 [Last Taken 05/16/17] Van Driver Helper Antibiotics: ceftriaxone 2gm IV daily; flagyl 500mg PO TID Van Driver Helper Antibiotic Stop Date: 06/28/17 Discharge Medications: Refer to the Discharge Home Medication list for PRN reason. PICC Care - Routine: Yes - Orders Services needed: Home Care, Registered Nurse, Physical Therapy Home Care Face to Face: I certify that this patient was under my care and that I had the required [id number] encounter meeting the encounter requirements on the discharge day. My findings support the fact that the patient is homebound as defined in Home Care Face to Face Continued: CMS Chapter 7 Medicare Benefits Manual 30.1.1 , The condition of the patient is such that there exists a normal inability to leave home and consequently, leaving home would require a considerable and taxing effort. - Labs/Radiology CBC w/diff Date: 06/07/17 (Weekly, Wednesday) CMP Date: 06/07/17 (Weekly, Wednesday) Call or Fax Lab and Imaging Results to: Elida Jacob MD [facility] at fax [phone] - Follow Up Care Current Providers and Referrals: Sanjiv Gross MD [Primary Care Provider] - Elida Jacob MD [Medical Doctor] - 06/11/17 11:00 am
[2017-06-02] MEDS: cefTRIAXone 2 GM in D5W 50 ML IV SCH (08:16)
--- NOTE | 2017-06-02 10:54 | HOSPPROG ---
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 Cx's c/w with Proteus and E-Coli , on Rocephin and Flagy IV via Right sided PICC. Still with intermittent diaphoresis and chills. Afebrile yesterday. Eating well. Walking. 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 check Mg. 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 Breathing well. Eating well. Still with diaphoresis and chills. No fever yesterday Objective: Vital Signs Temp Pulse Resp BP Pulse Ox 36.8 C 60 17 138/83 H 95 06/02/17 07:39 06/02/17 10:13 06/02/17 10:13 06/02/17 10:13 06/02/17 10:13 Laboratory Results 06/01/17 05:11 06/02/17 05:38 06/01/17 06/02/17 06/03/17 05:59 05:59 05:59 Intake Total 1900 2702 Output Total 3025 2550 Balance -1125 152 - Physical Exam Constitutional: no apparent distress, appears nourished Eyes: PERRL, EOMI Ears, Nose, Mouth, Throat: moist mucous membranes, hearing normal Cardiovascular: regular rate and rhythym, no murmur, rub, or gallop, systolic murmur Respiratory: no respiratory distress, no rales or rhonchi, clear to auscultation Gastrointestinal: normoactive bowel sounds, soft, non-tender abdomen, other ( ostomy patent) Skin: warm Neurologic: AAOx3 Psychiatric: interacting appropriately, not anxious, not encephalopathic ICD10 Worksheet Patient Problems: Problems Problem Status Onset Perirectal abscess Acute
[2017-06-02] MEDS: oxyCODONE IR 5 MG TAB PO PRN ×3 (11:35→22:13)
[2017-06-02] MEDS: POTASSIUM Cl (KCl) 10 MEQ in NS 100 ML IV SCH ×3 (11:36→13:38)
--- NOTE | 2017-06-02 13:07 | SOAPPROG ---
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 Dr. Ta Weems did additional debridement 05/31. Post op care per Dr. Weems. Followed by ID. * CLL: not requiring intervention and counts stable. 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 Probably retreat at minimum next week. Recheck 06/01 is pending; will replace if very low. * Recurrent fever: source unclear. Per sensitivities, the organisms should be well covered. Unlikely related to lymphoma. Seems resolved today. Subjective: Feeling better and no fever. Objective: Vital Signs Temp Pulse Resp BP Pulse Ox 36.8 C 69 22 H 122/69 H 95 06/02/17 07:39 06/02/17 12:01 06/02/17 12:01 06/02/17 12:01 06/02/17 12:01 Laboratory Results 06/01/17 05:11 06/02/17 05:38 06/01/17 06/02/17 06/03/17 05:59 05:59 05:59 Intake Total 1900 2702 Output Total 3025 2550 1000 Balance -1125 152 -1000 Physical Exam - Physical Exam General Appearance: no apparent distress ICD10 Worksheet Patient Problems: Problems Problem Status Onset Perirectal abscess Acute
--- NOTE | 2017-06-02 14:01 | SOAPPROG ---
SOAP Progress Note Assessment/Plan: Assessment/Plan: 62 Y M c CLL s/p I&D or perirectal abscess with Kandi's gangrene and rectal perforation. OR on 05/17, 05/18, 05/20, 05/24 for debridement. Also diverting colostomy on 05/24. Delayed primary closure with adriana drains 05/31. Also seen by Dr. Weems today. D/c [employer]YING [employer]OD[employer]. Regular diet. Abx per ID. Wound care consists of changing undergarment padding c ABDs/gauze at least daily or more often PRN saturation. Ok to shower. Appears to be afebrile today. Appreciate multiple teams' input. If discharged, then f/u trudy Weems in 1 week. Put this in d/c plan tab. O: alert, nad nontoxic appearing no wob abd soft, ostomy pink wound: serosanguinous drainage, suture line intact 06/01/17 08:15 06/02/17 13:59 Objective: Vital Signs Temp Pulse Resp BP Pulse Ox 36.8 C 69 22 H 122/69 H 95 06/02/17 07:39 06/02/17 12:01 06/02/17 12:01 06/02/17 12:01 06/02/17 12:01 Laboratory Results 06/01/17 05:11 06/02/17 05:38 06/01/17 06/02/17 06/03/17 05:59 05:59 05:59 Intake Total 1900 2702 Output Total 3025 2550 1000 Balance -1125 152 -1000 ICD10 Worksheet Patient Problems: Problems Problem Status Onset Perirectal abscess Acute
--- NOTE | 2017-06-02 15:11 | ASMTCMCOM ---
CM Note CM Note Notes: Pt will have [facility] for RN/PT in addition to [facility] for IV ABX. Met with pt to discuss DC plan. Pt's ostomy supply form faxed today and he will likely need extra supplies at DC until they are delivered. Pt's RN will contact wound care about this. C/M will continue to follow. Date Signed: 06/02/2017 03:10 PM Electronically Signed By:Kristy Adair LCSW
--- NOTE | 2017-06-02 16:47 | PCMIDPN ---
Assessment/Plan: # Necrotizing perineal infection with underlying CLL status multiple post debridements: Suspect perirectal source of infection. E coli and proteus predominate pathogens but suspect anaerobes as well as infection likely originated pj-rectally. wound now closed with adriana drainage. Overall clinical improvement, but patient remains fairly debilitated becoming pre- syncopal in shower today; poor food intake (patient will not admit to these things, reported by nursing). --continue ceftriaxone + PO Flagyl, no antibiotic changes, Antibiotic Stop Date : 06/28/17 --recommended continued inpatient monitoring for another couple days in light of fever on 05/31 and continued deconditioning. --discharge planning: discussed with case management needs daily nursing --discuss with surgery if tay is needed # Fever, last 2 days occurred at 05/31 1600. unclear source, LFTs nl , no urine eosinophils. Repeat blood cx negative # Hypogammaglobulinemia associated with underlying CLL: Status post IVIG replacement on 05/18/2017 - repeat IgG 700; checking level today antibiotics, # 15 Ceftriaxone 2 g IV daily # 13 Metronidazole 500 mg PO Q 8 #12 Microbiology 05/17 blood cultures (2) NGTD 05/17 surgical cultures: 2 species of E coli and Proteus (RJ to ceftriaxone < 1 for all organisms) 05/30 blood cx (2) NGTD Subjective: patient strongly desires discharge pain 1/10 PICC line placed yesterday RN reports pre-syncope when showering and minimal ambulation today due to many visitors Objective: Vital Signs Temp Pulse Resp BP Pulse Ox 36.8 C 68 18 129/85 H 96 06/02/17 15:22 06/02/17 15:22 06/02/17 15:22 06/02/17 15:22 06/02/17 15:22 Laboratory Results 06/01/17 05:11 06/02/17 05:38 06/01/17 06/02/17 06/03/17 05:59 05:59 05:59 Intake Total 1900 2702 Output Total 3025 2550 1000 Balance -1125 152 -1000 Tm 38 General Appearance: alert, no apparent distress, flat affect Resp: breathing easy Neck: supple Cardiac/Chest: regular rate, rhythm Extremities: No pedal edema Abdomen: non-tender, soft Male Genitalia: testicular tenderness, tay, scrotal edema (Right hemiscrotum, [place] drain in place) Skin: No rash Neuro/Psych: alert, normal mood/affect, oriented x 3 ICD10 Worksheet Patient Problems: Problems Problem Status Onset Perirectal abscess Acute
[2017-06-02 18:22] LABS: POTASSIUM 3.3 mEq/L (3.5-5.2)
[2017-06-02 18:24] LABS: IMMUNOGLOBULIN A 40 mg/dL (61 - 356); IMMUNOGLOBULIN G 592 mg/dL (767 - 1590); IMMUNOGLOBULIN M 37 mg/dL (37 - 286)
--- NOTE | 2017-06-02 18:48 | SOAPPROG ---
SOAP Progress Note Assessment/Plan: Assessment: PT WITH BAD PERIRECTAL INFECTION, POSSIBLY INVOLVING SCROTUM RISKS AND OPTIONS FULLY DISCUSSED NONDIABETIC BUT WITH CML BUT NO CHEMO Plan:OR I &D 05/17/17 21:30 05/28/17 09:06 AFEBRILE/ WOUND CLEANING UP/ OSTOMY OK/ PLAN OR NEXT WEEK FOR FURTHER DEBRIDEMENT NAD/ OR POSSIBLE CLOSURE 05/31/17 09:18 AFEBRILE/ PAIN CONTROL GOOD/ PLAN IS DRESSING CHANGE IN OR/ POSSIBLE PARTIAL CLOSURE AND/OR WOUND VAC RISKS AND OPTIONS FULLY DISCUSSED 06/02/17 18:48 Continues in to improve/formal bowel/afebrile/minimal drainage Home soon on IV antibiotics and follow up in the office as an outpatient Objective: Vital Signs Temp Pulse Resp BP Pulse Ox 36.8 C 68 18 129/85 H 96 06/02/17 15:22 06/02/17 15:22 06/02/17 15:22 06/02/17 15:22 06/02/17 15:22 Laboratory Results 06/01/17 05:11 06/02/17 17:35 06/01/17 06/02/17 06/03/17 05:59 05:59 05:59 Intake Total 1900 2702 800 Output Total 0435 2550 1450 [facility] -1602 152 -638 ICD10 Worksheet Patient Problems: Problems Problem Status Onset Perirectal abscess Acute - ICD10 Problem Qualifiers (1) Perirectal abscess
[2017-06-02] MEDS: POTASSIUM Cl (KCl) 10 MEQ in D5W 100 ML IV SCH ×2 (21:04→22:12)
[2017-06-03] MEDS: POTASSIUM Cl (KCl) 10 MEQ in D5W 100 ML IV SCH (00:24)
[2017-06-03] MEDS: metroNIDAZOLE 500 MG TAB PO SCH ×3 (05:39→21:28)
[2017-06-03] MEDS: oxyCODONE IR 5 MG TAB PO PRN ×2 (05:57→15:33)
[2017-06-03 06:13] LABS: % IMMATURE GRANULYOCYTES 0.1 % (0.0-1.1); ABSOLUTE IMMATURE GRANULOCYTES 0.06 10^3/uL (0.00-0.10); ADD DIFF? NO; ADD MORPH? NO; ADD SCAN? YES; ATYPICAL LYMPHOCYTE FLAG 10 (0-99); FRAGMENT RBC FLAG 0 (0-99); HEMATOCRIT 23.9 % (40.0-51.0); HEMOGLOBIN 7.5 g/dL (13.7-17.5); LEFT SHIFT FLG 0 (0-99); LIPEMIA HEMOLYSIS FLAG 80 (0-99); MEAN CELL HEMOGLOBIN 32.5 pg (27.9-34.1); MEAN CELL HEMOGLOBIN CONCENTR. 31.4 g/dL (32.4-36.7); MEAN CELL VOLUME 103.5 fL (81.5-99.8); MEAN PLATELET VOLUME 11.9 fL (8.7-11.7); PLATELET CLUMPS FLAG 20 (0-99); PLATELET COUNT 163 10^3/uL (150-400); RED BLOOD CELL COUNT 2.31 10^6/uL (4.40-6.38); RED CELL DISTRIBUTION WIDTH 13.7 % (11.5-15.2)
[2017-06-03 06:29] LABS: ANION GAP 7 mEq/L (8-16); CALCIUM 7.9 mg/dL (8.5-10.4); CARBON DIOXIDE 30 mEq/l (22-31); CHLORIDE 105 mEq/L (97-110); CREATININE 0.8 mg/dL (0.7-1.3); GLOMERULAR FILTRATION RATE > 60; GLUCOSE 109 mg/dL (70-100); MAGNESIUM 1.5 mg/dL (1.6-2.3); POTASSIUM 3.3 mEq/L (3.5-5.2); SODIUM 142 mEq/L (134-144)
[2017-06-03 07:03] LABS: SCAN POSITIVE
[2017-06-03 07:07] LABS: HYPOCHROMIA 1+; PLATELET ESTIMATE ADEQUATE (ADEQ)
[2017-06-03] MEDS ORDERED: MAGNESIUM SULF 2 GM/WATER 50 ML IV ONE (07:46)
[2017-06-03] MEDS ORDERED: POTASSIUM CL 10 MEQ TAB PO ONE (08:05)
[2017-06-03] MEDS: cefTRIAXone 2 GM in D5W 50 ML IV SCH (08:52)
[2017-06-03] MEDS: DOCUSATE SODIUM 100 MG CAP PO SCH ×2 (08:52→21:28)
[2017-06-03] MEDS: ENOXAPARIN 40 MG/0.4 ML SYR SC SCH (08:53)
[2017-06-03] MEDS: POTASSIUM CL 20 MEQ/15 ML UDCUP PO SCH (09:05)
--- NOTE | 2017-06-03 09:20 | HOSPPROG ---
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 Cx's c/w with Proteus and E-Coli, on Rocephin and Flagy IV via Right sided PICC. Feeling better. Fevers have resolved. 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 The patient is aware of this plan Subjective: Feeling better. Afebrile. [place] very dizzy yesterday while showering. Able to walk but does not feel strength is back to baseline. Objective: Vital Signs Temp Pulse Resp BP Pulse Ox 36.4 C 64 18 125/70 H 98 06/03/17 08:47 06/03/17 08:47 06/03/17 08:47 06/03/17 08:47 06/03/17 08:47 Laboratory Results 06/03/17 06:00 06/03/17 06:00 06/02/17 06/03/17 06/04/17 05:59 05:59 05:59 Intake Total 2702 800 Output Total 2550 2550 Balance 152 -1750 - Physical Exam Constitutional: no apparent distress Eyes: PERRL, EOMI Ears, Nose, Mouth, Throat: moist mucous membranes, hearing normal Cardiovascular: regular rate and rhythym, No edema Respiratory: no respiratory distress, no rales or rhonchi Gastrointestinal: normoactive bowel sounds, soft, non-tender abdomen Skin: warm Neurologic: AAOx3 Psychiatric: interacting appropriately, not anxious, not encephalopathic ICD10 Worksheet Patient Problems: Problems Problem Status Onset Perirectal abscess Acute
--- NOTE | 2017-06-03 09:50 | SOAPPROG ---
SOAP Progress Note Assessment/Plan: Assessment: Assessment/Plan: 62 Y M c CLL s/p I&D or perirectal abscess with Kandi's gangrene and rectal perforation. OR on 05/17, 05/18, 05/20, 05/24 for debridement. Also diverting colostomy on 05/24. Delayed primary closure with adriana drains 05/31. Regular diet. Abx per ID. Likely home soon. F/U Dr. Weems in 1 week May shower ABD daily and prn saturation S: Feeling better O: Drains in place. No erythema by incisions Plan: 06/03/17 09:47 Objective: Vital Signs Temp Pulse Resp BP Pulse Ox 36.4 C 64 18 125/70 H 98 06/03/17 08:47 06/03/17 08:47 06/03/17 08:47 06/03/17 08:47 06/03/17 08:47 Laboratory Results 06/03/17 06:00 06/03/17 06:00 06/02/17 06/03/17 06/04/17 05:59 05:59 05:59 Intake Total 2702 800 Output Total 2550 2550 Balance 152 -1750 ICD10 Worksheet Patient Problems: Problems Problem Status Onset Perirectal abscess Acute
[2017-06-03] MEDS: POTASSIUM Cl (KCl) 50 ML IV SCH ×3 (11:06→13:04)
--- NOTE | 2017-06-03 11:38 | SOAPPROG ---
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 Dr. Ta Weems did additional debridement 05/31. Post op care per Dr. Weems. Followed by ID. * CLL: not requiring intervention and counts stable. * Hypogammaglobulinemia: Secondary to the CLL: IgG from 06/01 adequate at 592. Will need another treatment next week in our office. * Recurrent fever: Per sensitivities, the organisms should be well covered. Unlikely related to lymphoma. It seems to have resolved. Subjective: Feeling well without new complaints. No further fever. Objective: Vital Signs Temp Pulse Resp BP Pulse Ox 36.4 C 64 18 125/70 H 98 06/03/17 08:47 06/03/17 08:47 06/03/17 08:47 06/03/17 08:47 06/03/17 08:47 Laboratory Results 06/03/17 06:00 06/03/17 06:00 06/02/17 06/03/17 06/04/17 05:59 05:59 05:59 Intake Total 2702 800 50 Output Total 2550 2550 225 Balance 152 -1750 -175 Laboratory Tests 05/24/17 06/01/17 06/01/17 05:28 05:11 06:19 WBC 50.49 H* Hgb 7.5 L Absolute Seg Neuts 3.53 Absolute Lymphocytes 46.45 H IgG 700 L 592 L 06/03/17 06:00 WBC 45.90 H Hgb 7.5 L Absolute Seg Neuts 2.75 Absolute Lymphocytes 42.69 H IgG Physical Exam - Physical Exam General Appearance: no apparent distress Respiratory: lungs clear Cardiac/Chest: regular rate, rhythm ICD10 Worksheet Patient Problems: Problems Problem Status Onset Perirectal abscess Acute
--- NOTE | 2017-06-03 12:39 | PCMIDPN ---
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 Currently covering with ceftriaxone and Flagyl. Wound closed over a drain. Fever curve it is significantly improved over the last 48-72 hours. Patient looks clinically nontoxic. Still somewhat deconditioned. Probable discharge in the next 24 hours. Plan: 1. Continue both ceftriaxone and oral Flagyl. 2. Continue wound care. 3. Follow clinical course. Subjective: Patient is resting comfortably in his hospital bed. Has no complaints. No fever over the past 24 hours. Objective: Ceftriaxone # 14 Flagyl p.o. # 13 Vital Signs Temp Pulse Resp BP Pulse Ox 36.4 C 64 18 125/70 H 98 06/03/17 08:47 06/03/17 08:47 06/03/17 08:47 06/03/17 08:47 06/03/17 08:47 Laboratory Results 06/03/17 06:00 06/03/17 06:00 06/02/17 06/03/17 06/04/17 05:59 05:59 05:59 Intake Total 2702 800 50 Output Total 2550 2550 225 Balance 152 -1750 -175 - Physical Exam General Appearance: WD/WN, alert, no apparent distress, non-toxic Respiratory: lungs clear, normal breath sounds, No respiratory distress Cardiac/Chest: regular rate, rhythm, No tachycardia Skin: normal color, warm/dry, No rash Neuro/Psych: alert, normal mood/affect, oriented x 3 ICD10 Worksheet Patient Problems: Problems Problem Status Onset Perirectal abscess Acute
[2017-06-03 20:54] LABS: POTASSIUM 3.4 mEq/L (3.5-5.2)
[2017-06-03] MEDS ORDERED: POTASSIUM CL 20 MEQ/15 ML UDCUP PO ONE (21:30)
[2017-06-04] MEDS: metroNIDAZOLE 500 MG TAB PO SCH ×2 (05:19→14:29)
[2017-06-04 05:35] LABS: ABSOLUTE NRBC COUNT 0.03 10^3/uL (0-0.01); ADD MORPH? NO; ATYPICAL LYMPHOCYTE FLAG 10 (0-99); FRAGMENT RBC FLAG 0 (0-99); HEMATOCRIT 25.2 % (40.0-51.0); HEMOGLOBIN 8.2 g/dL (13.7-17.5); LEFT SHIFT FLG 0 (0-99); LIPEMIA HEMOLYSIS FLAG 80 (0-99); MEAN CELL HEMOGLOBIN 33.5 pg (27.9-34.1); MEAN CELL HEMOGLOBIN CONCENTR. 32.5 g/dL (32.4-36.7); MEAN CELL VOLUME 102.9 fL (81.5-99.8); MEAN PLATELET VOLUME 11.9 fL (8.7-11.7); NRBC-AUTO% 0.1 % (0.0-0.2); PLATELET CLUMPS FLAG 10 (0-99); PLATELET COUNT 201 10^3/uL (150-400); RED BLOOD CELL COUNT 2.45 10^6/uL (4.40-6.38); RED CELL DISTRIBUTION WIDTH 13.6 % (11.5-15.2)
[2017-06-04 05:41] LABS: ADD DIFF? YES; ADD SCAN? NO
[2017-06-04 05:48] LABS: ANION GAP 6 mEq/L (8-16); CALCIUM 8.3 mg/dL (8.5-10.4); CARBON DIOXIDE 29 mEq/l (22-31); CHLORIDE 107 mEq/L (97-110); CREATININE 0.8 mg/dL (0.7-1.3); GLOMERULAR FILTRATION RATE > 60; GLUCOSE 112 mg/dL (70-100); MAGNESIUM 1.9 mg/dL (1.6-2.3); POTASSIUM 3.6 mEq/L (3.5-5.2); SODIUM 142 mEq/L (134-144)
[2017-06-04 06:28] LABS: PLATELET ESTIMATE ADEQUATE (ADEQ)
[2017-06-04 07:52] VITALS: RESP 17
[2017-06-04] MEDS: cefTRIAXone 2 GM in D5W 50 ML IV SCH (08:46)
[2017-06-04] MEDS: POTASSIUM CL 20 MEQ/15 ML UDCUP PO SCH (09:21)
[2017-06-04] MEDS: DOCUSATE SODIUM 100 MG CAP PO SCH (09:22)
[2017-06-04] MEDS: ENOXAPARIN 40 MG/0.4 ML SYR SC SCH (09:22)
[2017-06-04] MEDS ORDERED: POTASSIUM CL 10 MEQ TAB PO ONE (09:56)
--- NOTE | 2017-06-04 10:09 | PDIAF ---
- Diagnosis Diagnosis: Kandi's gangrene, Deconditioning Code Status: Full Code - Medication Management Discharge Medications: Medications to Continue on Transfer Hydrochlorothiazide [HCTZ (*)] 25 mg PO DAILY 05/17/17 [Last Taken 05/16/17] Loratadine [Claritin 10 mg] 10 mg PO DAILY PRN 05/17/17 [Last Taken Unknown] Motrin (*) 800 mg PO DAILY PRN 05/17/17 [Last Taken 05/17/17] Potassium Chloride [Klor-Con M10] 10 meq PO DAILY 05/17/17 [Last Taken 05/16/17] Power Mule Operator Antibiotics: ceftriaxone 2gm IV daily; flagyl 500mg PO TID Power Mule Operator Antibiotic Stop Date: 06/28/17 Discharge Medications: Refer to the Discharge Home Medication list for PRN reason. PICC Care - Routine: Yes - Orders Services needed: Home Care, Registered Nurse, Physical Therapy Home Care Face to Face: I certify that this patient was under my care and that I had the required [id number] encounter meeting the encounter requirements on the discharge day. My findings support the fact that the patient is homebound as defined in Home Care Face to Face Continued: CMS Chapter 7 Medicare Benefits Manual 30.1.1 , The condition of the patient is such that there exists a normal inability to leave home and consequently, leaving home would require a considerable and taxing effort. - Labs/Radiology CBC w/diff Date: 06/07/17 (Weekly, Wednesday) CMP Date: 06/07/17 (Weekly, Wednesday) Call or Fax Lab and Imaging Results to: Elida Jacob MD [facility] at fax [phone] - Follow Up Care Current Providers and Referrals: Sanjiv Gross MD [Primary Care Provider] - Ta Weems MD [Medical Doctor] - follow up in 1 week Elida Jacob MD [Medical Doctor] - 06/11/17 11:00 am
--- NOTE | 2017-06-04 10:58 | SOAPPROG ---
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 Dr. Ta Weems did additional debridement 05/31. Post op care per Dr. Weems. Followed by ID. Ok to go home from our service standpoint. * CLL: not requiring intervention and counts stable. * Hypogammaglobulinemia: Secondary to the CLL: IgG from 06/01 adequate at 592. Will need another treatment next week in our office. * Recurrent fever: Per sensitivities, the organisms should be well covered. Unlikely related to lymphoma. It seems to have resolved. Subjective: Feeling well and hoping to go home today. No fever. Objective: Vital Signs Temp Pulse Resp BP Pulse Ox 36.6 C 75 17 143/77 H 93 06/04/17 07:51 06/04/17 07:51 06/04/17 07:51 06/04/17 07:51 06/04/17 07:51 Laboratory Results 06/04/17 05:23 06/04/17 05:23 06/03/17 06/04/17 06/05/17 05:59 05:59 05:59 Intake Total 800 1900 Output Total 2550 1625 200 Balance -1750 275 -200 Physical Exam - Physical Exam General Appearance: no apparent distress ICD10 Worksheet Patient Problems: Problems Problem Status Onset Perirectal abscess Acute
[2017-06-04] MEDS ORDERED: POTASSIUM CL 20 MEQ/15 ML UDCUP PO ONE (11:00)
[2017-06-04 12:01] VITALS: BP 130/69; PULSE 73; TEMP 98; O2SAT 95
[2017-06-04] MEDS: oxyCODONE IR 5 MG TAB PO PRN (13:04)
--- NOTE | 2017-06-04 14:05 | PDDCSUM ---
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 Cx's c/w with Proteus and E-Coli, on Rocephin and Flagy IV via Right sided PICC. Feeling better. Fevers have resolved. Pain well controlled on PO meds. Tolerating PO. Able to ambulate. Plan for IV abx through 06/28/17. ID will follow. Will need f/u with Onc next week. Is being d/c with [facility]. 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 WILL ALSO F/U WITH PCP IN 1-2 WEEKS TOTAL TIME SPENT ON DISCHARGE IS 35 MINUTES
--- NOTE | 2017-06-04 15:36 | ASDISCHSUM ---
Discharge Information Plan Status:IV ABX/Infusion Medically Cleared to Leave: Discharge Date:06/04/2017 03:16 PM D/C Disposition:Home Health Service ADT D/C Disposition:Home Health Service Projected Discharge Date:06/04/2017 11:00 AM Transportation at D/C:Family Discharge Delay Reason: Follow-Up Date:06/04/2017 11:00 AM Discharge Slot: Final Diagnosis: Placement Information Referral Type:Home Infusion Referral ID:[id number] Provider Name:[facility] [place] Address 1:[address] [place], [facility] [address] Address 2: City:[place] Selection Factors: State:[place] Referral Type:*Home Health Care Services Referral ID:[id number] Provider Name:[facility] Address 1:[address], [facility] [address] Address 2: City:[place] Selection Factors: State:[place] Patient Contact Information Contact Name:RANDY Relationship: Address:[address] [place] City:[place] Alternate Phone: State/Zip Code:[place] [address] Email: Financial Information Financial Class:[employer] Primary Plan Desc:[employer] [facility] Primary Plan Number:[id number] Secondary Plan Desc: Secondary Plan Number: Assessment Information [facility] CM Progress Note CM Note CM Note Notes: Patient is POD # 0 + 1 I&D perirectal abscess. He has a history of CLL but is not receiving chemo at this time. No PT/OT ordered; patient lives indepedently with his . He is scheduled to back to the OR in two days for a dressing change and possible closure. He may need a diverting colostomy. Discharge needs TBD. CM will follow. Date Signed: 05/18/2017 03:52 PM Electronically Signed By:Rosalia Francisco RN LACE LACE Length of stay for Answers: 3 days current admission Acuity / Level of Care Answers: No. Comorbidities - select Answers: Metastatic solid tumor all that apply Emergency dept visits in Answers: 0 last 6 months Score: 9 Date Signed: 05/20/2017 09:46 AM Electronically Signed By:Fabiola Juarez RN [facility] CM Progress Note CM Note CM Note Notes: Spoke with RAJWINDER Umanzor from [employer] ([id number]) . She would like to be informed of dc plan. CM to follow as needs to be determined. Date Signed: 05/20/2017 04:11 PM Electronically Signed By:Fabiola Juarez RN [facility] Initial CM Assessment Date Signed: 05/25/2017 05:12 PM Electronically Signed By:NILESH Sullivan [facility] CM Progress Note CM Note CM Note Notes: Patient to surgery today. Because of patients wounds he made to go to an LTAC. Its perhaps too early yet to know if he will quality for SNF. Case management will follow. Date Signed: 05/25/2017 05:11 PM Electronically Signed By:NILESH Sullivan [facility] CM Progress Note CM Note CM Note Notes: Pt is POD #1. DC needs not clear yet. Discussed w/RN and reviewed chart. Pt has involved wound care which requires several people at this time. OT recommending HHC vs SNF, awaiting PT recommendation. Met w/pt who said he lives at home w/ and daughter. CM w/f and plan for dc needs as they become more clear; will certainly need wound care follow up whether at home or in facility. Date Signed: 05/26/2017 03:59 PM Electronically Signed By:Rosy Box RN [facility] CM Progress Note CM Note CM Note Notes: Pt will likely remain inpt for at least one more week. Tentative plan is to get stem cell transplant after DC. It is u nclear if pt will keep PICC line at DC. C/M will follow for DC needs. Date Signed: 05/27/2017 03:39 PM Electronically Signed By:Kristy Adair LCSW [facility] CM Progress Note CM Note CM Note Notes: Please ignore previous note. It was wriiten on wrong patient. It should be for pt [id number]. Date Signed: 05/27/2017 03:40 PM Electronically Signed By:Kristy Adair LCSW [facility] CM Progress Note CM Note CM Note Notes: Pt having multiple episodes of vomitting today per RN and is not able to discuss DC plan. Pt will need wound care at DC. It is unclear how extensive his care simone be and if he will require a SNF at first. C/M will continue to follow. Date Signed: 05/29/2017 01:35 PM Electronically Signed By:Kristy Adair LCSW [facility] CM Progress Note CM Note CM Note Notes: Patient went to OR today for I&D and delayed primary closure of perirectal abscess. No wound vac was placed. Per ID note, patient will need 2-4 weeks of IV antibiotics. Referrals sent to [facility] for home infusion should patient want it (he was too groggy to talk to me today). Patient has not been able to work with PT/OT the last few days, so those recommendations are on hold. Case management will follow for discharge planning. Date Signed: 05/31/2017 03:30 PM Electronically Signed By:Rosalia Francisco RN [facility] Progress Note CM Note CM Note Notes: I spoke with patient about possible discharge needs. He hopes to discharge home with homecare, which I think is reasonable. He will need an RN for IV antibiotics and wound care, as well as a PT for home safety and strengthening. Veena from [facility] here to see patient and explain benefits. They have accepted him for home infusion services. Veena will also call his to follow up. She will arrange home care agency when patient is ready to discharge. CM will follow. Date Signed: 06/01/2017 12:05 PM Electronically Signed By:Rosalia Francisco RN [facility] CM Progress Note CM Note CM Note Notes: Pt will have [facility] for RN/PT in addition to [facility] for IV ABX. Met with pt to discuss DC plan. Pt's ostomy supply form faxed today and he will likely need extra supplies at DC until they are delivered. Pt's RN will contact wound care about this. C/M will continue to follow. Date Signed: 06/02/2017 03:10 PM Electronically Signed By:Kristy Adair LCSW Case Management Discharge Plan Note Case Management Discharge Discharge Order Complete? Answers: Yes Patient to Obtain Answers: Independently Medications Transportation Arranged Answers: Family/Friends Faxed Final Orders Answers: Yes Notes: via 24h00 Family Notified Answers: Yes Discharge Comments Notes: Today Pt. being d/c'ed. CM met w/ Pt. to make sure we were on the same page regarding his d/c plan. Pt. agreed and requested CM go forward with plans. RAJWINDER spoke w/ Leena at [facility] to set up RN and PT. [facility] good with visiting Pt. tomorrow. RAJWINDER called Veena at [employer] [facility] [employer] and she is all set to deliver IV meds and supplies today to Pt's home. Sent orders and d/c med list through 24h00. RAJWINDER called [employer] regarding Pt's ostomy supplies. [place] did not receive signed script back from Dr. Perry Weesm' office. RAJWINDER paged Dr. Prema Nathan who agreed to sign if RAJWINDER could get script faxed locally to [facility] floor. [place] was able to do so and Dr. Nathan signed. RAJWINDER faxed script back to [phone]. Will likely take several days for ostomy supplies to be delivered to Pt's home. Bedside RN providing several days of ostomy supplies at d/c. Pt's ID# at [facility] is [id number]. RAJWINDER provided all contact information above for Pt. on a sheet of paper. RAJWINDER spoke w/ Pt's Alf on the phone to provide support. Date Signed: 06/04/2017 03:05 PM Electronically Signed By:Ning Diaz LCSW Intervention Information Intervention Type:*Incorrect Registration Date of Service:05/17/2017 10:46 AM Patient Type:Inpatient Staff Member:PATSY Francis Susan Hours: Discipline: Severity: Comment:
== END 2017-06-04 15:16 | disposition home health service (06) | DRG 711 ==
LOC: F1N 16:21 → OBSVTOIN 17:39 → F2N 21:55 → F1N 05-19 10:18
PROVIDERS: ADMIT Internal Medicine; ATTEND Surgery
PROC: 0JBB0ZZ Excision of Perineum Subcutaneous Tissue and Fascia, Open Approach (ICD-10-PCS; 2017-05-17)
PROC: 0H98XZX Drainage of Buttock Skin, External Approach, Diagnostic (ICD-10-PCS; 2017-05-17)
PROC: 0VBJ0ZZ Excision of Right Epididymis, Open Approach (ICD-10-PCS; 2017-05-18)
PROC: 0HD9XZZ Extraction of Perineum Skin, External Approach (ICD-10-PCS; 2017-05-18)
PROC: 0HD9XZZ Extraction of Perineum Skin, External Approach (ICD-10-PCS; 2017-05-20)
PROC: 0HD9XZZ Extraction of Perineum Skin, External Approach (ICD-10-PCS; 2017-05-24)
PROC: 0H99XZZ Drainage of Perineum Skin, External Approach (ICD-10-PCS; 2017-05-24)
PROC: 0D1N0Z4 Bypass Sigmoid Colon to Cutaneous, Open Approach (ICD-10-PCS; principal; 2017-05-24 14:00)
PROC: 0HD9XZZ Extraction of Perineum Skin, External Approach (ICD-10-PCS; 2017-05-31)
PROC: 0W9M00Z Drainage of Male Perineum with Drainage Device, Open Approach (ICD-10-PCS; 2017-05-31)
PROC: 0WQ Anatomical Regions, General, Repair (ICD-10-PCS; 2017-05-31)
PROC: 02HV33Z Insertion of Infusion Device into Superior Vena Cava, Percutaneous Approach (ICD-10-PCS; 2017-06-01)
DX: N49.3 Fournier gangrene (principal); K63.1 Perforation of intestine (nontraumatic); C91.10 Chronic lymphocytic leukemia of B-cell type not having achieved remission; N43.40 Spermatocele of epididymis, unspecified; E87.6 Hypokalemia; N17.9 Acute kidney failure, unspecified; R50.9 Fever, unspecified; D80.1 Nonfamilial hypogammaglobulinemia; I95.9 Hypotension, unspecified; B96.20 Unspecified Escherichia coli [E. coli] as the cause of diseases classified elsewhere; B96.4 Proteus (mirabilis) (morganii) as the cause of diseases classified elsewhere; I10 Essential (primary) hypertension
CPT/HCPCS: 82784-90; 97116-GP; 97161-GP; 97166-GO; 97530-GO; 97530-GP; 97535-GO; C1751; J0171; J0690; J0696; J1100; J1170; J1335; J1459; J1650; J2060; J2250; J2370; J2405; J2543; J2704; J2765; J3010; J3370; P9041

== ENCOUNTER → 2017-08-09 | Outpatient (CLI) | payer OTHER | LOC: FIMAGING 15:47 | PROVIDERS: ATTEND Internal Medicine Hematology & Oncology | DX: I82.411 Acute embolism and thrombosis of right femoral vein (principal); I82.4Z1 Acute embolism and thrombosis of unspecified deep veins of right distal lower extremity; R59.0 Localized enlarged lymph nodes ==

== ENCOUNTER 2017-08-27 06:54 | Day surgery (SDC) | payer OTHER ==
[2017-08-27] MEDS ORDERED: LR 1,000 ML IV ONE (07:14)
[2017-08-27 07:38] VITALS: PULSE 53
--- NOTE | 2017-08-27 07:41 | PDHPUP ---
History & Physical Update H&P update statement: This history and physical update is based on an assessment of the patient which was completed after admission or registration (within 24 hours), but prior to the surgery/procedure.
[2017-08-27] MEDS ORDERED: cefOXitin SODIUM 2 GM in STERILE WATER INJ 21 ML IV ONE (07:46)
[2017-08-27] MEDS ORDERED: BUPIVACAINE/EPI 0.5% 30 ML SDV ONE (08:48)
[2017-08-27] MEDS ORDERED: MIDAZOLAM 2 MG/2 ML VIAL IVP ONE (08:59)
[2017-08-27] MEDS ORDERED: MIDAZOLAM 2 MG/2 ML VIAL ONE (09:01)
--- NOTE | 2017-08-27 09:03 | PDANEPAE ---
ANE History of Present Illness Eua Sigmoidoscopy ANE Past Medical History - Cardiovascular History Hx Hypertension: Yes Hx Arrhythmias: No Hx Chest Pain: No Hx Coronary Artery / Peripheral Vascular Disease: No Hx CHF / Valvular Disease: No Hx Palpitations: No - Pulmonary History Hx COPD: No Hx Asthma/Reactive Airway Disease: No Hx Recent Upper Respiratory Infection: No Hx Oxygen in Use at Home: No Hx Sleep Apnea: No Sleep Apnea Screening Result - Last Documented: Positive Pulmonary History Comment: pt smoked cigars - Neurologic History Hx Cerebrovascular Accident: No Hx Seizures: No Hx Dementia: No - Endocrine History Hx Diabetes: No Hypothyroid: No Hyperthyroid: No - Renal History Hx Renal Disorders: No Renal History Comment: arf - Liver History Hx Hepatic Disorders: No - Neurological & Psychiatric Hx Hx Neurological and Psychiatric Disorders: No - Cancer History Hx Cancer: Yes Cancer History Comment: CLL, currently on IV chemo - Congenital Disorder History Hx Congenital Disorders: No - GI History Hx Gastrointestinal Disorders: Yes Gastrointestinal History Comment: colostomy - Other Health History 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 - Chronic Pain History Chronic Pain: No - Surgical History Prior Surgeries: perirectal abscess nov infection debridement ANE Review of Systems Review of Systems: - Exercise capacity METS (RN): 4 METS ANE Patient History - Allergies Allergies/Adverse Reactions: (seasonal allergies) Allergy (Uncoded 05/17/17 16:32) - Home Medications Home Medications: Hydrochlorothiazide [HCTZ (*)] 05/17/17 [Last Taken 05/16/17] Potassium Chloride [Klor-Con M10] 05/17/17 [Last Taken 05/16/17] Eliquis 08/26/17 [Last Taken Unknown] oxyCODONE IR [Oxycodone Ir (*)] 08/26/17 [Last Taken Unknown] - NPO status NPO Since - Liquids (Date): 08/26/17 NPO Since - Liquids (Time): 22:00 NPO Since - Solids (Date): 08/26/17 NPO Since - Solids (Time): 15:00 - Anes Hx Anes Hx: no prior problems - Smoking Hx Smoking Status: Former smoker - Alcohol Use Alcohol Use: Occasionally - Family Anes Hx Family Anes Hx: none Family Hx Anesthesia Complications: none ANE Labs/Vital Signs - Vital Signs Blood Pressure: 126/77 Heart Rate: 53 Respiratory Rate: 16 O2 Sat (%): 96 Height: 191.77 cm Weight: 102.058 kg ANE Physical Exam - Airway Neck exam: FROM Mallampati Score: Class 1 Mouth exam: normal dental/mouth exam - Pulmonary Pulmonary: no respiratory distress - Cardiovascular Cardiovascular: regular rate and rhythym - ASA Status ASA Status: II ANE Anesthesia Plan Anesthesia Plan: GA w LMA
[2017-08-27] MEDS ORDERED: PROPOFOL 200 MG/20 ML VIAL ONE (09:12)
[2017-08-27] MEDS ORDERED: fentaNYL 100 MCG/2 ML INJ ONE ×2 (09:12)
[2017-08-27] MEDS ORDERED: PROPOFOL/EMULSION 500 MG/50 ML BOTTLE IV ONE (09:13)
[2017-08-27] MEDS ORDERED: LIDOCAINE 2% 5 ML SDV ONE (09:14)
[2017-08-27] MEDS ORDERED: ONDANSETRON 4 MG/2 ML VIAL IVP PRN (09:43)
[2017-08-27] MEDS ORDERED: PROMETHAZINE HCL 25 MG/ML INJ IVP PRN (09:43)
[2017-08-27] MEDS ORDERED: fentaNYL 100 MCG/2 ML INJ IVP PRN (09:43)
[2017-08-27] MEDS ORDERED: NALOXONE HCL 0.4 MG/ML INJ IVP PRN (09:43)
[2017-08-27] MEDS ORDERED: DEXAMETHASONE 4 MG/ML VIAL IVP PRN (09:43)
[2017-08-27] MEDS ORDERED: OXYCODONE/APAP 5/325 TAB PO PRN (09:43)
[2017-08-27] MEDS ORDERED: HYDROmorphONE/DILAUDID 1 MG/ML INJ IVP PRN (09:43)
[2017-08-27 10:24] VITALS: TEMP 97.9
--- NOTE | 2017-08-27 10:30 | POSTOPPROG ---
Post Op Note Date of Operation: 08/27/17 Surgeon: Ta Weems Agricultural Mechanic: Ruby Anesthesiologist: Jason Anesthesia: GET(General Endotracheal) Pre-op Diagnosis: Perirectal abscess Post-op Diagnosis: same Indication: Exam to evaulate rectum for possible colostomy take down. Procedure: EUA, flex sig Findings: No fistulas seen Inf/Abcess present in the surg proc area at time of surgery?: No EBL: Minimal
[2017-08-27 11:20] VITALS: RESP 14
[2017-08-27 11:21] VITALS: BP 101/66; O2SAT 93
--- NOTE | 2017-08-27 13:54 | POSTANESTH ---
Post Anesthetic Evaluation Cardiovascular Status: Normal, Stable Respiratory Status: Normal, Stable Level of Consciousness/Mental Status: Can Participate in Eval Pain Control: Adequate, Prn Tx Ordered Nausea/Vomiting Control: Adequate, Prn Tx Ordered Complications Possibly Related to Anesthesia: None Noted
--- NOTE | 2017-08-28 13:07 | GOP ---
[f rep st] OPERATIVE REPORT DATE OF OPERATION: 08/27/2017 SURGEON: Ta Weems MD PREOPERATIVE DIAGNOSIS: History of Kandi's gangrene and perirectal abscess. POSTOPERATIVE DIAGNOSIS: History of Kandi's gangrene and perirectal abscess. PROCEDURE PERFORMED: 1. Examination under anesthesia. 2. Limited colonoscopy. FINDINGS: The patient was found to have a clean colon, with no evidence of colitis or other etiology to explain his previous infection. Anoscopy exam revealed no fissures, polyps, or fistula. He did have grade 2 internal hemorrhoids. The sphincter appeared to be adequate. DESCRIPTION OF PROCEDURE: The patient was taken to the operating room, where he received satisfactor y general laryngeal mask anesthesia by Dr. Gomez. He was placed in the lithotomy position, prepped, and draped in the usual sterile fashion. An anoscope was introduced, and the anus was well examined , with no evidence of pathology to explain his previous infection. The colonoscope was introduced an d passed without difficulty up the left side of the colon to his colostomy level. There were no muco ciro lesions, polyps, diverticula, or significant inflammatory changes throughout that segment of his colon. The scope was withdrawn. He tolerated the procedure well, and he was taken to the recovery r oom in good condition. There were no complications. /[id number]/MODL
== END 2017-08-27 11:10 | disposition home or self-care (01) ==
LOC: FSGY 06:54
PROVIDERS: ATTEND Surgery
PROC: 0DJD8ZZ Inspection of Lower Intestinal Tract, Via Natural or Artificial Opening Endoscopic (ICD-10-PCS; principal; 2017-08-27 08:30)
DX: K61.1 Rectal abscess (principal); K64.1 Second degree hemorrhoids; C91.10 Chronic lymphocytic leukemia of B-cell type not having achieved remission; Z93.3 Colostomy status; Z79.2 Long term (current) use of antibiotics
CPT/HCPCS: J0694; J2250; J2704; J3010

== ENCOUNTER 2017-10-12 06:31 | Inpatient (IN) | payer OTHER ==
[2017-10-12] MEDS ORDERED: cefOXitin SODIUM 2 GM in STERILE WATER INJ 21 ML IV ONE (06:35)
[2017-10-12] MEDS ORDERED: LR 1,000 ML IV ONE (06:36)
[2017-10-12] MEDS ORDERED: LIDOCAINE 1% 2 ML INJ ID PRN (06:36)
[2017-10-12] MEDS ORDERED: MIDAZOLAM 2 MG/2 ML VIAL IVP ONE (07:12)
--- NOTE | 2017-10-12 07:12 | PDANEPAE ---
ANE History of Present Illness 62 yo for colostomy takedown ANE Past Medical History - Cardiovascular History Hx Hypertension: Yes Hx Arrhythmias: No Hx Chest Pain: No Hx Coronary Artery / Peripheral Vascular Disease: No Hx CHF / Valvular Disease: No Hx Palpitations: No Cardiovascular History Comment: WELL CONTROLLED - Pulmonary History Hx COPD: No Hx Asthma/Reactive Airway Disease: No Hx Recent Upper Respiratory Infection: No Hx Oxygen in Use at Home: No Hx Sleep Apnea: No Sleep Apnea Screening Result - Last Documented: Positive Pulmonary History Comment: pt smoked cigars - Neurologic History Hx Cerebrovascular Accident: No Hx Seizures: No Hx Dementia: No - Endocrine History Hx Diabetes: No - Renal History Hx Renal Disorders: No Renal History Comment: arf - Liver History Hx Hepatic Disorders: No - Neurological & Psychiatric Hx Hx Neurological and Psychiatric Disorders: No - Cancer History Hx Cancer: Yes Cancer History Comment: CLL, currently on IV chemo - EVERY 6 MOS IVIG LD 4-5 WKS AGO - Congenital Disorder History Hx Congenital Disorders: No - GI History Hx Gastrointestinal Disorders: Yes Gastrointestinal History Comment: colostomy - Other Health History 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 COLOSTOMY ANE Review of Systems Review of Systems: - Exercise capacity METS (RN): 5 METS ANE Patient History - Allergies Allergies/Adverse Reactions: No Known Allergies Allergy (Verified 10/07/17 15:46) - Home Medications Home medications: home medication list seen and reviewed Home Medications: Apixaban [Eliquis] 5 mg PO BID 10/07/17 [Last Taken 10/08/17] Cetirizine [ZyrTEC 10 mg (*)] 10 mg PO DAILY PRN 10/07/17 [Last Taken 10/09/17] Hydrochlorothiazide [HCTZ (*)] 25 mg PO DAILY 10/07/17 [Last Taken 10/11/17] Ibuprofen [Motrin (*)] 800 mg PO DAILY PRN 10/07/17 [Last Taken 10/05/17] Potassium Chloride [Klor-Con 10] 10 meq PO BID 10/07/17 [Last Taken 10/11/17 12: 00] oxyCODONE/APAP 5/325 [Percocet 5/325 (*)] 1 - 2 tab PO Q6H PRN 10/07/17 [Last Taken 09/12/17] IgG/Hyaluronidase,Recombinant .ROUTE 10/12/17 [Last Taken 09/13/17] - NPO status NPO Status: no food or drink >8 hours NPO Since - Liquids (Date): 10/12/17 NPO Since - Liquids (Time): 05:30 NPO Since - Solids (Date): 10/11/17 NPO Since - Solids (Time): 21:00 - Smoking Hx Smoking Status: Former smoker - Family Anes Hx Family Hx Anesthesia Complications: none ANE Labs/Vital Signs - Vital Signs Blood Pressure: 119/79 Heart Rate: 54 Respiratory Rate: 16 O2 Sat (%): 92 Height: 6 ft 3.5 in Weight: 104.326 kg ANE Physical Exam - Airway Neck exam: FROM Mallampati Score: Class 2 Mouth exam: normal dental/mouth exam - Pulmonary Pulmonary: no respiratory distress - Cardiovascular Cardiovascular: regular rate and rhythym - ASA Status ASA Status: II ANE Anesthesia Plan Anesthesia Plan: general endotracheal anesthesia
[2017-10-12] MEDS ORDERED: fentaNYL 250 MCG/5 ML INJ ONE (07:21)
[2017-10-12] MEDS ORDERED: PROPOFOL/EMULSION 500 MG/50 ML BOTTLE IV ONE (07:22)
[2017-10-12] MEDS ORDERED: ROCURONIUM 100 MG/10 ML VIAL ONE (07:24)
--- NOTE | 2017-10-12 07:25 | PDHPUP ---
History & Physical Update H&P update statement: This history and physical update is based on an assessment of the patient which was completed after admission or registration (within 24 hours), but prior to the surgery/procedure. H&P update: H&P reviewed & patient examined, no change in patient's condition since H&P completed
[2017-10-12 07:26] LABS: PLATELET COUNT 146 10^3/uL (150-400)
[2017-10-12] MEDS ORDERED: BUPIVACAINE 0.5% 30 ML SDV ONE (08:29)
[2017-10-12] MEDS ORDERED: PROPOFOL 200 MG/20 ML VIAL ONE (09:29)
[2017-10-12] MEDS ORDERED: fentaNYL 100 MCG/2 ML INJ ONE (09:39)
[2017-10-12] MEDS ORDERED: GLYCOPYRROLATE 0.2 MG/1 ML VIAL ONE ×3 (09:45)
--- NOTE | 2017-10-12 09:57 | POSTOPPROG ---
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 Procedure: open colostomy take down Findings: distal colon readily identified Inf/Abcess present in the surg proc area at time of surgery?: No EBL: 400cc Complications: none Drains: Tatyana Specimen(s): colostomy takedown with partial colectomy to pathology
[2017-10-12] MEDS ORDERED: HYDROmorphONE/DILAUDID 1 MG/ML INJ IVP PRN (09:58)
[2017-10-12] MEDS ORDERED: ONDANSETRON 4 MG/2 ML VIAL IVP PRN ×2 (09:58→10:00)
[2017-10-12] MEDS ORDERED: CETIRIZINE 10 MG TAB PO PRN (09:59)
[2017-10-12] MEDS ORDERED: HYDROmorphONE/DILAUDID 2 MG/ML INJ IVP PRN (10:00)
[2017-10-12] MEDS ORDERED: NALOXONE HCL 0.4 MG/ML INJ IVP PRN (10:00)
[2017-10-12] MEDS ORDERED: NS W/ 20 KCl/L 1,000 ML IV SCH (10:00)
[2017-10-12] MEDS ORDERED: fentaNYL 100 MCG/2 ML INJ IVP PRN (10:00)
[2017-10-12] MEDS: KETOROLAC 15 MG/1 ML SDV IVP SCH ×2 (12:06→18:31)
[2017-10-12] MEDS: OXYCODONE/APAP 5/325 TAB PO PRN ×2 (17:02→21:57)
[2017-10-12] MEDS ORDERED: NON-FORMULARY NEW DRUG (Potassium Chloride [Klor-Con 10] 10 MEQ) PO SCH (21:00)
[2017-10-12] MEDS: POTASSIUM CL 10 MEQ TAB PO SCH (21:58)
[2017-10-13] MEDS: KETOROLAC 15 MG/1 ML SDV IVP SCH ×3 (00:30→12:52)
[2017-10-13] MEDS: OXYCODONE/APAP 5/325 TAB PO PRN ×3 (06:06→14:39)
[2017-10-13 07:40] VITALS: RESP 16
[2017-10-13] MEDS ORDERED: HYDROCHLOROTHIAZIDE 25 MG TAB PO SCH (09:00)
[2017-10-13] MEDS: POTASSIUM CL 10 MEQ TAB PO SCH (09:28)
[2017-10-13] MEDS ORDERED: NS 500 ML IV ONE (09:47)
--- NOTE | 2017-10-13 09:57 | SOAPPROG ---
SOAP Progress Note Assessment/Plan: Assessment/Plan: 62 Y M s/p colostomy takedown. POD#1. Hypotension. Asymptomatic. Will give bolus. Ileus. Passing some gas. Will advance diet. Wound. Dressing changed. Has adriana drain. Dispo: possibly home later today, more likely tomorrow. pending bowel function and BP. S: pain controlled. tolerating diet. eager to go home but wants to do what is right. O: alert, nad ctab rrr abd soft, +BS, inc clean, dried serosanguinous drainage on dressing 10/13/17 09:55 Objective: Vital Signs Temp Pulse Resp BP Pulse Ox 36.7 C 69 16 92/56 L 96 10/13/17 07:39 10/13/17 07:39 10/13/17 07:39 10/13/17 09:29 10/13/17 07:39 Laboratory Results 10/13/17 04:43 10/13/17 04:43 10/12/17 10/13/17 10/14/17 05:59 05:59 05:59 Intake Total 1930 645 Output Total 1625 25 Balance 305 620 ICD10 Worksheet Patient Problems: Problems Problem Status Onset Perirectal abscess Acute
--- NOTE | 2017-10-13 10:30 | PDMN ---
Medical Necessity Medical necessity: MCG GRG gen. sgy 3 days INPT only list CPT 47684 sgy : open colostomy take down,
[2017-10-13 11:23] VITALS: BP 122/64; PULSE 68; TEMP 99.1; O2SAT 94
--- NOTE | 2017-10-13 12:30 | ASMTCMCOM ---
CM Note CM Note Notes: Spoke w/RN, anticipate pt will dc home with support of when medically stable. CM available for any changes. DC Plan: Independent Date Signed: 10/13/2017 12:30 PM Electronically Signed By:Harmony Cantu RN
[2017-10-13] MEDS ORDERED: HYDROmorphone HCL/NS 0.5 MG/ML SYR IVP PRN (14:30)
[2017-10-14] MEDS ORDERED: APIXABAN 5 MG TAB PO SCH (09:00)
--- NOTE | 2017-10-18 21:18 | GOP ---
[f rep st] OPERATIVE REPORT DATE OF OPERATION: 10/12/2017 SURGEON: Ta Weems MD GARBAGE COLLECTION SUPERVISOR: SRINIVAS Blanco ANESTHESIOLOGIST: Seun Melendez MD PREOPERATIVE DIAGNOSIS: Colostomy. POSTOPERATIVE DIAGNOSIS: Colostomy. PROCEDURE PERFORMED: Open colostomy takedown with partial colectomy. 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 He is well healed and time for colostomy takedown. DESCRIPTION OF PROCEDURE: Patient was taken to the operating room where he received satisfactory general endotracheal anesthesia by Dr. Melendez, placed in supine position, prepped and draped in the usual sterile fashion. A circular incision was made around the ostomy opening. The dissection extended down through the subcutaneous tissue and down to the fascia where the proximal bowel was mobilized and brought out through this incision. The incision was slightly enlarged to find the distal end of the bowel. Some significant hemorrhage was encountered in the musculature, which required suture ligation with a 2-0 Vicryl suture. The distal small bowel was identified , dissected free from its adherence to the anterior abdominal wall until it could be delivered up into the wound as well. Portions of the bowel were resected back to good viable bowel with excellent blood supply, and a side-to- side anastomosis was created with a OFE stapler, and a cross application was done to close the insertion site. Suture line was reinforced with interrupted 3 -0 silk sutures, and the mesentery was closed with a running 3-0 Vicryl suture. Hemostasis was assured. The bowel was returned back into the abdomen. The wound was then closed with a running #1 PDS suture for the musculature. The subcu was drained with a quarter -inch [place] drain, brought out through corners of the incisions, which was then closed with skin jami. Wounds were all infiltrated with 0.5% Marcaine. He tolerated the procedure well. Blood loss was 300 cc. There were no complications. He was taken to the recovery room in good condition. /[id number]/MODL MTDD
== END 2017-10-13 14:47 | disposition home or self-care (01) | DRG 330 ==
LOC: F3E 06:31 → EEVIPCON 08:00 → F3E 11:31
PROVIDERS: ADMIT Surgery; ATTEND Surgery
PROC: 0DSE0ZZ Reposition Large Intestine, Open Approach (ICD-10-PCS; principal; 2017-10-12 08:00)
DX: Z43.3 Encounter for attention to colostomy (principal); C91.10 Chronic lymphocytic leukemia of B-cell type not having achieved remission; I10 Essential (primary) hypertension; Z79.01 Long term (current) use of anticoagulants; Z86.718 Personal history of other venous thrombosis and embolism
CPT/HCPCS: J0694; J1885; J2250; J2704; J3010